=== PATIENT | female | born 1980 | race Caucasian/White ===

== ENCOUNTER 2019-12-27 06:49 | Outpatient (CLI) | payer MEDICARE, MEDICAID, SELFPAY ==
--- NOTE | ~2019-12-27 | MR_ITS ---
EXAMINATION: MR lumbar spine wo con EXAM DATE: 12/27/2019 07:45 INDICATION: Lumbar radiculopathy. TECHNIQUE: Multi-sequential, multiplanar MR images of the lumbar spine were obtained without contrast . Sagittal T1, T2, T2 fat saturation images. Axial T2 weighted images. Comparison is made to prior examination from 01/21/2019. FINDINGS: Moderate disc disease L5-S1. The vertebral body and disc heights are otherwise well maintai jesús. The vertebral bodies are aligned in the AP dimension. The conus medullaris terminates at the L1/ 2 level and has normal signal intensity and morphology. There are no suspicious marrow signal abnorm alities. Paraspinal soft tissue is unremarkable. Level by level evaluation: T12-L1: Disc does not extend beyond the endplate margin. Facet arthropathy: None. Neural foraminal stenosis: No stenosis. Central canal stenosis: No stenosis. L1-L2: Disc does not extend beyond the endplate margin. Facet arthropathy: None. Neural foraminal stenosis: No stenosis. Central canal stenosis: No stenosis. L2-L3: Disc does not extend beyond the endplate margin. Facet arthropathy: None. Neural foraminal stenosis: No stenosis. Central canal stenosis: No stenosis. L3-L4: Disc does not extend beyond the endplate margin. Facet arthropathy: Mild. Neural foraminal stenosis: No stenosis. Central canal stenosis: No stenosis. L4-L5: There is a minimal diffuse disc bulge. Facet arthropathy: Mild. Neural foraminal stenosis: No stenosis. Central canal stenosis: No stenosis. L5-S1: There is a moderate diffuse disc bulge. Facet arthropathy: Mild to moderate. Neural foraminal stenosis: Mild left. Central canal stenosis: Mild to moderate. Difficult to appreciate any significant change compared to prior study. IMPRESSION: 1. L5-S1 moderate disc disease, mild arthropathy. Reviewed, dictated and finalized at location A.
== END 2019-12-27 06:50 | disposition home or self-care (01) ==
LOC: ANHIMG 06:51
PROVIDERS: PCP Family Medicine; Visit Provider Nurse Practitioner Adult Health
DX: M54.16 Radiculopathy, lumbar region (principal); M51.36 Other intervertebral disc degeneration, lumbar region
CPT/HCPCS: 72148

== ENCOUNTER → 2020-03-28 08:27 | Outpatient (CLI) | payer MEDICARE, MEDICAID, SELFPAY ==
--- NOTE | ~2020-03-28 | XR_ITS ---
XR knee RT min 4V 03/28/2020 08:44 Indication: Right knee pain Procedure: 4 views right knee Comparison: 03/06/2010 Findings: No fracture, subluxation or dislocation. No significant joint space narrowing. No joint eff usion. No foreign bodies. Impression: 1: No significant bone or joint abnormality. Reviewed, dictated and finalized at location A. NG BOOKKEEPER Impression: 1: No significant bone or joint abnormality.
== END ==
PROVIDERS: Visit Provider Nurse Practitioner Adult Health
DX: M25.561 Pain in right knee (principal)
CPT/HCPCS: 73564

== ENCOUNTER 2020-05-16 07:43 | Outpatient (CLI) | payer MEDICARE, MEDICAID, SELFPAY ==
--- NOTE | ~2020-05-16 | MM_ITS ---
EXAMINATION: MM screening farshad BI w lisa HISTORY: Screening mammogram TECHNIQUE: Craniocaudal and mediolateral oblique 3-D tomosynthesis images were obtained and synthetic 2-D images were generated. CAD analysis was submitted and interpreted. COMPARISON: No prior mammogram is available for comparison at this institution. BREAST PARENCHYMAL COMPOSITION: The breasts are heterogeneously dense, which may obscure small masses . FINDINGS: There are several biopsy markers on the right. Several stable circumscribed masses are note d in the outer right breast, not significantly changed since 04/14/2019. There is no evidence of interval suspicious mass, calcification, or architectural distortion to sugg est malignancy in either breast. There has been no suspicious interval change. IMPRESSION: 1. No mammographic evidence of malignancy. 2. Recommend routine screening mammography in one year. BI-RADS Category 2: Benign finding(s). Reviewed, dictated and finalized at location A. INSTALLER
== END 2020-05-16 07:44 | disposition home or self-care (01) ==
LOC: ANHIMG 07:49
PROVIDERS: Visit Provider Obstetrics & Gynecology
DX: Z12.31 Encounter for screening mammogram for malignant neoplasm of breast (principal)
CPT/HCPCS: 77063; 77067

== ENCOUNTER 2020-06-30 15:40 | Emergency (ER) | payer MEDICARE, MEDICAID, SELFPAY ==
--- NOTE | ~2020-06-30 | XR_ITS ---
EXAMINATION: XR foot RT min 3V DATE: 06/30/2020 16:20 INDICATION: Right foot pain. TECHNIQUE: 4 views of right foot were obtained. COMPARISON: Right foot radiographs 01/11/2009 FINDINGS: There is moderate hallux valgus. No fracture. There is mild osteoarthritis of first metatar sophalangeal joint and fourth tarsometatarsal joint. There are enthesophytes at the posterior and theodore ntar aspects of calcaneal tuberosity. IMPRESSION: 1. Moderate hallux valgus. 2. Mild polyarticular osteoarthritis. Reviewed, dictated and finalized at location A. E SPECIALIST
--- NOTE | 2020-06-30 15:43 | ED.GENADULT ---
HPI - General Adult General Chief complaint: Extremity Injury, Lower Stated complaint: Right toe pain Time Seen by Provider: 06/30/20 15:43 Source: patient Mode of arrival: ambulatory Limitations: no limitations History of Present Illness HPI narrative: 40-year-old female patient presents to the [facility] with complaints of right second toe pain since yesterday. Denies any specific injury to the toe. Patient states she is not currently working at this time due to being on disability from a back injury. Patient does have history of type 2 diabetes and she does states she is concerned because her father ended up getting his leg amputated due to a broken toe that got infected. Patient states that she did take some in her milligrams ibuprofen that she does take daily. Denies any swelling or redness. Related Data Home Medications Medication Instructions Recorded Confirmed albuterol sulfate 1 inh INHALATION QID PRN 05/01/19 05/01/19 cyclobenzaprine 10 mg PO TID 05/01/19 05/01/19 duloxetine [Cymbalta] 30 mg PO DAILY 05/01/19 05/01/19 gabapentin 600 mg PO HS 05/01/19 05/01/19 oxycodone 10 mg PO TID PRN 05/01/19 05/01/19 atorvastatin 10 mg PO DAILY 06/30/20 06/30/20 famotidine 20 mg PO DAILY 06/30/20 06/30/20 hydrochlorothiazide 25 mg PO DAILY 06/30/20 06/30/20 ibuprofen 800 mg PO Q6H 06/30/20 06/30/20 metformin 1,000 mg PO DAILY 06/30/20 06/30/20 Allergies Allergy/AdvReac Type Severity Reaction Status Date / Time Sulfa (Sulfonamide Allergy Severe RASH Unverified 06/30/20 15:56 Antibiotics) phenol Allergy Unknown LOWER LIP Unverified 06/30/20 15:56 SWELLED SEVERELY CAMPHOR Allergy Unknown LOWER LIP Uncoded 06/30/20 15:56 SWELLED SEVERELY Review of Systems Review of Systems: Narrative: CONSTITUTIONAL: Denies fever, chills, or sweats. EYES: Denies visual changes, redness, or discharge. ENT: Denies rhinorrhea, congestion, sore throat, or otalgia. CARDIOVASCULAR: Denies chest pain, palpitations, or edema. RESPIRATORY: Denies cough or dyspnea. GASTROINTESTINAL: Denies abdominal pain, nausea, vomiting, or diarrhea. GENITOURINARY: Denies dysuria or hematuria. SKIN: Denies rash or itching. MUSCULOSKELETAL: Denies back pain, joint pain, or myalgia. Positive right second toe pain since yesterday NEUROLOGIC: Denies headache, numbness, or weakness. PSYCHIATRIC: Denies anxiety or depression. [facility] Past Medical History Medical History (Updated 06/30/20 @ 16:30 by MARIA ELENA Brooke) Chronic back pain Diabetes Endometriosis Opioid use Ovarian cyst Surgical History Surgical History (Updated 06/30/20 @ 15:45 by MARIA ELENA Brooke) H/O dilation and curettage History of orthopedic surgery Cyst removed back of right knee 2011 History of tubal ligation Family History Family History (Updated 06/30/20 @ 15:46 by MARIA ELENA Brooke) Other Hypertension Respiratory disease Social History Social History Gender identity (if verbalized by the patient): Female Comments At the time of my signature I agree with nursing past medical history, surgical, social, and family history. There is no relevant family history pertinent to the presenting complaint. Exam Narrative: Exam Narrative: GENERAL: Well-appearing, well-nourished, and in no acute distress. HEAD: Normocephalic, atraumatic. EYES: PERRLA and EOMI. ENT: Nares clear, no rhinorrhea or epistaxis. Mucous membranes moist. NECK: Supple. No lymphadenopathy CHEST: Clear to auscultation. No respiratory distress. HEART: Regular rate and rhythm. No murmur heard. Normal peripheral pulses. ABDOMEN: Soft, nontender, nondistended, normal active bowel sounds. EXTREMITIES: Patient able to bear weight and ambulate but complains of pain when walking to the sole under the right second toe.. No surface trauma, ecchymosis, erythema, lesions, ulcers or break in skin integrity. Patient has very slight swell
[2020-06-30 15:59] VITALS: BP 141/65; PULSE 90; RESP 18; TEMP 37.1; O2SAT 98
[2020-06-30 16:04] VITALS: BP 141/65; PULSE 90; RESP 18; TEMP 37.1; O2SAT 98
== END 2020-06-30 16:33 | disposition home or self-care (01) ==
PROVIDERS: Emergency Provider Nurse Practitioner Family; PCP Family Medicine
DX: M21.611 Bunion of right foot (principal); E11.9 Type 2 diabetes mellitus without complications; N80.9 Endometriosis, unspecified; Z79.84 Long term (current) use of oral hypoglycemic drugs
CPT/HCPCS: 73630; 99213; G0463

== ENCOUNTER 2021-06-12 11:04 | Outpatient (CLI) | payer MEDICARE, MEDICAID, SELFPAY ==
--- NOTE | ~2021-06-12 | MMUS_ITS ---
EXAMINATION: MM diagnostic farshad BI w lisa, US breast RT limited HISTORY: Palpable right breast lump TECHNIQUE: Additional 3-D tomosynthesis images of the breasts were performed and synthetic 2-D images were generated. CAD analysis was submitted and interpreted. High resolution Limited right breast ult rasound was performed. COMPARISON: Comparison to multiple prior studies sequentially, with oldest reviewed study dated 04/02/2018. BREAST PARENCHYMAL COMPOSITION: Breast composed of scattered areas of fibroglandular density FINDINGS: MAMMOGRAPHIC FINDINGS: The left breast is stable without evidence for malignancy. There are multiple right breast or masses. There are 3 tissue markers in the right breast. ULTRASOUND: Limited right breast ultrasound: A At 9:00, 5 cm from the nipple there is an oval hypoechoic mass measuring 11 x 8 x 10 mm. No internal vascularity or posterior features. Parallel orientation. At 10:00, 6 cm from the nipple there is an o lisette circumscribed hypoechoic mass measuring 1.4 x 0.8 x 1.3 cm without significant posterior features or internal vascularity. At 10:00, 7 cm from the nipple there is an oval hypoechoic mass measuring 1 .2 x 1.3 x 0.6 cm without posterior features or internal vascularity. In the area of palpable concern at 7:00, 5 cm from the nipple there is a slightly lobulated hypoechoic mass measuring 1.4 x 1.2 x 1. 5 cm. There is minimal marginal vascularity. No significant posterior features. This corresponds to a mass seen on mammography in the lower outer quadrant which has increased in size slightly compared w ith 04/14/2019. IMPRESSION: 1. Slightly increased size of mass of the right breast located at 7:00, 5 cm from the nipple which co rresponds to the palpable finding. 2. Ultrasound-guided right breast biopsy recommended. BI-RADS category 4, suspicious findings. Reviewed, dictated and finalized at location A. BROKER IMPRESSION: 1. Slightly increased size of mass of the right breast located at 7:00, 5 cm fr om the nipple which corresponds to the palpable finding. 2. Ultrasound-guided right breast biopsy recommended. BI-RADS category 4, suspicious findings.
== END 2021-06-12 11:05 | disposition home or self-care (01) ==
LOC: ANHIMG 11:06
PROVIDERS: PCP Family Medicine; Visit Provider Family Medicine
DX: N63.15 Unspecified lump in the right breast, overlapping quadrants (principal); N63.13 Unspecified lump in the right breast, lower outer quadrant; N63.11 Unspecified lump in the right breast, upper outer quadrant
CPT/HCPCS: 76642; 77062; 77066; G0279

== ENCOUNTER 2022-10-24 12:08 | Outpatient (CLI) | payer MEDICARE, MEDICAID, SELFPAY ==
--- NOTE | 2022-10-24 | ECG_ITS ---
Measurements Intervals [place] Rate: 82 P: -10 [place]: 158 QRS: 27 QRSD: 102 T: 72 QT: 396 QTc: 464 Interpretive Statements SINUS RHYTHM WITH OCCASIONAL ECTOPIC PREMATURE COMPLEXES NO PREVIOUS ECG AVAILABLE FOR COMPARISON Electronically Signed On 10-24-2022 15:29:28 CDT by Ana Johnston M.D.
[2022-10-24 13:00] LABS: Anion Gap 6 mmol/L (8-16); Blood Urea Nitrogen 15 mg/dL (7-17); Calcium 8.8 mg/dL (8.4-10.2); Carbon Dioxide 32 mmol/L (22-30); Chloride 101 mmol/L (98-107); Estimated Glomerular Filt Rate > 60; Glucose 131 mg/dL (65-110); Potassium 3.5 mmol/L (3.4-5.0); Sodium 139 mmol/L (137-145)
== END 2022-10-24 12:09 | disposition home or self-care (01) ==
PROVIDERS: PCP Family Medicine; Visit Provider Orthopaedic Surgery
DX: Z01.818 Encounter for other preprocedural examination (principal)
CPT/HCPCS: 36415; 80048; 93005

== ENCOUNTER 2023-08-10 08:08 | Emergency (ER) | payer MEDICARE, MEDICAID, SELFPAY ==
[2023-08-10 08:25] VITALS: BP 149/80; PULSE 94; RESP 16; TEMP 36.4; O2SAT 98
--- NOTE | 2023-08-10 08:42 | ED.URI ---
HPI - URI/Sore Throat General Chief Complaint: Upper Respiratory Infection Stated Complaint: Sore Throat Time Seen by Provider: 08/10/23 08:29 Source: patient and RN notes reviewed Mode of arrival: ambulatory Limitations: no limitations History of Present Illness HPI Narrative: Patient presents today complaining of sore throat, nasal congestion, fever up to 101, and body aches since yesterday. She has been taking ibuprofen and her home [place] with mild relief. States pain in the throat is only present with swallowing. Denies shortness of breath or difficulty swallowing. No history of asthma or COPD. Smokes 1 pack per day. Related Data Home Medications Medication Instructions Recorded Confirmed albuterol sulfate 90 mcg/actuation 1 inh inhalation QID PRN Pain 05/01/19 05/01/19 aerosol inhaler cyclobenzaprine 10 mg tablet 10 mg PO TID 05/01/19 06/30/20 duloxetine 30 mg capsule,delayed 30 mg PO DAILY 05/01/19 06/30/20 release (Cymbalta) gabapentin 600 mg tablet 600 mg PO TID 05/01/19 06/30/20 oxycodone 10 mg tablet 10 mg PO TID PRN Pain 05/01/19 06/30/20 atorvastatin 10 mg tablet 10 mg PO DAILY 06/30/20 06/30/20 famotidine 20 mg tablet 20 mg PO DAILY 06/30/20 06/30/20 hydrochlorothiazide 25 mg tablet 25 mg PO DAILY 06/30/20 06/30/20 ibuprofen 800 mg tablet 800 mg PO Q6H 06/30/20 06/30/20 metformin 1,000 mg tablet,extended 1,000 mg PO DAILY 06/30/20 06/30/20 release 24hr (osmotic) Allergies Allergy/AdvReac Type Severity Reaction Status Date / Time Sulfa (Sulfonamide Allergy Severe RASH Unverified 06/30/20 15:56 Antibiotics) phenol Allergy Unknown LOWER LIP Unverified 06/30/20 15:56 SWELLED SEVERELY CAMPHOR Allergy Unknown LOWER LIP Uncoded 06/30/20 15:56 SWELLED SEVERELY Review of Systems Review of Systems: CONSTITUTIONAL: Denies chills, or sweats.+ body aches, fever EYES: Denies visual changes, redness, or discharge. ENT: Denies rhinorrhea, or otalgia.+ congestion, sore throat CARDIOVASCULAR: Denies chest pain, palpitations, or edema. RESPIRATORY: Denies cough or dyspnea. GASTROINTESTINAL: Denies abdominal pain, nausea, vomiting, or diarrhea. GENITOURINARY: Denies dysuria or hematuria. SKIN: Denies rash, itching, or wounds. MUSCULOSKELETAL: Denies back pain, joint pain, or myalgia. NEUROLOGIC: Denies headache, numbness, tingling, or weakness. PSYCH: Denies depression or anxiety. [facility] Past Medical History Medical History Chronic back pain Diabetes Endometriosis Opioid use Ovarian cyst Surgical History Surgical History H/O dilation and curettage History of orthopedic surgery Cyst removed back of right knee 2011 History of tubal ligation Family History Family History Other Hypertension Respiratory disease Social History Social History Gender identity (if verbalized by the patient): Female Comments At time of signature, I have reviewed and agree with nursing past medical, surgical, social and family history unless otherwise noted. Please see nursing chart for further information. There is no relevant family history pertinent to the presenting complaint Exam Narrative: GENERAL: Well-appearing, well-nourished, and in no acute distress. HEAD: Normocephalic, atraumatic. EYES: EOMI. No redness or drainage. Conjunctivae normal. ENT: Mucous membranes pink and moist. Nares clear. No rhinorrhea. TMs normal bilaterally. Throat erythematous and mildly edematous. Moderate white exudate. Uvula midline. NECK: Normal AROM. Supple. Bilateral anterior cervical chain lymphadenopathy. CHEST: No respiratory distress. Clear to auscultation. HEART: Regular rate and rhythm. No murmur appreciated. Normal peripheral pulses. EXTREM
== END 2023-08-10 09:02 | disposition home or self-care (01) ==
PROVIDERS: Emergency Provider Nurse Practitioner; PCP Family Medicine
DX: B34.9 Viral infection, unspecified (principal); Z20.822 Contact with and (suspected) exposure to COVID-19; E11.9 Type 2 diabetes mellitus without complications; N80.9 Endometriosis, unspecified
CPT/HCPCS: 87081; 87426; 87804; 87880; 99213; G0463

== ENCOUNTER 2024-08-10 00:15 | Day surgery (SDC) | payer MEDICARE, MEDICAID, SELFPAY ==
[2024-07-29 13:03] VITALS: BMI 28.2
--- OUTSIDE RECORDS SUMMARY | 2024-08-10 00:18 | XMS_ITS | Clinical Summary ---
Author Organization [facility] Address [id number] [place] [phone] Phone Care Team Providers Care Optical Instrument Repairer Name Role Phone Tabitha Felix MD Primary Care Provider + Allergies Active Allergy Reactions Criticality Noted Date Comments Sulfa (Sulfonamide Antibiotics) Itching Low 04/25 Unclassified Drug Swelling Low 05/06/2018 Medications cyclobenzaprine (FLEXERIL) 10 mg tablet Take 10 mg by mouth 3 times daily as needed for Spasm. Active fluticasone (FLONASE) 50 mcg/spray [place], Suspension Administer 2 Sprays in each nostril daily. Active famotidine (PEPCID) 20 mg tablet Take 20 mg by mouth 2 times daily. Active gabapentin (NEURONTIN) 600 mg tablet Take 600 mg by mouth daily. Active ibuprofen (MOTRIN) 800 mg tablet Take 800 mg by mouth every 6 hours as needed for Pain, Mild. Active phentermine (ADIPEX P) 37.5 mg tablet Take 37.5 mg by mouth daily before breakfast. 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 Gender Identity Not on file Sexual Orientation Not on file Last Filed Vital Signs Vital Sign Reading Time Taken Comments Blood Pressure 132/89 09/09/2018 9:53 AM CDT Pulse 77 09/09/2018 9:53 AM CDT Temperature 36.9 C (98.4 F) 09/09/2018 9:53 AM CDT Respiratory Rate - - Oxygen Saturation 99% 09/09/2018 9:53 AM CDT Inhaled Oxygen Concentration - - Weight 85 kg (187 lb 8 oz) 09/09/2018 9:53 AM CD T Height 172.7 cm (5' 8 ) 09/09/2018 9:53 AM CDT Body Mass Index 28.51 09/09/2018 9:53 AM CDT Plan of Treatment Health Maintenance Due Date Last Done Comments DTAP/TDAP/TD VACCINES (1 - Tdap) 1998 HEPATITIS B VACCINES (1 of 3 - 19+ 3-dose series) 1998 CERVICAL CANCER SCREENING 2009 BREAST CANCER SCREENING 04/15/2019 04/15/20 18, 04/15/2018, 03/26/2017, Additional history exists INFLUENZA VACCINE (#1) 2023 COLORECTAL SCREENING 2024 Colorectal Cancer Screening 2024 FIT-DNA Q 3 years 2024 FIT/FOBT Q 1 year 2024 Flex Sig/CT Colonography Q 5 years 2024 HPV VACCINES Aged Out No longer eligi ble based on patient's age to complete this topic PNEUMOCOCCAL VACCINE 0-49 YEARS Aged Out No longer eligible based on patient's age to complete this topic Procedures Procedure Name Priority Date/Time Associated Diagnosis Comments MAMMO DIAGNOSTIC UNI RIGHT W OR WO CAD Routine 04/15/2018 from Last 3 Months or Most Recently Relevant to Health Maintenance Results * (ABNORMAL) MAMMO DIAGNOSTIC UNI RIGHT W OR WO CAD (04/15/2018) Anatomical Region Laterality Modality Breast Right Other us Abstract Provider MAMMO ORDERABLES Edited Result - Final from Last 3 Months or Most Recently Relevant to Health Maintenance Insurance [facility] [employer] MEDICAID Care Teams Optical Instrument Repairer Relationship Specialty Start Date End Date Tabitha Felix MD [address] [place] [address] [place] [id number] PCP - General Family Practice 05/06/18
--- OUTSIDE RECORDS SUMMARY | 2024-08-10 00:18 | XMS_ITS | Clinical Summary ---
Author Organization [facility] Address [address] [place] [address] Care Team Providers Care Hazardous Material Specialist Name Role Phone Tabitha Felix MD Primary Care Provider + Allergies Active Allergy Reactions Criticality Noted Date Comments Camphor-Phenol Seizures High 07/18/2021 Semaglutide Other (See comments) Low 10/12/2023 Pt reports sunburn feeling on skin with increased dose but is able to tolerate 1 mg Sulfa (Sulfonamide Antibiotics) Rash Medium 07/05/2020 Bupropion Headache Low 10/12/2023 Medications atorvastatin (LIPITOR) 20 mg tablet Take 1 tablet (20 mg total) by mouth daily 0 Active famotidine (PEPCID) 20 mg tablet Take by mouth 2 (two) times a day as needed 1 Active cyclobenzaprine (FLEXERIL) 10 mg tablet Take 1 tablet (10 mg total) by mouth every 8 (eight) hours as needed for muscle spasms 0 Active hydroCHLOROthia zide (HYDRODIURIL) 25 mg tablet Take 1 tablet (25 mg total) by mouth daily 0 Active ibuprofen (ADVIL,MOTRIN) 800 mg tablet Take 1 tablet (800 mg total) by mouth 3 (three) times a day as needed for headaches 1 Active potassium chloride ER (KLOR-CON) 20 mEq CR tablet Take 1 tablet (20 mEq total) by mouth daily Active OneTouch Verio test strips strip USE DIRECTED TO TEST BLOOD SUGARS ONCE DAILY 1 Active HYDROcodone-chica taminophen (NORCO) 10-325 mg per tablet Take 1 tablet by mouth 3 (three) times a day Active valACYclovir (VALTREX) 1 gram tablet Take 1 tablet (1,000 mg total) by mouth 2 (two) times a day as needed (cold sores) 3 Active pregabalin (LYRICA) 150 mg capsule Take 1 capsule (150 mg total) by mouth 2 (two) times a day 60 capsule 5 4 Active aspirin 81 mg enteric coated tablet Take 1 tablet (81 mg total) by mouth daily Active DULoxetine DR (CYMBALTA) 30 mg capsule Take 1 capsule (30 mg total) by mouth daily Active metFORMIN (GLUCOPHAGE) 500 mg tablet Take 1 tablet (500 mg total) by mouth nightly Active semaglutide (Ozempic) 1 mg/dose (4 mg/3 mL) pen injector injection Inject 1 mg under the skin every 7 days saturdays Active potassium chloride ER (KLOR-CON) 20 mEq CR tablet Take 2 tablets (40 mEq total) by mouth daily 30 tablet 4 Active ketorolac (TORADOL) 10 mg tablet Take 1 tablet (10 mg total) by mouth every 6 (six) hours as needed for pain 20 tablet 4 Active prochlorperazin e (COMPAZINE) 10 mg tablet Take 1 tablet (10 mg total) by mouth 2 (two) times a day as needed for nausea or vomiting 10 tablet 4 Active diphenhydrAMINE 25 mg capsule Take 1 tablet/capsule (25 mg total) by mouth every 6 (six) hours as needed for itching 20 capsule 4 Active SUMAtriptan (IMITREX) 100 mg tablet 4 Active acetaZOLAMIDE ER (DIAMOX SEQUAL) 500 mg capsule Take 1 capsule (500 mg total) by mouth 2 (two) times a day 60 capsule 11 4 Active Active Problems Problem Noted Date Diagnosed Date Idiopathic intracranial hypertension 10/28/2023 Overview (04/08/2024): --Presented to ED on 10/12/23 w/ flashes of light OS that started day prior. Denied HAs --Exam with bilateral optic disc edema w/ preserved afferent optic nerve function --MRI brain/orbits WWO + MRV with empty sella --LP normal w/ high OP (43) --Negative serologies: RPR, test Assessment & Plan (04/08/2024 5:14 PM METALIZING MACHINE OPERATOR): - Patient feels that her symptoms are continuing to improve - Exam with resolving disc edema OS, resolved OD. Good afferent nerve function OU - Taking Diamox 500mg BID PO without side effects Plan - Continue diamox 500mg BID - RTC in 4 months with OCT nerve OU, DFE OU Assessment & Plan (03/04/2024 4:39 PM CDT): - Patient feels that her symptoms are improving - Exam with resolving disc edema OS, resolved OD. Good afferent nerve function OU - Taking Diamox 1g BID PO (notes significant tingling of fingers, toes, face, etc.). Plan - Decrease diamox 500mg BID - RTC in 6 weeks with OCT nerve OU, DFE OU Assessment & Plan (12/12/2023 2:24 PM CDT): - Patient feels that her symptoms are stable (stable enlarged blind spot OS) - Exam with persistent disc edema OU, but slightly improved. Good afferent nerve function OU - Taking Diamox 1g BID PO (notes significant tingling of fingers, toes, face, etc.). Plan - Continue diamox 1g BID - RTC 6 weeks w/ dilated fundus exam (DFE) OU, OCT nerve Assessment & Plan (10/28/2023 12:26 PM CDT): --patient has had persistent headaches, large norwood spot centrally OS --exam with grade 2 disc edema OD, grade 3 disc edema OS. 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 Good afferent nerve function OU. --Taking Diamox 500mg TID (increased at [facility] on 10/18) Plan --Change diamox to 1g BID --HVF 24-2 OU at testing only visit (attempt to coordinate with intravenous fluorescein angiography (IVFA)) --RTC 4-6 weeks w/ dilated fundus exam (DFE) OU, OCT nerve, retina, and HVF 24-2 Choroidal neovascular membrane of left eye 10/27 Overview (12/12/2023): - IVFA completed 11/05/23 with diffuse leakage around the left ONH and superior disc margin. 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 Assessment & Plan (04/08/2024 5:13 PM METALIZING MACHINE OPERATOR): - Today with continued resolution of subretinal hemorrhage (SRH), resolved peripapillary exudates / drusen. VA excellent centrally. - F/u with [facility] on 12/23 w/ appropriate OCT mac with fluid resolution. No anti-VEGF injection Assessment & Plan (03/04/2024 4:40 PM CDT): - Today with resolved subretinal hemorrhage (SRH), resolved peripapillary exudates / drusen. VA excellent centrally. - OCT nerve with resolving RNFL edema - F/u with [facility] on 12/23 w/ appropriate OCT mac with fluid resolution. No anti-VEGF injection Plan - Decrease diamox 500mg BID - RTC in 6 weeks with OCT nerve OU, DFE OU Assessment & Plan (12/24/2023 2:18 PM CDT): Patient with diagnosed IIH with subretinal hemorrhage OS as well. IVFA completed 11/05/23 with diffuse leakage around the left ONH and superior disc margin. 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 Today, SRH resolved. VA remains excellent centrally as well. OCT mac with fluid resolution. Continuing to observe without injection. Keep appt with [facility] as well for managing IIH. Retina PRN Assessment & Plan (12/12/2023 2:21 PM CDT): - Today with resolved subretinal hemorrhage (SRH), persistent peripapillary exudates / drusen. VA excellent centrally. OCT mac confirms resolution of subretinal fluid (SRF). - Follows with retina (next appt 12/23/23). Deferring antiVEGF injections for now. Assessment & Plan (11/19/2023 12:44 PM CDT): Patient with newly diagnosed IIH with subretinal hemorrhage OS as well. IVFA completed 11/05/23 with diffuse leakage around the left ONH and superior disc margin. 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 Today, SRH continues to improve. VA remains excellent centrally as well. OCT mac with fluid resolution. Given underlying active IIH, discussed in detail r/b/a of antiVEGF injections and she would like to continue to observe. Given continued improvement on exam, recommend close monitoring. Plan for RTC 4 weeks for DFEx OU and OCT mac OU Keep appt with [facility] as well for managing IIH. Assessment & Plan (11/12/2023 11:13 AM CDT): Patient with newly diagnosed IIH with subretinal hemorrhage OS as well. IVFA completed 11/05/23 with diffuse leakage around the left ONH and superior disc margin. Today with improved SRH. VA remains excellent centrally as well. 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 We discussed in detail r/b/a of antiVEGF and for now will observe very closely. Will have her return in 1 week for DFE OU, fundus photos OU (at [facility]), OCT mac OU, possible antiVEGF OS Assessment & Plan (10/28/2023 12:24 PM CDT): --patient reporting persistent central norwood spot, unchanged since starting Diamox --ED presentation on 10/12/2023 consistent with IIH --exam today with bilateral disc edema as well as large peripapillary subretinal hemorrhage concerning for choroidal neovascular membrane in the setting of peripapillary disruption of Bruchs membrane secondary to optic disc edema Plan --HVF 24-2 OU and intravenous fluorescein angiography (IVFA) at the [facility] (testing visit) in 1 week --[facility] retina in 2 weeks for interpretation of above testing, dilated fundus exam (DFE) OU, OCT retina OU, OCT nerve OU Visual field scotoma 10/13/2023 Visual impairment 10/13/2023 Type 2 diabetes mellitus without complication Abnormal weight gain 09/05/2022 Hypercalcemia 09/05/2022 Mild dietary indigestion 09/05/2022 Torticollis 09/05/2022 Menopausal symptom 09/02/2022 Vitamin D deficiency 09/02/2022 Ingrowing toenail 08/19/2022 Dehiscence of operative wound 11/12/2021 Bunion 09/06/2021 Cigarette smoker 09/06/2021 Pain in right foot 09/06/2021 Breast mass 07/21/2021 Lumbar facet joint syndrome 07/05/2020 Myalgia 07/05/2020 Chronic bilateral low back pain without sciatica 07/05/2020 Other obesity due to excess calories 07/05/2020 Diabetes mellitus 10/15/2019 Hyperlipidemia 10/15/2019 Essential hypertension 07/21/2019 Axillary lump, left 06/16/2018 Fibrocystic breast changes, right 06/16/2018 Abnormal ultrasound of breast 05/06/2018 Fibroadenoma, right 05/06/2018 Degeneration of intervertebral disc of lumbosacr al region 09/30/2016 Pain of lower extremity 09/30/2016 Exacerbation of backache 06/26/2016 Immunizations Immunization Administration Dates Next Due Influenza, Quadrivalent, Spl it, Preservative Free, Intramuscular 02/21/2022,02/06/2021,02/22/2020,03/15,02/25/2018,05/27/2017 Influenza, Trivalent, Preser vative Free, Intramuscular 02/24/2016 Moderna SARS-CoV-2 Monovalen t Vaccination (12+ YRS) 08/15/2020,07/25/2020 Pfizer SARS-CoV-2 Monovalent Vaccination (12+ Yrs) PURPLE 05/02/2021 Tdap 06/01/2019 Surgical History Surgery Date Site/Laterality Comments KNEE SURGERY Knee Surgery - (Added by TW Conv) SD TUBOTUBAL ANASTATOMOSIS Oviductal Surgery Tubotubal Anastomosis - (Added by TW Conv) HYSTERECTOMY BREAST LUMPECTOMY BREAST BIOPSY 07/31/2021 Right BUNIONECTOMY 05/26/2021 - 05/25/2022 BREAST BIOPSY 05/12/2018 Right BREAST BIOPSY 05/12/2018 Right Medical History Medical History Date Comments Diabetes mellitus (HCC) Hypertension Type 2 diabetes mellitus (HCC) Gastric reflux Lumbar disc disease Lumbar stenosis Breast fibrosclerosis Pseudotumor cerebri Hyperlipidemia Depression Family History Medical History Relation Name Comments Diabetes Father Hypertension Father Diabetes Maternal Grandfather Hypertension Maternal Grandfather Cancer Maternal Grandmother Heart disease Maternal Grandmother Hypertension Mother Diabetes Other 1 Family history of diabetes mellitus - (Added by TW Conv) Hypertension Other 2 Family history of hypertension - (Added by TW Conv) Degenerative Disk Disease Other 3 Fa albert history of degenerative disc disease - (Added by TW Conv) Diabetes Paternal Grandfather Hypertension Paternal Grandfather Diabetes Paternal Grandmother Hypertension Paternal Grandmother Hypertension Sister Relation Name Status Comments Father Maternal Grandfather Maternal Grandmother Mother Other 1 Other 2 Other 3 Paternal Grandfather Paternal Grandmother Sister Social History Tobacco Use Types Packs/Day Years Used Date Smoking Tobacco: Every Day Smokeless Tobacco: Never Tobacco Cessation:Ready to Q uit: Yes; Counseling Given: Yes AUDIT-C Answer Date Recorded Q1: How often do you have a drink containing alc ohol? Monthly or less 10/08/2022 Q2: How many drinks containi ng alcohol do you have on a typical day when you are drinking? 1 or 2 10/08/2022 Q3: How often do you have si x or more drinks on one occasion? Never 10/08/2022 Personal Safety Answer Date Recorded Have you ever been in or are you currently in a harmful physical or emotional relationship or is someone making you feel afraid or unsafe? Denies 10/19/2023 Comments No Sex and Gender Information Value Date Recorded Sex Assigned at Not on file Legal Sex Female 10:19 AM METALIZING MACHINE OPERATOR Gender Identity Not on file Sexual Orientation Not on file Obstetrics History Last Filed Vital Signs Vital Sign Reading Time Taken Comments Blood Pressure 115/71 10/19/2023 6:45 PM CDT Pulse 68 10/19/2023 6:45 PM CDT Temperature 36.9 C (98.5 F) 10/19/2023 2:06 PM CDT Respiratory Rate 16 10/19/2023 6:45 PM CDT Oxygen Saturation 98% 10/19/2023 6:45 PM CDT Inhaled Oxygen Concentration - - Weight 85.7 kg (189 lb) 10/19/2023 2:06 PM CDT Height 170.2 cm (5' 7 ) 10/19/2023 2:06 PM CDT Body Mass Index 29.6 10/19/2023 2:06 PM CDT Plan of Treatment Health Maintenance Due Date Last Done Comments Albumin Creatinine Ratio, Urine 1979 Colon Cancer Screening-Colonoscopy 1979 Depression Screening 1979 Hemoglobin A1C 1979 Hepatitis C Screening 1979 Foot Exam 1979 Hepatitis B Screening 1997 Regular Well Visit/Exam 18-64 1997 Pneumococcal vaccine <65 (1 of 2 - PCV) 1998 Lipid Panel 02/21/2023 02/21/2022 Covid-19 Vaccine ( season) 2024 05/02/2021, 08/15/2020, 07/25/2020 Influenza Vaccine (#1) 2024 , 02/06/2021, 02/22/2020, Additional history exists eGFR 10/18/2024 10/19/2023, 10/12/2023 Breast Cancer Screening-Mammogram 12/24/2024 12/25/2023, 05/02/2022, 04/15/2018, Additional history exists Dilated Eye Exam 04/08/2025 04/08/2024, 02/2024, 12/24/2023, Additional history exists DTaP/Tdap/Td Vaccine (2 - Td or Tdap) 06/01/2029 06/01/2019 HPV Vaccines Aged Out No longer eligi ble based on patient's age to complete this topic Goals Goal Patient Goal Type Associated Problems Recent Progress Patient-Stated? Author CCM Chronic Pain Care Plan Chronic Care Management No change(10/17 8:56 AM CDT) No Naz Badillo, RN Note: Problem: Chronic Pain Goals: 1. Minimize further functional decline 2. Maximize quality of life 3. Control pain Strategies: - Activity/exercise program recommendation - Conservative stepwise pain medicine strategy with multi-disciplinary approach - Recommend healthy lifestyle strategies and compensatory methods as needed Procedures Procedure Name Priority Date/Time Associated Diagnosis Comments DIAGNOSTIC MAMMOGRAM BILATERAL W ZAFAR Schedule Routine, Read Routine (OP Routine) 12/25/2023 12:44 PM CDT Mass of right breast, unspecified quadrant EGFR STAT 10/19/2023 3:29 PM CDT LIPID PANEL Routine 02/21/2022 from Last 3 Months or Most Recently Relevant to Health Maintenance Results * Diagnostic Mammogram Bilateral W Zafar (12/25/2023 12:44 PM CDT) Anatomical Region Laterality Modality Breast Bilateral Mammography 12/25/2023 2:29 PM CDT Impressions 12/25/2023 2:31 PM CDT 1. Biopsy-proven fibroadenoma in the right breast at 8:30 corresponding to the palpable concern has slightly decreased in size from 202 and is benign. 2. No mammographic evidence of malignancy in either breast. OVERALL FINAL ASSESSMENT: BI-RADS Category 2: Benign. RECOMMENDATION: 1. Annual screening mammography is recommended. 2. Clinical follow-up is recommended. Dr. Olson discussed the above findings and recommendations with the patient, who expressed her understanding of the management plan. Dictated by: Nina Olson M.D. The radiology attending physician has personally reviewed this study, and had reviewed and/or edited this written report and agrees with it. Electronically signed by: Lian Owens M.D. Narrative 12/25/2023 2:31 PM CDT EXAMINATION: BILATERAL DIGITAL DIAGNOSTIC MAMMOGRAM INCLUDING CAD AND BILATERAL DIGITAL BREAST TOMOSYNTHESIS; RIGHT BREAST SONOGRAM HISTORY: 43-year-old woman with history of multiple right breast fibroadenomas, including an excisional biopsy in 2019 for fibroadenoma, presenting with enlarging palpable abnormality in the slightly lower outer right breast. COMPARISON: 05/02/2022 bilateral diagnostic mammogram and additional prior studies dating back to 2016. TECHNIQUE: Full field digital mammographic views of BOTH breasts were performed, including computer aided detection (CAD) and BILATERAL digital breast tomosynthesis (DBT). Directed ultrasound evaluation of the RIGHT breast was performed. BREAST PARENCHYMAL COMPOSITION: The breasts are heterogeneously dense, which may obscure small masses. MAMMOGRAM FINDINGS: Triangular palpable marker is present overlying the outer central right breast in the region of previously biopsied fibroadenoma, marked with a wing tissue marker. Multiple additional oval, circumscribed masses in the right breast are unchanged and benign. No new suspicious abnormality in either breast. SONOGRAM FINDINGS: In the right breast at 8:30, 6 cm on the nipple, in the area of palpable concern, there is an oval hypoechoic mass with circumscribed margins and parallel orientation measuring 1.7 x 1.6 x 1.1 cm. The mass measured 1.9 x 2.2 x 1.2 cm on 07/18/2021 (labeled 7:00, 3 cm from the nipple) and is consistent with biopsy-proven benign fibroadenoma. No suspicious cystic or solid mass in the area of concern. Procedure Note Lian Owens MD - 12/25/2023 EXAMINATION: BILATERAL DIGITAL DIAGNOSTIC MAMMOGRAM INCLUDING CAD AND BILATERAL DIGITAL BREAST TOMOSYNTHESIS; RIGHT BREAST SONOGRAM HISTORY: 43-year-old woman with history of multiple right breast fibroadenomas, including an excisional biopsy in 2019 for fibroadenoma, presenting with enlarging palpable abnormality in the slightly lower outer right breast. COMPARISON: 05/02/2022 bilateral diagnostic mammogram and additional prior studies dating back to 2016. TECHNIQUE: Full field digital mammographic views of BOTH breasts were performed, including computer aided detection (CAD) and BILATERAL digital breast tomosynthesis (DBT). Directed ultrasound evaluation of the RIGHT breast was performed. BREAST PARENCHYMAL COMPOSITION: The breasts are heterogeneously dense, which may obscure small masses. MAMMOGRAM FINDINGS: Triangular palpable marker is present overlying the outer central right breast in the region of previously biopsied fibroadenoma, marked with a wing tissue marker. Multiple additional oval, circumscribed masses in the right breast are unchanged and benign. No new suspicious abnormality in either breast. SONOGRAM FINDINGS: In the right breast at 8:30, 6 cm on the nipple, in the area of palpable concern, there is an oval hypoechoic mass with circumscribed margins and parallel orientation measuring 1.7 x 1.6 x 1.1 cm. The mass measured 1.9 x 2.2 x 1.2 cm on 07/18/2021 (labeled 7:00, 3 cm from the nipple) and is consistent with biopsy-proven benign fibroadenoma. No suspicious cystic or solid mass in the area of concern. IMPRESSION: 1. Biopsy-proven fibroadenoma in the right breast at 8:30 corresponding to the palpable concern has slightly decreased in size from 2021 and is benign. 2. No mammographic evidence of malignancy in either breast. OVERALL FINAL ASSESSMENT: BI-RADS Category 2: Benign. RECOMMENDATION: 1. Annual screening mammography is recommended. 2. Clinical follow-up is recommended. Dr. Olson discussed the above findings and recommendations with the patient, who expressed her understanding of the management plan. Dictated by: Nina Olson M.D. The radiology attending physician has personally reviewed this study, and had reviewed and/or edited this written report and agrees with it. Electronically signed by: Lian Owens M.D. us Antonio Troncoso NP IMG MAMMO PROCEDURES Final Re sult * eGFR (10/19/2023 3:29 PM CDT) eGFR >90 >=60 mL/min/1. 73 m2 Comment: Interpretive Data Reference Interval Normal >/= 90 mL/min/1.73m2 Mildly decreased* 60 - 89 mL/min/1.73m2 Mildly to moderately decreased 45 - 59 mL/min/1.73m2 Moderately to severely decreased 30 - 44 mL/min/1.73m2 Severely decreased 15 - 29 mL/min/1.73m2 Kidney Failure < 15 mL/min/1.73m2 *Relative to young adult level Estimated glomerular filtration rate is determined by the 2020 CKD-EPI equation recommended by the National Kidney Foundation (A Unifying Approach to GFR Estimation: Recommendations of the NKF-ASK Task Force on Reassessing the Inclusion of Race in Diagnosing Kidney Disease, JASN 202). The CKD-EPI equation should not be used for patients with unstable renal function and has not been validated in children and those over 70. Current interpretive data was last reviewed 2021. Blood 10/19/2023 3:29 PM CDT 10/19/2023 3:34 PM CDT us Deven Clemons MD LAB BLOOD ORDERABLES Final R esult [facility] [address] [place] [address] * (ABNORMAL) Lipid panel (02/21/2022) SCRIBED Cholesterol, Total 206(A) 100 - 200 EXTERNAL LAB SCRIBED HDL 53 40 - 100 EXTERNAL LAB SCRIBED LDL 104(A) 0 - 100 EXTERNAL LAB SCRIBED Triglycerides 243(A) 0 - 150 EXTERNAL LAB Blood 02/21/2022 Historical Provider LAB BLOOD ORDERABLES Eryn arteaga Result EXTERNAL LAB from Last 3 Months or Most Recently Relevant to Health Maintenance Insurance MEDICARE [facility] MEDICARE [facility] MEDICARE Care Teams Hazardous Material Specialist Relationship Specialty Start Date End Date Tabitha Felix MD PCP - General 09/30/16
--- OUTSIDE RECORDS SUMMARY | 2024-08-10 00:18 | XMS_ITS | Referral Summary ---
Author Organization [facility] Address [address] [place] [address] Care Team Providers Care Profile Mill Operator Tape Control Name Role Phone Tabitha Felix MD Primary [...] test Assessment & Plan (04/08/2024 5:14 PM SHIPPING TECHNICIAN): - Patient feels that her symptoms are [...] CNVM. Assessment & Plan (04/08/2024 5:13 PM SHIPPING TECHNICIAN): - Today with continued resolution of subretinal [...] for DFE OU, fundus photos OU (at [facility]), OCT mac OU, possible antiVEGF OS Assessment [...] and intravenous fluorescein angiography (IVFA) at the [facility] (testing visit) in 1 week --[facility] retina in 2 weeks for interpretation of [...] Vaccination (12+ Yrs) PURPLE 05/02/2021 Tdap 06/01/2019 Social History Tobacco Use Types Packs/Day Years [...] on file Legal Sex Female 10:19 AM SHIPPING TECHNICIAN Gender Identity Not on file Sexual Orientation [...] 10/19/2023 2:06 PM CDT Plan of Treatment Not on file Goals Goal Patient Goal Type Associated Problems Recent Progress Patient-Stated? Author CCM Chronic Pain Care Plan Chronic Care Management No change(10/17 8:56 AM CDT) No Naz Badillo, HUNTER Note: Problem: Chronic Pain Goals: 1. Minimize [...] of the management plan. Dictated by: Nina Betsy Wesley, M.D. The radiology attending physician has personally reviewed this study, and had reviewed and/or edited this written report and agrees with it. Electronically signed by: Lian Owens M.D. us Antonio Troncoso ERP PROGRAMMER IMG MAMMO PROCEDURES Final Re sult * [...] of Race in Diagnosing Kidney Disease, JASN 2020). The CKD-EPI equation should not be used for patients with unstable renal function and has not been validated in children and those over 70. Current interpretive data was last reviewed 2021. Blood 10/19/2023 3:29 PM CDT 10/19/2023 3:34 PM CDT us Deven Clemons MD LAB BLOOD ORDERABLES Final R esult [facility] [address] Department [place] [address] * (ABNORMAL) Lipid panel (02/21/2022) SCRIBED Cholesterol, Total 206(A) 100 - 200 EXTERNAL LAB SCRIBED HDL 53 40 - 100 EXTERNAL LAB SCRIBED LDL 104(A) 0 - 100 EXTERNAL LAB SCRIBED Triglycerides 243(A) 0 - 150 EXTERNAL LAB Blood 02/21/2022 us Historical Provider LAB BLOOD ORDERABLES Eryn arteaga Result EXTERNAL LAB from Last 3 Months or Most Recently Relevant to Health Maintenance Insurance MEDICARE [facility] [place] [address] MEDICARE IDPA IDPA MEDICARE Care Teams Profile Mill Operator Tape Control Relationship Specialty Start Date End Date Tabitha Felix MD PCP - General 09/30/16
--- OUTSIDE RECORDS SUMMARY | 2024-08-10 00:19 | XMS_ITS | Encounter Summary ---
Author Organization [facility] Healthcare Address [address] [place] [address] Care Team Providers Care Psych Arnp Name Role Phone Tabitha Felix MD Primary Care Provider + Reason for Visit * Diagnostic Imaging (Routine) - Closed Specialty Diagnoses / Procedures Referred By Yamel tenorio Referred To Contact Procedures Breast Imaging Screening Outside Reference Aft, Earnestine Gonzalez MD PhD [address] [place] [address] Phone: tel: fax: Referral ID Status Reason Start Date Expiration Date Visits Re quested Visits Authorized [id number] Closed 07/12/2021 08/11/2022 1 1 Encounter Details Date Type Department Care Team (Late st Contact Info) Description 05/16/2020 Hospital Encounter [facility] [address] [place] [address] [phone] Social History Tobacco Use Types Packs/Day Years Used Date Smoking Tobacco: Every Day Smokeless Tobacco: Never AUDIT-C Answer Date Recorded Q1: How often [...] on file 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 Monthly or less 10/08/2022 11:16 AM Eric Youssef RN Q2: How many drinks containing alcohol do you have on a typical day when you are drinking? 1 or 2 10/08/2022 11:16 AM Eric Youssef RN Q3: How often do you have six or more drinks on one occasion? Never 10/08/2022 11:16 AM Eric Youssef RN documented as of this encounter Plan of Treatment Not on file documented as of this encounter Goals Goal Patient Goal Type Associated Problems Recent Progress Patient-Stated? Author CCM Chronic Pain Care Plan Chronic Care Management No change(10/17 8:56 AM CDT) No Naz Badillo RN Note: Problem: Chronic Pain Goals: 1. Minimize further functional decline 2. Maximize quality of life 3. 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 There will be no report generated by a [facility] Radiologist. Narrative [facility] - 07/12/2021 4:25 PM HOME THERAPY TEACHER EXAMINATION: Images For Reference Purposes Only us Earnestine Morrow MD PhD IMG MAMMO PROCEDURES Final Result [facility] documented in this encounter Visit Diagnoses Not on filedocumented in this encounter Care Teams Psych Arnp Relationship Specialty Start Date End Date Tabitha Felix MD PCP - General 09/30/16 documented as of this encounter
--- OUTSIDE RECORDS SUMMARY | 2024-08-10 00:19 | XMS_ITS | Data Portability ---
Author Organization MD - [facility], Main Office Address [address] [place] [address] Care Team Providers Care Food And Nutrition Professor Name Role Phone JD YIN Primary Care Provider [phone] JD YIN Referring Provider Assessment No assessment recorded. Plan of Treatment Reminders Order Date Submit Date Provider Last Modified By Organization Details Last Modified Time Details Appointments Follow Up 30 2024 08:30A PRITI Blackwell Not available Not available Not available Lab glycohemo globin, total, blood [address] (Lab), [address] [place], [address], 12/29/2023 08:35:16 CMP, serum or plasma [address] (Lab), [address] [place], [address], 12/29/2023 08:35:17 Referral gastroent erologist referral - Please call patient to schedule an appointme nt. Thank you. 2023 024 [email or web address] Jignesh Castelan MD, [address] [facility] [address], [place], [address], 06/17/2024 09:23:43 gastroent erologist referral - Please call patient to schedule an appointme nt. Thank you. 2023 024 [email or web address] Tuyet Candelario MD, [address] [facility], [address], [place], [address], 01/24/2024 07:52:44 pain managemen t referral - Please call patient to schedule an appointme nt. Thank you. 2023 024 [email or web address] Karen Elias MD, [address] [place], [address], 12/17/2023 08:59:41 Procedures None recorded. Surgeries None recorded. Imaging MAMMO, diagnosti c, digital, unilatera l 2023 024 [email or web address] 56 Not available 12/02/2023 08:58:16 US, breast, unilatera l 2023 024 [email or web address] 56 Not available 11/26/2023 09:51:13 Medication Orders hydrocodo ne 10 mg-acetam inophen 325 mg tablet 2024 025 [facility] #65696, [address], [id number], 07/06/2024 10:49:24 fenofibra te micronize d 134 mg capsule 2024 025 [facility] #13336, [address], [id number], 07/06/2024 10:54:08 hydroxyzi ne HCl 10 mg tablet 2024 025 [facility] #67309, [address], [id number], 07/06/2024 10:50:24 hydrochlo rothiazid e 25 mg tablet 2024 025 [facility] #43118, [address], [id number], 07/06/2024 10:49:19 escitalop carole 10 mg tablet 2024 025 [facility] #70956, [address] [facility] [address] [facility], [place], [place], [id number], 07/06/2024 10:47:47 escitalop carole 20 mg tablet 2024 025 [facility] #76716, [address] [address], [place], [place], [id number], 07/06/2024 10:47:46 potassium chloride ER 20 mEq tablet,ex tended release 2023 024 [facility] #21918, [address], [id number], 03/30/2024 11:17:10 hydrocodo ne 10 mg-acetam inophen 325 mg tablet 2023 024 [facility] #78044, [address], [id number], 12/22/2023 17:22:52 ketorolac 60 mg/2 mL intramusc ular solution 2023 024 [email or web address] Not available 12/22/2023 17:39:58 Depo-Medr ol 80 mg/mL suspensio n for injection 2023 024 [email or web address] Not available 12/22/2023 17:41:46 prednison e 20 mg tablet 2023 024 [email or web address] [facility] #85875, [address], [id number], 03/30/2024 11:05:33 Klor-Con M20 mEq tablet,ex tended release 2023 024 [id number] 90 [facility] #74855, [address], [id number], 07/29/2024 19:06:19 hydrocodo ne 10 mg-acetam inophen 325 mg tablet 2023 024 [facility] #52525, [address], [place], [place], [id number], 11/18/2023 16:16:43 Patient TargetsNo targets recorded. Patient Instructions Encounter Date Encounter Id Patient Instructions Last Modified By Organization Details Last Modified Time 07/06/2024 [id number] she feels she is a mess. Counseled . no si/hi. 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 reviewed labs , gave copy . has a fatty liver , liver enzymes up a little . discuss with her GI doc . avoid sugars a1c is 6.1..... was 5.9 last time [email or web address] Not available 07/06/2024 11:04:12 Reason for Referral Pain Management Referral for Degeneration of intervertebral disc lumbar DDD Please call patient to schedule an appointment. Thank you. Referring Physician: Antonio [facility], Encounter Date: 11/18/2023 Pickle Maker Referral for Screening for malignant neoplasm of colon Please call patient to schedule an appointment. Thank you. Referring Physician: Jd Yin [facility], Encounter Date: 12/22/2023 Pickle Maker Referral for Screening for malignant neoplasm of colon Needs a screening colonoscopy . Please call patient to schedule an appointment. Thank you. Referring Physician: Jd Yin [facility], Encounter Date: 03/30/2024 Results Created Date Observation Date Name Description Value Unit Range Abnormal Flag Note LastModifiedBy Organization Detail LastModifiedTime 12/25/1912/25/2023 imagi ng/di agnos tic resul t No observ ation record ed. KATHLEEN [facility] [address] [place], [address], 01/19/2024 12:40:19 12/25/19 24 12/25/2023 MAMMO , diagn ostic , digit al, bilat eral No observ ation record ed. [email or web address] [facility] [address] [place], [address], 01/05/2024 23:41:44 12/25/19 24 12/25/2023 MAMMO , diagn ostic , digit al, bilat eral No observ ation record ed. [email or web address] [facility] ([facility] [address] [facility] [address], [place], [address], 01/05/2024 23:41:45 Result Notes None recorded. Problems Name Problem SNOMED Code Status Onset Date Resolution Date Notes Provider Name and Address Organization Details Recorded Time Exacerba tion of backache 060812501 Active 2016 Not Available [facility] 3 02:51:41 Abnormal weight gain 037911586 Active Not Available [facility] 3 02:51:41 Postoper ative visit 643387021 Active 2021 Not Available [facility] 3 02:51:41 Dehiscen ce of surgical wound 55639897 Active 2021 Not Available [facility] 3 02:51:41 Pain in right foot 57232426268 9107 Active 2021 Not Available [facility] 3 02:51:41 Mild dietary indigest ion 768681539 Active Not Available [facility] 3 02:51:41 Bunion 290057845 Active 2021 Not Available [facility] 3 02:51:41 Bunion 186291243 Active Not Available [facility] 3 02:51:42 Hyperlip idemia 51044868 Active 2019 Not Available [facility] 3 02:51:42 Essentia l hyperten tad 95433472 Active 2019 Not Available [facility] 3 02:51:42 Cigarett e smoker 29203702 Active 2021 Not Available [facility] 3 02:51:42 Hypercal cemia 62150354 Active Not Available [facility] 3 02:51:42 Torticol lis 17428340 Active Not Available [facility] 3 02:51:42 Prediabe kiana 012345775 Completed 201902/06/2021 Not Available [facility] 3 02:51:42 Diabetes mellitus 29548370 Active 2019 Not Available [facility] 3 02:51:42 Degenera tion of interver tebral disc 67730325 Active 2022 Tabitha Felix MD [address], [address], [place], [address] , [employer] [facility] 3 10:26:21 Ingrowin g toenail 135939142 Active 2022 Tabitha Felix MD [address], [address], [place], [address] , [employer] [facility] 3 07:42:59 Degenera tion of lumbar interver tebral disc 73580481 Active 2022 Tabitha Felix MD [address], [place], [address] , [employer] [facility] 3 11:30:16 Menopaus al symptom 75690899 Active 2022 Tabitha Felix MD [address], [address], [place], [address] , [employer] [facility] 3 11:36:45 Increase d liver function 95622868 Active 2022 Tabitha Felix MD [address], [address], [place], [address] , [employer] [facility] 3 11:37:03 Vitamin D deficien cy 17820845 Active 2022 Tabitha Felix MD [address], [address], [place], [address] , [employer] [facility] 3 11:37:35 Herpes labialis 1243326 Active 2022 MARIA ELENA Mckeon [address], [address], [place], [address] , [employer] [facility] [employer] [facility] 3 14:04:26 Pain of right knee joint 97990079559 4100 Active 2022 Kadi Dengfrances, ATC L null, [place] [facility] [place] [facility] 3 10:35:05 Derangem ent of medial meniscus 803398241 Active 2022 PRITI Magaña [address], [address], [place], [address] , [place] [facility] [place] [facility] 3 11:13:19 Derangem ent of medial meniscus 775389384 Active 2022 PRITI Magaña [address], [address], [place], [address] , [place] [facility] [place] [facility] 3 11:14:09 Osteoart hritis of right knee joint 93442875994 9100 Active 2022 PRITI Magaña [address], [place], [address] , [place] [facility] [place] [facility] 3 11:14:09 Tear of medial meniscus of knee 539834167 Active 2022 Keturah Ean null, [place] [facility] [place] [facility] 3 10:32:12 Tear of medial meniscus of knee 859618292 Active 2022 Keturah Ean null, [place] [facility] [place] [facility] 3 10:32:24 Skin lesion 12999439 Active 2022 Tabitha Felix MD [address], [address], [place], [address] , [place] [facility] [place] [facility] 3 08:24:04 Hypokale gladis 60491143 Active 2022 Tabitha Felix MD [address], [address], [place], [address] , [place] [facility] [place] [facility] 3 09:48:46 Restless legs 54120276 Active 2023 Tabitha Felix MD [address], [address], [place], [address] , [place] [facility] [place] [facility] 4 08:34:02 Thyroid function tests abnormal 974786025 Active 2023 Tabitha Felix MD [address], [address], [place], [address] , [employer] [facility] [employer] 4 18:07:22 Pain in throat 785736493 Active 2023 Tabitha Felix MD [address], [place], [address] , [employer] [facility] 4 07:49:23 Vaginiti s 59130398 Active 2023 Tabitha Felix MD [address], [address] [facility], [place], [address] , [employer] [facility] 4 13:39:54 Upper respirat ory infectio n 93431242 Active 2023 BEN Forde [address] [employer], [address] [address], [place], [address] , [employer] [facility] 4 12:27:55 Type 2 diabetes mellitus without complica tion 442536951 Active 2023 Tabitha Felix MD [address], [address] [address], [place], [address] , [employer] [facility] 4 08:34:40 Visual field scotoma 15588083 Active 2023 Tabitha Felix MD [address], [place], [address] , [employer] [facility] 4 09:37:00 Visual impairme nt 514746874 Active 2023 Tabitha Felix MD [address], [place], [address] , [employer] [facility] 4 09:37:19 Benign intracra nial hyperten tad 02378859 Active [address] notes [facility]. Dr. Julieta Sanchez I tried to change to Idiopath ic intracra nial hyperten tad . PRITI Rodríguez [address], [address], [place], [address] , [place] [facility] 4 17:19:44 Mammogra phy abnormal 017077799 Active 2023 MARIA ELENA Forde-C [address], [place], [address] , [place] [facility] 4 16:05:15 Mass of right breast 97019042266 608963 Active 2023 MICHEL FordeC [address], [address], [place], [address] , [employer] [place] [facility] 4 12:49:11 Screenin g for malignan t neoplasm of colon Active 2023 PRITI Rodríguez [address], [place], [address] , [employer] [facility] 4 17:31:51 Migraine 11571770 Active 2023 PRITI Rodríguez [address], [address], [place], [address] , [employer] [facility] 4 16:02:14 Adult health examinat ion Active 2023 PRITI Rodríguez [address], [address], [place], [address] , [employer] [facility] 4 10:37:32 Nicotine dependen ce 98369420 Active 2023 PRITI Rodríguez [address], [place], [address] , [employer] [facility] 4 11:22:23 Overweig ht 469987870 Active 2024 PRITI Rodríguez [address], [place], [address] , [employer] [facility] 5 14:54:44 Depressi ve disorder 64955769 Active 2024 PRITI Rodríguez [address], [place], [address] , [facility] [employer] [facility] 10:45:25 Anxiety 92307509 Active 2024 PRITI Rodríguez [address], [place], [address] , [facility] [employer] [facility] 5 10:49:31 Sinusiti s 88679938 Active 2024 PRITI Rodríguez [address] [facility] [address], [place], [address] , [facility] [employer] [facility] [employer] [facility] 14:00:42 Notes:lumbar injury diabilit y . Problem Notes None recorded. Procedures Surgical History Date Name Laterality Status Provider Name and Address Organization Details Recorded Time 09/03/19 23 Medicare Wellness CPT Code, subsequent completed Neena Guzmán RN [facility] [employer] [facility] 08/29/2022 15:14:34 05/26/19 19 Hysterectomy, Partial completed Not Available [facility] 07/24/2022 02:40:07 05/26/19 11 Knee Surgery completed Kadi Meyer RN [facility] 12/22/2023 17:04:50 excision of fibroadenoma of breast completed Not Available [facility] 07/24/2022 02:40:07 Knee Surgery completed Kadi Meyer RN [facility] [employer] 12/22/2023 17:05:02 excision of bunion completed Kadi Meyer RN [facility] [employer] [facility] 12/22/2023 17:05:19 removal of ovarian cyst completed Kadi Meyer RN [facility] [employer] [facility] 12/22/2023 17:05:35 Imaging Results Imaging Date Name Status LastModified by Organiz atformerly [facility], [facility] Details LastModified Time 12/25/2023 imaging/diagno stic result completed [facility] Breast [address], [address], 01/19/2024 12:40:19 12/25/2023 MAMMO, diagnostic, digital, bilateral completed [email or web address] [address], [address], 01/05/2024 23:41:44 12/25/2023 MAMMO, diagnostic, digital, bilateral completed [email or web address] [facility] ([facility]) [address] [facility] [address], [place], [address], 01/05/2024 23:41:45 Procedure Notes None recorded. Medical Equipment None Reported. Allergies Allergen ID Allergen Name Allergen Category Reaction Reaction Severity Criticality Documentation Date Start Date Code Code System Note Provider Name and Address Organization Details Recorded Time 4990 Substance with sulfonami de structure and antibacte rial mechanism of action (substanc e) medicatio n itching moderate Not available 07/24/20222011 05169 8003 SNOMED for knee surg Not Available [facility] 3 03:06:01 4991 [employer] medicatio n seizure severe Not available 07/24/2022 12076 5 RxNorm extre me swell ing in lips. Not Available [facility] 3 03:06:01 Medications Name Sig Start Date Stop Date Status Note LastModified by Organization Details LastModified Time cyclobenz aprine 10 mg tablet TAKE 1 TABLET BY MOUTH THREE TIMES DAILY NEEDED active Not Available Not Available No t Available amoxicill in 500 mg capsule TAKE 1 CAPSULE BY MOUTH THREE TIMES DAILY 07/08 completed Not Available Not Available Not Available metformin 500 mg tablet TAKE 1 TABLET BY MOUTH TWICE DAILY active Not Available Not Available No t Available bupropion HCl SR 150 mg tablet,12 hr sustained -release Take 1 tablet every day by oral route in the morning. active Not Available Not Available No t Available prednison e 10 mg tablet PLEASE SEE ATTACHED FOR DETAILED DIRECTIO NS 11/07 completed Not Available Not Available Not Available gabapenti n 600 mg tablet TAKE 1 TABLET BY MOUTH EVERY 8 HOURS 10/10 completed Not Available Not Available Not Available doxycycli ne hyclate 100 mg capsule Take 1 capsule twice a day by oral route for 10 days. active Not Available Not Available No t Available atorvasta tin 20 mg tablet TAKE 1 TABLET BY MOUTH EVERY DAY active Not Available Not Available No t Available clindamyc in HCl 300 mg capsule active Not Available Not Available Not Available atorvasta tin 10 mg tablet TAKE 1 TABLET BY MOUTH EVERY DAY active Not Available Not Available No t Available azithromy jay jay 250 mg tablet TAKE 2 TABLETS (500 MG) BY ORAL ROUTE ONCE DAILY FOR 1 DAY THEN 1 TABLET (250 MG) BY ORAL ROUTE ONCE DAILY FOR 4 DAYS 10/06 completed Not Available Not Available Not Available ibuprofen 800 mg tablet TAKE 1 TABLET BY MOUTH THREE TIMES DAILY NEEDED active Not Available Not Available No t Available acetazola mide ER 500 mg capsule,e xtended release TAKE 1 CAPSULE BY MOUTH TWICE A DAY active Not Available Not Available No t Available tizanidin e 4 mg tablet TAKE 1 TABLET EVERY 6 HOURS BY ORAL ROUTE NEEDED FOR 3 DAYS. 03/15 completed Not Available Not Available Not Available fluconazo le 150 mg tablet TAKE 1 TABLET BY MOUTH FOR ONE TIME 10/06 completed Not Available Not Available Not Available valacyclo vir 1 gram tablet TAKE 1 TABLET BY MOUTH EVERY 8 HOURS FOR 7 DAYS 10/06 completed Not Available Not Available Not Available sumatript an 100 mg tablet TAKE 1 TABLET BY MOUTH AT ONSET OF HEADACHE . MAY REPEAT IN 2 HOURS IF HEADACHE NOT GONE. NO MORE THAN 2 TABLET IN ANY 24 HOUR PERIOD active Not Available Not Available No t Available hydrocodo ne 5 mg-acetam inophen 325 mg tablet Take 1 tablet every 6 hours by oral route. 11/06 completed Not Available Not Available Not Available fluconazo le 200 mg tablet active Not Available Not Available Not Available meloxicam 15 mg tablet Take 1 tablet every day by oral route with meal(s) for 30 days. 12/21 completed Not Available Not Available Not Available prednison e 20 mg tablet Take 2 tabs PO twice daily for 2 days; 1 tab PO twice daily for 5 days; 1/2 tab PO twice daily for 2 days; 1/2 tab PO once for 1 day. TAKE 2ND DOSE EVERYDAY AT NOON-10 DAY COURSE 03/30 completed Not Available Not Available Not Available phentermi ne 15 mg capsule Take 1 capsule every day by oral route. 06/18 completed Not Available Not Available Not Available acetazola mide 250 mg tablet TAKE 2 TABLETS (500 MG TOTAL) BY MOUTH 3 (THREE) TIMES A DAY 12/21 completed dose adjustme nt Not Available Not Available Not Available topiramat e 25 mg tablet Take 2 tablets twice a day by oral route for 30 days. 07/29 completed Not Available Not Available Not Available phentermi ne 37.5 mg tablet TAKE 1 TABLET BY MOUTH EVERY DAY 10/06 completed Not Available Not Available Not Available prochlorp erazine maleate 10 mg tablet TAKE 1 TABLET BY MOUTH EVERY 12 HOURS NEEDED 12/21 completed Not Available Not Available Not Available ciproflox acin 500 mg tablet TAKE 1 TABLET BY MOUTH EVERY 12 HOURS FOR 10 DAYS active Not Available Not Available No t Available Tamiflu 75 mg capsule Take 1 capsule every day by oral route for 5 days. 04/23 completed Not Available Not Available Not Available hydrocodo ne 10 mg-acetam inophen 325 mg tablet TAKE 1 TABLET BY MOUTH THREE TIMES DAILY NEEDED active Not Available Not Available No t Available aspirin 81 mg tablet,de layed release TAKE 1 TABLET BY MOUTH EVERY DAY active Not Available Not Available No t Available tramadol 50 mg tablet TAKE 1 TABLET BY MOUTH EVERY 6 HOURS NEEDED. MUST LAST 30 DAYS 03/20 completed Not Available Not Available Not Available ketorolac 30 mg/mL (1 mL) injection solution 1 ml IM x 1 07/03 completed [facility]-4199 2e Not Available Not Available Not Available fenofibra te micronize d 134 mg capsule TAKE 1 CAPSULE BY MOUTH EVERY DAY FOR HIGH TRIGLYCE RIDES active Not Available Not Available No t Available Depo-Medr ol 80 mg/mL suspensio n for injection Take 1 mL by injectio n route. 2023 active Not Available Not Available Not Avai lable baclofen 20 mg tablet active Not Available Not Available Not Available ketorolac 10 mg tablet TAKE 1 TABLET BY MOUTH EVERY 6 HOURS NEEDED 12/21 completed Not Available Not Available Not Available prednison e 10 mg tablets in a dose pack Take 1 tab by mouth, 3 times a day for 3 daysTake 1 tab by mouth 2 times a day for 2 daysTake 1 tab by mouth once a day for 1 day 11/07 completed Not Available Not Available Not Available meloxicam 7.5 mg tablet Take 1 tablet every day by oral route as needed. 02/26 completed Not Available Not Available Not Available oxycodone -acetamin ophen 5 mg-325 mg tablet TAKE 1 TABLET BY MOUTH EVERY 8 HOURS NEEDED FOR PAIN X 3 DAYS active Not Available Not Available No t Available alprazola m 0.5 mg tablet TAKE 1 TABLET BY MOUTH ONE HOUR PRIOR TO PROCEDUR E, 1 TAB 30 MIN AND 1 TAB ON STAND BY FOR 1 DAYS 03/15 completed Not Available Not Available Not Available amoxicill in 875 mg tablet TAKE 1 TABLET BY MOUTH EVERY 12 HOURS FOR 7 DAYS 10/06 completed Not Available Not Available Not Available potassium chloride ER 20 mEq tablet,ex tended release(p art/cryst ) TAKE 1 TABLET BY MOUTH EVERY DAY active Pt was advised at [facility] to take 2 tabs daily Not Available Not Available Not Available famotidin e 20 mg tablet TAKE 1 TABLET BY MOUTH TWICE DAILY NEEDED active Not Available Not Available No t Available oxycodone -acetamin ophen 10 mg-325 mg tablet TAKE 1 TABLET BY MOUTH EVERY 6 HOURS FOR 5 days 12/06 completed Not Available Not Available Not Available ciproflox acin 0.3 % eye drops active Not Available Not Available Not Available Kenalog 10 mg/mL suspensio n for injection Take 20 mg by injectio n route. 11/07 completed [facility]: [phone] Not Available Not Available Not Available benzonata te 100 mg capsule 09/14 completed Not Available Not Available Not Available doxycycli ne monohydra te 100 mg capsule Take 1 capsule twice a day by oral route with meals for 5 days. 11/29 completed Not Available Not Available Not Available cephalexi n 500 mg capsule TAKE 1 CAPSULE BY MOUTH TWICE DAILY FOR 7 DAYS 07/08 completed Not Available Not Available Not Available gabapenti n 300 mg capsule active Not Available Not Available Not Available Banophen 25 mg capsule TAKE 1 CAPSULE BY MOUTH EVERY 6 HOURS NEEDED 12/21 completed Not Available Not Available Not Available diclofena c sodium 75 mg tablet,de layed release TAKE 1 TABLET TWICE A DAY BY ORAL ROUTE NEEDED. 10/10 completed Not Available Not Available Not Available cephalexi n 500 mg tablet Take 1 tablet twice a day by oral route for 7 days. 09/25 completed Not Available Not Available Not Available hydrochlo rothiazid e 25 mg tablet TAKE 1 TABLET BY MOUTH EVERY DAY active Not Available Not Available No t Available zolpidem 5 mg tablet TAKE 1 TABLET BY MOUTH EVERY DAY AT BEDTIME NEEDED 11/07 completed Not Available Not Available Not Available ketorolac 60 mg/2 mL intramusc ular solution Inject 2 mL every day by intramus cular route for 1 day. 2023 active Not Available Not Available Not Andressa cheng ketoconaz ole 2 % topical cream active Not Available Not Available Not Available hydroxyzi ne HCl 10 mg tablet TAKE 1 TABLET BY MOUTH UP TO THREE TIMES DAILY active Not Available Not Available No t Available ondansetr on 4 mg disintegr ating tablet PLACE 2 TABLETS UNDER TONGUE TWICE DAILY NEEDED FOR 3 DAYS 04/26 completed Not Available Not Available Not Available fluticaso ne propionat e 50 mcg/actua tion nasal spray,ned pension SPRAY 2 SPRAYS INTO EACH NOSTRIL EVERY DAY active Not Available Not Available No t Available metformin ER 500 mg tablet,ex tended release 24 hr TAKE 1 TABLET BY MOUTH EVERY DAY active Not Available Not Available No t Available medroxypr ogesteron e 150 mg/mL intramusc ular suspensio n 07/29 completed Not Available Not Available Not Available naproxen 500 mg tablet active Not Available Not Available Not Available amoxicill in 875 mg-potass ium clavulana te 125 mg tablet 09/14 completed Not Available Not Available Not Available oxycodone 5 mg tablet TAKE 1 TABLET (5 MG TOTAL) BY MOUTH EVERY 8 (EIGHT) HOURS NEEDED FOR PAIN 08/10 completed Not Available Not Available Not Available escitalop carole 10 mg tablet TAKE 1 TABLET BY MOUTH EVERY DAY IN THE MORNING active Not Available Not Available No t Available escitalop carole 20 mg tablet TAKE 1 TABLET BY MOUTH EVERY DAY AT NOON active Not Available Not Available No t Available cyclobenz aprine 5 mg tablet Take 1 tablet 3 times a day by oral route. active Not Available Not Available No t Available acyclovir 5 % topical cream APPLY TO AFFECTED AREA 5 TIMES A DAY TO FEVER BLISTERS ON LIP active Not Available Not Available No t Available bupropion HCl XL 150 mg 24 hr tablet, extended release TAKE 1 TABLET BY MOUTH EVERY DAY active Not Available Not Available No t Available hydrocort isone butyrate- emollient 0.1 % topical cream active Not Available Not Available Not Available topiramat e 50 mg tablet TAKE 1 TABLET BY MOUTH TWICE A DAY 03/15 completed Not Available Not Available Not Available metformin ER 1,000 mg tablet,ex tended release 24hr (osmotic) TAKE 1 TABLET BY MOUTH EVERY DAY 05/30 completed Not Available Not Available Not Available metformin ER 500 mg tablet,ex tended release 24hr (osmotic) Take 1 tablet every day by oral route. 10/10 completed Not Available Not Available Not Available duloxetin e 20 mg capsule,d elayed release TAKE 1 CAPSULE BY MOUTH EVERY DAY 06/23 completed Not Available Not Available Not Available duloxetin e 30 mg capsule,d elayed release TAKE 1 CAPSULE BY MOUTH EVERY DAY active Not Available Not Available No t Available BD Ultra-Fin e Mini Pen Needle 31 gauge x 3/16 active Not Available Not Available Not Available metformin ER 1,000 mg tablet,ex tended release 24 hr Take 1 tablet every day by oral route. active Not Available Not Available No t Available pregabali n 150 mg capsule TAKE 1 CAPSULE BY MOUTH TWICE DAILY active Not Available Not Available No t Available Vitamin D3 2,000 units daily active Not Available Not Available No t Available multivita min active Not Available Not Available Not Available lidocaine (PF) 10 mg/mL (1 %) injection solution In office injectio n administ ered by the provider 12/05 completed [facility]: [id number] 11-09 Not Available Not Available Not Available varenicli ne tartrate 1 mg tablet TAKE 1 TABLET 2 TIMES A DAY BEGIN ON DAY 8 OF DOSING FOR 11 WEEKS. TAKE WITH FULL GLASS OF WATER. 10/10 completed Not Available Not Available Not Available varenicli ne tartrate 0.5 mg tablet TAKE WITH FULL GLASS OF WATER. 0.5 MG DAILY X 3 DAYS , THEN 0.5 MG 2 TIMES A DAY FOR 4 DAYS. 10/10 completed Not Available Not Available Not Available ProAir HFA 90 mcg/actua tion aerosol inhaler 09/14 completed Not Available Not Available Not Available oxycodone 10 mg tablet TAKE 1 TABLET BY MOUTH THREE TIMES DAILY NEEDED 11/07 completed Not Available Not Available Not Available ketorolac 30 mg/mL injection solution Inject 1 mL as needed by intraven ous route as directed . 04/30 completed Not Available Not Available Not Available buprenorp ayse 8 mg-naloxo ne 2 mg sublingua l film USE 2 FILMS EVERY DAY BY SUBLINGU ALLY DIRECTED FOR 3 DAYS. 02/28 completed Not Available Not Available Not Available desoximet asone 0.05 % topical ointment active Not Available Not Available Not Available ropivacai ne (PF) 5 mg/mL (0.5 %) injection solution Take 20 mg by injectio n route. 11/07 completed Not Available Not Available Not Available Duexis 800 mg-26.6 mg tablet TAKE ONE TABLET BY MOUTH TWICE A DAY 02/25 completed Not Available Not Available Not Available OneTouch Verio test strips active Not Available Not Available Not Available Chantix Starting Month Box 0.5 mg (11)-1 mg (42) tablets in dose pack active Not Available Not Available Not Available OneTouch Verio Mid Control solution USE DIRECTED active Not Available Not Available No t Available Zubsolv 1.4 mg-0.36 mg sublingua l tablet 03/15 completed Not Available Not Available Not Available potassium chloride ER 20 mEq tablet,ex tended release TAKE 1 TABLET BY MOUTH TWICE DAILY active Not Available Not Available No t Available Saxenda 3 mg/0.5 mL (18 mg/3 mL) subcutane ous pen injector Inject 0.6 mg every day by subcutan eous route. 10/25 completed Not Available Not Available Not Available Narcan 4 mg/actuat ion nasal spray USE 1 SPRAY IN EACH NOSTRIL EVERY 2 MINUTES WHEN NEEDED TO REVERSE OPIOID OVERDOSE 10/10 completed Not Available Not Available Not Available bupropion HCl 150 mg tablet,12 hr sustained -release( smoking deterrent ) 03/31 completed Not Available Not Available Not Available Ozempic 1 mg/dose (2 mg/1.5 mL) subcutane ous pen injector Inject 1 mg every week by subcutan eous route. 04/26 completed Not Available Not Available Not Available Ozempic 0.25 mg or 0.5 mg (2 mg/1.5 mL) subcutane ous pen injector INJECT 0.25 MG UNDER THE SKIN ONCE A WEEK FOR TWO WEEKS, THEN INCREASE TO 0.5 MG ONCE A WEEK 2024 active Not Available Not Available Not Avai lable Aimovig Autoinjec tor 70 mg/mL subcutane ous auto-inje ctor Inject 70 mg every month by subcutan eous route. 12/21 completed Not Available Not Available Not Available OneTouch Delica Plus Lancet 33 gauge active Not Available Not Available Not Available Rybelsus 3 mg tablet Take 1 tablet every day by oral route. 05/22 completed Not Available Not Available Not Available OneTouch Verio Reflect Meter active Not Available Not Available Not Available Ozempic 1 mg/dose (4 mg/3 mL) subcutane ous pen injector INJECT 1MG UNDER THE SKIN EVERY WEEK 07/06 completed pt self dc Not Available Not Available Not Available Flowflex COVID-19 Antigen Home Test kit USE DIRECTED 10/10 completed Not Available Not Available Not Available Paxlovid 300 mg (150 mg x 2)-100 mg tablets in a dose pack TAKE 1 TABLET BY MOUTH TWICE A DAY FOR 5 DAYS 10/10 completed Not Available Not Available Not Available Ozempic 2 mg/dose (8 mg/3 mL) subcutane ous pen injector INJECT 2MG UNDER THE SKIN WEEKLY 09/01 completed Not Available Not Available Not Available Ozempic 0.25 mg or 0.5 mg (2 mg/3 mL) subcutane ous pen injector active Not Available Not Available Not Available Vitals Date Recorded Body height Body mass index (BMI) Body weight Body temperature Heart rate Systolic blood pressure Diastolic blood pressure Provider Name and Address Organization Details Last Updated DateTime 4 170.18 cm 29.1 kg/m2 44407.1 8 g 98.4 [degF] 81 /min 148 mm[Hg] 94 mm[Hg] Chelsea Santiago RN [place] [employer] [facility] 4 15:59:16 Date Recorded Body height Body mass index (BMI) Body weight Body temperature Heart rate Oxygen saturation Oxygen saturation in Arterial blood by Pulse oximetry Respiratory rate Systolic blood pressure Diastolic blood pressure Provider Name and Address Organization Details Last Updated DateTime 4 170.18 cm 28.2 kg/m2 46950.6 3 g 98.4 [degF] 87 /min 97 % 97 % 16 /min 122 mm[Hg] 86 mm[Hg] Kadi Mitch, RN [facility] 4 17:07:29 Date Recorded Body height Body mass index (BMI) Body weight Body temperature Heart rate Oxygen saturation Oxygen saturation in Arterial blood by Pulse oximetry Systolic blood pressure Diastolic blood pressure Provider Name and Address Organization Details Last Updated DateTime 4 170.18 cm 27.9 kg/m2 06657.4 4 g 98.5 [degF] 97 /min 97 % 97 % 130 mm[Hg] 86 mm[Hg] Kadi Meyer RN [facility] [employer] 4 11:08:58 Date Recorded Body height Body mass index (BMI) Body weight Body temperature Systolic blood pressure Diastolic blood pressure Provider Name and Address Organization Details Last Updated DateTime 5 170.18 cm 28.8 kg/m2 89341 g 96.2 [degF] 118 mm[Hg] 84 mm[Hg] Waleska Marquez CNA [facility] 5 10:35:56 Social History Question Answer Notes LastModified by Organizat ion Details LastModified Time Tobacco Smoking Status Current Every Day Smoker Not Available [facility] 07/24/2022 02:31:53 Do You Have An Advance Directive? No [id number].[id number] Information not available 07/24/2022 What Is Your Level Of Alcohol Consumption? None MIGRATION.43984 02894 Information not available 07/24/2022 Do You Wear A Helmet When Biking? No MIGRATION.65821 90840 Information not available 07/24/2022 What Is Your Level Of Caffeine Consumption? Moderate MIGRATION.20472 97736 Information not available 07/24/2022 In The 14 Days Before Symptom Onset, Have You Had Close Contact With A Laboratory-confi rmed COVID-19 While That Case Was Ill? No MIGRATION.20698 75116 Information not available 07/24/2022 In The 14 Days Before Symptom Onset, Have You Had Close Contact With A Person Who Is Under Investigation For COVID-19 While That Person Was Ill? No MIGRATION.05392 45041 Information not available 07/24/2022 What Type Of Diet Are You Following? REGULAR Low Carb MIGRATION.46172 53802 Information not available 07/24/2022 Which Illicit Or Recreational Drugs Have You Used? No MIGRATION.95730 32956 Information not available 07/24/2022 Do You Or Have You Ever Used E-cigarettes Or Vape? 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 Disable MIGRATION.14189 07565 Information not available 07/24/2022 Have There Been Any Changes To Your Family Or Social Situation? No MIGRATION.42244 42974 Information not available 07/24/2022 Are There Any Guns Present In Your Home? No MIGRATION.09232 17143 Information not available 07/24/2022 Do You Use Insect Repellent Routinely? No MIGRATION.31561 70975 Information not available 07/24/2022 Where Do You Live? [facility] MIGRATION.56535 73465 Information not available 07/24/2022 Advance Directive- Providers Has Reviewed Directive And Consents To Follow Them (insert Provider Name With Any Objectives In Notes Field) No MIGRATION.13967 90095 Information not available 07/24/2022 Are You Following A Low Salt Diet? No MIGRATION.22420 59396 Information not available 07/24/2022 Do You Have A Medical Power Of Garment Mender? No MIGRATION.17703 29303 Information not available 07/24/2022 What Was The Date Of Your Most Recent Tobacco Screening? 09/02/2022 [email or web address] Information not available 09/02/2022 Do You Have Any Pets? Yes MIGRATION.61616 09542 Information not available 07/24/2022 What Is Your Relationship Status? MIGRATION.15760 85321 Information not available 07/24/2022 Do You Use Your Seat Belt Or Car Seat Routinely? Yes MIGRATION.73886 79887 Information not available 07/24/2022 Do You Have Smoke And Carbon Monoxide Detectors In Your Home? Yes MIGRATION.04849 82340 Information not available 07/24/2022 At What Age Did You Start Smoking Tobacco? 14 MIGRATION.95237 65326 Information not available 07/24/2022 Are You Passively Exposed To Smoke? No MIGRATION.43030 47340 Information not available 07/24/2022 Do You Or Have You Ever Used Smokeless Tobacco? Never Used Smokeless Tobacco MIGRATION.85441 12246 Information not available 07/24/2022 Are There Any Smokers In Your House? Yes MIGRATION.97992 96102 Information not available 07/24/2022 How Much Tobacco Do You Smoke? 1 PPD MIGRATION.27406 92706 Information not available 07/24/2022 Do You Participate In Social Media? No MIGRATION.05153 17490 Information not available 07/24/2022 Do You Feel Stressed (tense, Restless, Nervous, Or Anxious, Or Unable To Sleep At Night)? [id number] MIGRATION.68768 03763 Information not available 07/24/2022 Do You Use Any Illicit Or Recreational Drugs? No [email or web address] Information not available 10/03/2022 Do You Use Sunscreen Routinely? Yes MIGRATION.06075 00940 Information not available 07/24/2022 How Many Years Have You Smoked Tobacco? 25 [email or web address] Information not available 11/07/2022 Have You Recently Traveled Abroad? No MIGRATION.14872 66585 Information not available 07/24/2022 Are You Currently In School? No MIGRATION.05552 07887 Information not available 07/24/2022 Do You Have Any Dietary Restrictions? Yes MIGRATION.19049 02627 Information not available 07/24/2022 Sex: Unknown Functional Status Question Answer Note LastModified by [employer] ion Details LastModified Time What is your exercise level? Occasional [id number] Information not available 07/24/2022 Mental Status None recorded. Family History Relationship Description Onset Age of this Age Resolved Age Notes LastModified by Organization Details LastModified Time Maternal Grandfather Diabetes mellitus MIGRATION.[id number] Not available 07/24/2022 02:40:11 Maternal Grandfather Essential hypertension Not available 03/2025 10:24:56 Maternal Grandfather Heart disease [email or web address] Not available 2022 10:19:17 Paternal Grandfather Diabetes mellitus MIGRATION.796 [id number] Not available 07/24/2022 02:40:11 Father Diabetes mellitus MIGRATION.574 [id number] Not available 07/24/2022 02:40:11 Mother Essential hypertension [email or web address] Not available 03/2025 10:24:56 Maternal Grandmother Malignant tumor of breast [email or web address] Not available 2024 10:24:56 Maternal Grandmother Family history of malignant neoplasm [email or web address] Not available 2024 10:24:56 Medical History Condition Response BLINDNESS N RHEUMATIC FEVER N BLADDER PROBLEMS N KIDNEY STONES N OTHER # 1 N POLIO N LUNG DISEASE/DISORDER N RADIATION / CHEMOTHERAPY N COPD N Other # 2 N BLOOD DISEASES N SURGERY N EAR OR HEARING PROBLEMS N MUMPS N BOWEL PROBLEMS N DEPRESSION (INCLUDING POST ) N FEMALE PROBLEMS / INFECTIONS N STROKE/TIA N THYROID DISEASE N ULCERS N BENIGN PROSTATIC HYPERPLASIA N MEASLES N CERVICALGIA N TB SKIN TEST N MYOCARDIAL INFARCTION N PARAPELGIA N OBESITY N GERD/NAUSEA N ANEURYSM N URINARY/BLADDER/KIDNEY PROBLEMS N INPATIENT PSYCH CARE N CORONARY ARTERY DISEASE (CAD) N MENIERE'S DISEASE N ADDICTION CONCERNS N ENDOMETRIOSIS N USE OF BLOOD THINNERS N SKIN PROBLEMS N EMPHYSEMA N GASTROINTESTINAL DISORDER N MUSCLE,JOINT OR BONE PROBLEMS N GASTROINTESTINAL BLEEDING N BLOOD CLOTS N ASTHMA N CATARACTS N USE OF NSAIDS Y ERECTILE DYSFUNCTION N GI PROBLEMS N CHF N Low Testosterone N NEUROPATHY N INFERTILITY N AIDS/HIV N FRACTURES N VISION/EYE PROBLEMS N LIVER DISEASE N MALE HYPOGONADISM N HYPERTENSION Y ANXIETY DISORDER N BLOOD TRANSFUSION N ANEMIA/BLOOD DISORDER N CHRONIC EAR INFECTIONS N BRONCHITIS N TUBERCULOSIS N GLAUCOMA N FOOT PROBLEM N DIVERTICULITIS N SLEEP APNEA N CHICKENPOX N ALLERGIES/HAYFEVER N INFECTIOUS DISEASE N PROSTATE N HEART ARRHYTHMIA N INSOMNIA N HIGH CHOLESTEROL / HYPERLIPIDEMIA N EYE PROBLEMS N HYPERTHYROIDISM N EATING DISORDER N NEUROLOGICAL PROBLEMS N EDEMA N CHRONIC PAIN SYNDROME N HYPOTHYROIDISM N CAROTID BLOCKAGE N CONSTIPATION N BACK / NECK PROBLEMS N HAVE YOU BEEN HOSPITALIZED OR SEEN IN [facility] IN THE PAST YEAR ? N ATHEROSCLEROSIS N BREAST PROBLEMS N DIALYSIS N ECZEMA N FIBROMYALGIA N OSTEOPOROSIS N ARTHRITIS N NO SIGNIFICANT PAST MEDICAL HISTORY N APPENDICITIS N DIABETES, TYPE Y BAD TEETH N HEARTBURN / REFLUX N ADD/ADHD N AUTISM SPECTRUM DISORDER (ASD) N HEPATITIS / LIVER DISEASE N PULMONARY DISEASE N GOUT N SLEEP DISORDER N ALZHEIMER'S DISEASE N PAIN N DEMENTIA N HERPES N SEIZURES/EPILEPSY N HEADACHES/MIGRAINES N VASCULAR DISEASE N PACEMAKER N DIZZINESS N HEART DISEASE/HEART PROBLEMS N KIDNEY DISEASE N SCARLET FEVER N MULTIPLE SCLEROSIS N DEVELOPMENTAL OR BEHAVIORAL DISORDERS N MENTAL DISORDER/ILLNESS N CANCER: SPECIFY N CARDIAC ARRHYTHMIA N PNEUMONIA N ANESTHESIA COMPLICATIONS N ATRIAL FIBRILLATION N PULMONARY EMBOLISM N AUTOIMMUNE DISEASE N Gynecological History Statement/Question Response How many live births 2 Current Control Method Hysterectom y Breast Problems no Obstetrics History GPAL:G 3 P 2 0 1 0 Type Value Full Term 2 Spontaneous 1 Total 3 Immunizations Vaccine Type Date Status Note Provider Nam e and Address Organization Details Recorded Time COVID-19, mRNA, LNP-S, PF, 100 mcg/0.5mL dose or 50 mcg/0.25mL dose 08/15/2020 completed Not Available [facility] 3 03:05:24 COVID-19, mRNA, LNP-S, PF, 30 mcg/0.3 mL dose 05/02/2021 completed Not Available [facility] 3 03:05:24 COVID-19, mRNA, LNP-S, PF, 100 mcg/0.5mL dose or 50 mcg/0.25mL dose 07/25/2020 completed Not Available [facility] 3 03:05:24 Influenza, split virus, quadrivalent, PF 02/22/2020 completed Not Available [facility] 3 03:05:24 Tdap 06/01/2019 completed Not Available [facility] 07/24/2022 03:05:25 Influenza, split virus, quadrivalent, PF 03/15/2019 completed Not Available [facility] 3 03:05:25 Influenza, split virus, quadrivalent, PF 02/25/2018 completed Not Available [facility] 3 03:05:25 Influenza, split virus, quadrivalent, PF 02/21/2022 completed Not Available [facility] 3 03:05:25 Influenza, split virus, quadrivalent, PF 02/06/2021 completed Not Available [facility] 3 03:05:25 Influenza, split virus, quadrivalent, PF 05/27/2017 completed Not Available [facility] 3 03:05:25 Past Encounters Encounter ID Performer Location Encounter Start Date Encounter Closed Date Diagnosis/Indication Diagnosis SNOMED-CT Code Diagnosis ICD10 Code Diagnosis Note [id number] [facility] [place] [address] [facility] [address] [facility] [place] [address] 08/10/2020 00:00:00 08/22/2020 10:48:30 [id number] [facility] [place] [address] [facility] [address] [place] [address] 11/07/2020 00:00:00 11/07/2020 08:37:16 [id number] [facility] [address] [place] [address] 11/23/2020 00:00:00 11/23/2020 11:50:00 [id number] [facility] [place] [address] [place] [address] 12/05/2020 00:00:00 12/05/2020 08:31:58 [id number] [facility] [address] [place] [address] 01/02/2021 00:00:00 01/02/2021 14:47:39 [id number] [facility] [place] [address] [place] [address] 01/02/2021 00:00:00 01/02/2021 09:06:32 [id number] [facility] [place] [address] [place] [address] 02/06/2021 00:00:00 02/06/2021 08:25:13 [id number] [facility] [place] [address] [place] [address] 03/15/2021 00:00:00 03/15/2021 10:14:16 [id number] [facility] [place] [address] [place] [address] 04/26/2021 00:00:00 05/04/2021 08:11:18 [id number] [facility] [place] [address] [place] [address] 05/29/2021 00:00:00 05/29/2021 09:18:56 [id number] [facility] [place] [address] [place] [address] 08/28/2021 00:00:00 08/28/2021 08:55:11 [id number] [facility] [address] [place] [address] 09/06/2021 00:00:00 09/06/2021 15:44:49 [id number] [facility] [place] [address] [place] [address] 09/25/2021 00:00:00 10/19/2021 12:33:55 [id number] [facility] [address] [place] [address] 11/05/2021 00:00:00 11/06/2021 09:50:15 [id number] [facility] [address] [place] [address] 11/12/2021 00:00:00 11/12/2021 13:27:04 [id number] [facility] [address] [place] [address] 11/29/2021 00:00:00 11/29/2021 10:16:04 [id number] [facility] [address] [place] [address] 12/13/2021 00:00:00 12/13/2021 13:09:18 [id number] [facility] [place] [address] [place] [address] 12/25/2021 00:00:00 12/25/2021 08:46:26 [id number] [facility] [place] [address] [place] [address] 02/04/2022 00:00:00 02/04/2022 10:05:22 [id number] [facility] [place] [address] [place] [address] 02/21/2022 00:00:00 02/21/2022 13:53:14 [id number] [facility] [place] [address] [place] [address] 02/26/2022 00:00:00 02/26/2022 13:59:32 [id number] [facility] [place] [address] [place] [address] 04/30/2022 00:00:00 04/30/2022 10:05:48 [id number] [facility] Primary Care [place] [address] [facility] [address] [place] [address] 06/03/2022 00:00:00 06/03/2022 18:32:03 [id number] Tabitha Felix MD [facility] [address] [place] [address] [address] [place] [address] 09/02/2022 11:10:20 09/02/2022 12:23:32 Adult health examination 592887300 Z00.00 mammogram and US done /p hysterecto my, no paps neededcolo n cancer screen age 44recommen d smoking cessationy early flu vaccinecov id booster recommende d Screening for disorder 187400492 Z13.9 Degenerati on of lumbar intervertebral disc 27596477 M51.36 sees neurosurge ry on Fri Menopausal symptom 94893 002 N95.1 Hyperlipidemia 35796023 E78.5 Z79.899 Vitamin D deficiency 347 37330 E55.9 Diabetes mellitus 099675 09 E11.9 increase ozempic 1 mg Essential hypertension 73633744 I10 [id number] Tabitha Felix MD [facility] [address] [place] [address] [address] [place] [address] 10/03/2022 12:39:08 10/03/2022 13:19:17 Increased liver function 60124452 R94.5 repeat lfts [id number] PRITI Magaña [facility] [address] [place] [address] 10/10/2022 10:15:44 10/10/2022 11:18:10 Pain of right knee joint 8070694058 67258 M25.561 Osteoarthr itis of right knee joint 8756778584 27972 M17.11 Derangemen t of medial meniscus 092611724 M23.331 [id number] Avelino Yin MD [facility] [address] [place] [address] 10/24/2022 10:09:54 10/24/2022 11:24:10 Derangement of medial meniscus 674039588 M23.331 Pain of ri ght knee joint 8217311515 81022 M25.561 Osteoarthr itis of right knee joint 4762557498 31142 M17.11 Tear of me dial meniscus of knee 852515067 S83.241A Pre-surger y evaluation 638291134 Z01.818 [id number] Avelino Yin MD [facility] [address] [place] [address] 11/07/2022 10:00:11 11/07/2022 11:14:42 Derangement of medial meniscus 322712283 M23.331 Pain of ri ght knee joint 2317447036 90768 M25.561 Osteoarthr itis of right knee joint 9981421331 50960 M17.11 Tear of me dial meniscus of knee 617035149 S83.241A Postoperative visit 1836 66528 Z09 [id number] Tabitha Felix MD [facility] Primary Care [facility] [address] [facility] [address] [place] [address] 01/07/2023 08:00:56 01/07/2023 08:42:49 Diabetes mellitus 86595818 E11.9 stableozem pic 1 mg sc qweekcheck labs Skin lesion 67610850 L98 .9 derm referral Essential hypertension 27144368 I10 stablechec k labs Degenerati on of lumbar intervertebral disc 84265963 M51.36 stablePt understand s this medication has risk for abuse/depe ndence and agrees to take it only as prescribed and to guard from loss/theft [place] prescripti on monitoring website reviewed [id number] Tabitha Felix MD [facility] Primary Care [facility] [address] [facility] [address] [facility] [place] [address] 07/08/2023 08:23:23 07/08/2023 08:44:48 Diabetes mellitus 87180671 E11.9 stableozem pic 1 mg sc qweekcheck labs update 07/08/23: increase ozempic 2 mg weekly to improve weight losscheck labs Restless legs 36289225 G 25.81 R53.83 R63.5 D64.9 continue pregabalin 150 mg bidcheck labsconsid er ropinirole if labs are normal Hyperlipidemia 36804576 E78.5 Z79.411 [id number] Tabitha Felix MD [facility] Primary Care [facility] [address] [place] [address] 10/07/2023 08:14:01 10/07/2023 08:34:38 Renewal of prescription 915455688 Z76.0 Degenerati on of intervertebral disc 50064937 M51.9 stable Diabetes mellitus 494332 09 E11.9 stableozem pic 1 mg sc qweekcheck labs update 07/08/23: increase ozempic 2 mg weekly to improve weight los[place]ck labs update 10/07/23: did not tolerate ozempic 2 mg, ok to continue ozempic 1 mg sc [id number] 5.8 Hyperlipidemia 96937010 E78.5 Z79.899 monitor triglyceri shawanda Hypokalemia 66701794 E87 .6 stablerefi ll given [id number] BEN Forde [facility] Primary Care [facility] [address] [place] [address] 11/11/2023 14:36:02 11/11/2023 15:27:43 [id number] BEN Forde [facility] Primary Care [facility] [address] [facility] [facility] [place] [address] 11/18/2023 15:51:49 11/18/2023 16:17:11 Benign intracranial hypertension 13955802 G93.2 appt with neuro the 19 of January Mammography abnormal 168 539624 R92.8 Degenerati on of intervertebral disc 06799040 M51.9 [id number] PRITI Rodríguez [facility] Family Practice [facility] [address] [place] [address] 12/22/2023 16:39:37 03/05/2024 13:07:29 Benign intracranial hypertension 70259951 G93.2 Type 2 amaya betes mellitus without complication 426597315 E11.9 Degenerati on of lumbar intervertebral disc 56723924 M51.36 Degenerati on of intervertebral disc 58447247 M51.9 Hypokalemia 24497856 E87 .6 Screening for malignant neoplasm of colon 561906418 Z12.11 Adult heal th examination 984027664 Z00.00 Essential hypertension 86628320 I10 Tear of me dial meniscus of knee 208114735 S83.241A Vitamin D deficiency 347 99154 E55.9 [id number] PRITI Rodríguez [facility] [address] [place] [address] 03/30/2024 10:59:06 03/30/2024 11:29:01 Hypokalemia 82259339 E87.6 Screening for malignant neoplasm of colon 228423763 Z12.11 Benign int racranial hypertension 61463199 G93.2 Degenerati on of lumbar intervertebral disc 64496184 M51.361 Essential hypertension 90293579 I10 Hyperlipidemia 36611822 E78.5 Osteoarthr itis of right knee joint 8530047579 96799 M17.11 Tear of me dial meniscus of knee 584755326 S83.241A Type 2 amaya betes mellitus without complication 323020591 E11.9 Vitamin D deficiency 347 90398 E55.9 [id number] PRITI Rodríguez [address] [address] 07/02/2024 08:48:32 07/02/2024 10:47:49 [id number] PRITI Rodríguez [address] [address] 07/06/2024 10:24:20 07/06/2024 10:59:39 Depressive disorder 42583834 F32.A Renewal of prescription 637396674 Z76.0 Degenerati on of intervertebral disc 19779761 M51.9 Anxiety 03680083 F41.9 Hyperlipidemia 29248436 E78.5 Health Concerns Section Related Observation LastModified by Organization Detai ls LastModified Time None Recorded Concern Status LastModified by Organization Details LastModified Time None Recorded Advance Directives Directive N: Payers Encounter Date Sequence Insurance Name Policy Number Policy Garcia Covered Member ID Garcia Member ID Guarantor Name 11/18/2023 1 [place] Yissel Sanchez Frauenfelder [id number] 7 [id number] 7 Yissel Sanchez Frauenfelder 11/18/2023 2 [place] OR MEDICARE REPLACEMENT PRIMARY) Yissel Sanchez Frauenfelder [id number] Yissel Sanchez Frauenfelder 12/22/2023 1 [place] Yissel Sanchez Frauenfelder [id number] 7 [id number] 7 Yissel Sanchez Frauenfelder 12/22/2023 2 [place] REPLACEMENT PR[place]) Yissel Sanchez Frauenfelder [id number] Yissel Sanchez Frauenfelder 03/30/2024 1 [place] Yissel Sanchez Frauenfelder [id number] 7 [id number] 7 Yissel Sanchez Frauenfelder 03/30/2024 2 [place] REPLACEMENT PRIMARY) Yissel Sanchez Frauenfelder [id number] Yissel Sanchez Frauenfelder 07/02/2024 1 [place] Yissel Sanchez Frauenfelder [id number] 7 [id number] 7 Yissel Sanchez Frauenfelder 07/02/2024 2 [place] OR [place]IC[place] REPLACEMENT PRIMARY) Yissel Sanchez Frauenfelder [id number] Yissel Sanchez Frauenfelder 07/06/2024 1 [place] Yissel Sanchez Frauenfelder [id number] 7 [id number] 7 Yissel Sanchez Frauenfelder 07/06/2024 2 [place] OR [place]IC[place] REPLACEMENT PRIMARY) Yissel Sanchez Frauenfelder [id number] Yissel L Frauenfelder Notes Date Note Type Note Provider Name and Address Organization Details Recorded Time 11/18/2023 text/html pt is here for f/u Antonio Amy sharma, [employer]ARING [employer] [address], [place], [address], [employer] 11/18/2023 16:21:06 12/22/2023 text/html 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 her brother lung cancer , mouth cancer .. can't sleep , has colonoscopy scheduled , parents had polyps . PRITI Rodríguez [address], [place], [address], [facility] 07/10/2024 11:53:34 OBGyn Episode No OBEpisode recorded.
--- OUTSIDE RECORDS SUMMARY | 2024-08-10 00:19 | XMS_ITS | Encounter Summary ---
Author Organization [facility] Healthcare Address [address] [place] [address] Care Team Providers Care Grades 9 Thru 12 Visiting Teacher Name Role Phone Tabitha Felix MD Primary Care Provider + Reason for Visit * Diagnostic Imaging (Routine) - Closed Specialty Diagnoses / Procedures Referred By Yamel tenorio Referred To Contact Procedures Breast Imaging Screening Outside Reference Aft, Earnestine Gonzalez MD PhD [address] [place] [address] Phone: tel: fax: Referral ID Status Reason Start Date Expiration Date Visits Re quested Visits Authorized [id number] Closed 07/12/2021 08/11/2022 1 1 Encounter Details Date Type Department Care Team (Late st Contact Info) Description 04/14/2019 Hospital Encounter [facility] [address] [place] [address] [id number] Social History Tobacco Use Types Packs/Day Years [...] on file Legal Sex Female 10:19 AM 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 There will be no report generated by a [facility] Radiologist. Narrative [facility] - 07/12/2021 4:25 PM LIQUEFIED PETROLEUM GASFITTER EXAMINATION: Images For Reference Purposes Only us Earnestine Morrow MD PhD IMG MAMMO PROCEDURES Final Result [facility] documented in this encounter Visit Diagnoses Not on filedocumented in this encounter Care Teams Grades 9 Thru 12 Visiting Teacher Relationship Specialty Start Date End Date Tabitha Felix MD PCP - General 09/30/16 documented as of this encounter
--- NOTE | 2024-08-10 08:55 | WPDANESEPPF ---
Anes - Initial Pre Proc Eval Procedure: Operation Date: 08/10/24 10:00 Proposed Procedures p Screening Colonoscopy - Nickolas Cherry MD Date/Time: 08/10/24 08:55 Surgeon: Nickolas Cherry MD Pre Op Diagnosis: screening colon Patient Data Age: 44 Gender: F Height: 1.7 m Weight: 81.8 kg Allergies Allergy/AdvReac Type Severity Reaction Status Date / Time Sulfa (Sulfonamide Allergy Severe RASH Verified 08/10/24 08:55 Antibiotics) phenol Allergy Unknown LOWER LIP Verified 08/10/24 08:55 SWELLED SEVERELY CAMPHOR Allergy Unknown LOWER LIP Uncoded 08/10/24 08:55 SWELLED SEVERELY Home Medications ?Medication ?Instructions ?Recorded ?Confirmed ?Type albuterol sulfate 90 mcg/actuation 1 inh inhalation QID PRN Pain 05/01/19 07/29/24 History aerosol inhaler cyclobenzaprine 10 mg tablet 10 mg PO TID 05/01/19 07/29/24 History duloxetine 30 mg capsule,delayed 30 mg PO DAILY 05/01/19 07/29/24 History release (Cymbalta) atorvastatin 10 mg tablet 10 mg PO DAILY 06/30/20 07/29/24 History famotidine 20 mg tablet 20 mg PO DAILY 06/30/20 07/29/24 History hydrochlorothiazide 25 mg tablet 25 mg PO DAILY 06/30/20 07/29/24 History ibuprofen 800 mg tablet 800 mg PO Q6H 06/30/20 07/29/24 History metformin 1,000 mg tablet,extended 1,000 mg PO DAILY 06/30/20 07/29/24 History release 24hr (osmotic) acetazolamide 500 mg 500 mg PO BID 07/29/24 07/29/24 History capsule,extended release fenofibrate See Rx Instructions .Route DAILY 07/29/24 07/29/24 History potassium chloride 20 mEq 40 meq PO DAILY 07/29/24 07/29/24 History tablet,extended release pregabalin 150 mg capsule 150 mg PO BID 07/29/24 07/29/24 History sumatriptan succinate 100 mg tablet 100 mg PO DAILY PRN headache 07/29/24 07/29/24 History Patient hx anesthesia problems: none Family hx anesthesia problems: none Results Review: All pre-operative results and documents have been reviewed as part of the pre-operative evaluation. [facility] Past Medical History Medical History Opioid use Diabetes Chronic back pain Ovarian cyst Endometriosis Surgical History Surgical History History of orthopedic surgery Cyst removed back of right knee 2010 H/O dilation and curettage History of tubal ligation Family History Family History Other Hypertension Respiratory disease Social History Social History Smoking packs per day: 1 Smoking cigarettes per day: 20.0 Years smoked: 30 Smoking pack-years: 30.00 Smoking status: Current every day smoker Tobacco type: cigarettes Alcohol intake: never Substance use: current Substance use type: marijuana Other substance usage details: ingests marijuana about once every 3 months Living arrangements: with family Gender identity (if verbalized by the patient): Female Spiritual care concerns: No Anes - Eval Final PreProcedure Day of Procedure 08/10/24 08:55 Patient weight: overweight Heart: regular rate and rhythm Lungs: decreased breath sounds Airway: Mallampati scale class II Neurological: alert and oriented Last oral intake: >/= 8 hours ASA classification: III Emergent: no Anesthetic plan: proceed Anesthesia type and monitoring: general GIVS and standard monitoring Results Review: All pre-operative results and documents have been reviewed as part of the pre-operative evaluation. Informed Consent: The patient's anesthetic plan and its attendant risks and benefits were discussed with the patient/family/POA. Questions were solicited and answers provided to the satisfaction of the patient/family/POA.
[2024-08-10 08:56] LABS: Glucose Point of Care 95 mg/dl (65-105)
[2024-08-10 08:58] VITALS: BP 112/67; PULSE 76; RESP 20; TEMP 35.9; O2SAT 99
[2024-08-10] MEDS: LACTATED RINGERS 1,000 ML 150 ML IV CONT (09:10)
--- NOTE | 2024-08-10 09:12 | PM.HPGS ---
History of Present Illness History of Present Illness Consent: Risks, benefits, and alternatives have been discussed and questions answered. Patient agrees to proceed with procedure. Chief complaint: screening colon Narrative: Yissel Robertson is a 44 year old female here for first screening colonoscopy Review of Systems Review of Systems: All systems reviewed & are unremarkable except as noted in HPI and below PMFSH Past Medical History Medical History (Updated 08/10/24 @ 09:14 by Nickolas Cherry MD) Colon cancer screening Opioid use Diabetes Chronic back pain Ovarian cyst Endometriosis Surgical History Surgical History History of orthopedic surgery Cyst removed back of right knee 2010 H/O dilation and curettage History of tubal ligation Family History Family History Other Hypertension Respiratory disease Social History Social History Smoking packs per day: 1 Smoking cigarettes per day: 20.0 Years smoked: 30 Smoking pack-years: 30.00 Smoking status: Current every day smoker Tobacco type: cigarettes Alcohol intake: never Substance use: current Substance use type: marijuana Other substance usage details: ingests marijuana about once every 3 months Living arrangements: with family Gender identity (if verbalized by the patient): Female Spiritual care concerns: No Meds Home Medications and Allergies Home Medications ?Medication ?Instructions ?Recorded ?Confirmed ?Type albuterol sulfate 90 mcg/actuation 1 inh inhalation QID PRN Pain 05/01/19 08/10/24 History aerosol inhaler cyclobenzaprine 10 mg tablet 10 mg PO TID 05/01/19 08/10/24 History duloxetine 30 mg capsule,delayed 30 mg PO DAILY 05/01/19 08/10/24 History release (Cymbalta) atorvastatin 10 mg tablet 10 mg PO DAILY 06/30/20 08/10/24 History famotidine 20 mg tablet 20 mg PO DAILY 06/30/20 08/10/24 History hydrochlorothiazide 25 mg tablet 25 mg PO DAILY 06/30/20 08/10/24 History ibuprofen 800 mg tablet 800 mg PO Q6H 06/30/20 08/10/24 History metformin 1,000 mg tablet,extended 1,000 mg PO DAILY 06/30/20 08/10/24 History release 24hr (osmotic) acetazolamide 500 mg 500 mg PO BID 07/29/24 08/10/24 History capsule,extended release fenofibrate See Rx Instructions .Route DAILY 07/29/24 08/10/24 History potassium chloride 20 mEq 40 meq PO DAILY 07/29/24 08/10/24 History tablet,extended release pregabalin 150 mg capsule 150 mg PO BID 07/29/24 08/10/24 History sumatriptan succinate 100 mg tablet 100 mg PO DAILY PRN headache 07/29/24 07/29/24 History hydrocodone 10 mg-acetaminophen tablet 08/10/24 History 325 mg tablet Allergies Allergy/AdvReac Type Severity Reaction Status Date / Time benzocaine (From Allergy Severe LOWER LIP Verified 08/10/24 08:57 Campho-Phenique) SWELLED SEVERELY camphor (From Allergy Severe LOWER LIP Verified 08/10/24 08:57 Campho-Phenique) SWELLED SEVERELY menthol (From Allergy Severe LOWER LIP Verified 08/10/24 08:57 Campho-Phenique) SWELLED SEVERELY petrolatum,white (From Allergy Severe LOWER LIP Verified 08/10/24 08:57 Campho-Phenique) SWELLED SEVERELY phenol (From Campho-Phenique) Allergy Severe LOWER LIP Verified 08/10/24 08:57 SWELLED SEVERELY phenol liquid (From Allergy Severe LOWER LIP Verified 08/10/24 08:57 Campho-Phenique) SWELLED SEVERELY pramoxine (From Allergy Severe LOWER LIP Verified 08/10/24 08:57 Campho-Phenique) SWELLED SEVERELY Sulfa (Sulfonamide Allergy Severe RASH Verified 08/10/24 08:55 Antibiotics) Vital Signs Vital Signs - 24 hr 08/10/24 08:58 Temperature 96.6 F L Pulse Rate 76 Respiratory Rate 20 Blood Pressure 112/67 Pulse Oximetry 99 Oxygen Delivery Room Air Exam Const: General: comfortable and no acute distress HENMT: Face/Nose/Sinus: Normal nares present Eyes: General: appearance normal, both eyes and all related structures Neck: Neck: no JVD Resp: Auscultation: clear to auscultation bilaterally Cardio: Rate: regular rate Rhythm: regular rhythm GI: Inspection: non-distended GI Palp: Yes Soft to palpation Skin: General skin exam: normal color Neuro: General: gait normal Speech: normal speech Extrem: General: normal to inspection Psych: Mental Status: mental status grossly normal Assessment and Plan Assessment and plan (1) Colon cancer screening: Code(s): Z12.11 - Encounter for screening for malignant neoplasm of colon Status: Acute Assessment and Plan: colonoscopy
[2024-08-10 09:32] VITALS: BP 103/59; PULSE 70; RESP 15; O2SAT 99
[2024-08-10 09:42] VITALS: BP 101/63; PULSE 72; RESP 16; O2SAT 100
[2024-08-10 09:52] VITALS: BP 109/64; PULSE 70; RESP 19; O2SAT 100
== END 2024-08-10 09:58 | disposition home or self-care (01) ==
PROVIDERS: PCP Physician Assistant; Referring Provider Physician Assistant; Visit Provider Internal Medicine Gastroenterology
PROC: 0DJD8ZZ Inspection of Lower Intestinal Tract, Via Natural or Artificial Opening Endoscopic (ICD-10-PCS; CPT 45378; principal; 2024-08-10 10:00)
DX: Z12.11 Encounter for screening for malignant neoplasm of colon (principal); D12.4 Benign neoplasm of descending colon; D12.5 Benign neoplasm of sigmoid colon; E11.9 Type 2 diabetes mellitus without complications; F17.210 Nicotine dependence, cigarettes, uncomplicated; F12.90 Cannabis use, unspecified, uncomplicated
CPT/HCPCS: 45385; 82948; 88305; J2704; J7120

== ENCOUNTER 2024-08-11 10:00 | Emergency (ER) | payer MEDICARE, MEDICAID, SELFPAY ==
--- NOTE | ~2024-08-11 | CT_ITS ---
CT abdomen pelvis w con Ordering provider: Betzy Penn MD History: 44 years Female with . BRBPR/bloody stools after colonoscopy yest . Comparison: None. Technique: CT abdomen and pelvis with IV and without oral contrast. Automated exposure control and it erative reconstruction technique were employed. The dose-length product was 604.97 mGy-cm. 100 mL Omn ipaque 350 was given IV. Findings: VISUALIZED LOWER CHEST: Dependent atelectatic changes in the lower lobes posteriorly. UPPER ABDOMINAL ORGANS: Liver: Hepatomegaly. Fat infiltration. Hypodensity with peripheral enhancement is seen in the segment #5 measuring 2.7 cm suggestive of hemangioma. Another small hypodensity measuring 1.3 cm is seen in segment #5 and also in the left lobe of the liver measuring 1.3 cm. Another hypodensity is seen in th e dome of the liver segment #8 measuring 5 mm. Follow-up advised. Gallbladder: Normal. Spleen: Normal. Stomach/duodenum: Normal. Pancreas: Normal. Adrenals: Right adrenal adenoma is seen measuring 1.6 cm. MRI is advised. Kidneys: Left kidney lower pole cyst measuring 1.8 cm is seen. PELVIC ORGANS: The bladder is normal. BOWEL AND MESENTERY: Colon: No evidence of diverticulitis. Appendix is not demonstrated. Small Bowel: Normal. No obstruction. Peritoneum/mesentery: No free air or free fluid. No mesenteric lymphadenopathy. RETROPERITONEUM: Normal aorta. No retroperitoneal lymphadenopathy. MUSCULOSKELETAL: Superficial soft tissues: The superficial soft tissues are normal. Bones: Normal 0spine. IMPRESSION: 1. No evidence of appendicitis, diverticulitis or intestinal obstruction. 2. Multiple small hypodensities in the liver. Follow-up advised. 3. Hepatomegaly with fat infiltration. 4. Hemangioma of the liver. 5. Right adrenal adenoma measuring 1.6 cm. MRI is advised 6. Subsegmental Atelectatic changes in the lung bases Reviewed, dictated and finalized at location A.
[2024-08-11 10:06] VITALS: BP 125/62; PULSE 80; RESP 16; TEMP 36.1; O2SAT 100
--- OUTSIDE RECORDS SUMMARY | 2024-08-11 11:16 | XMS_ITS | Clinical Summary ---
Author Organization [facility] Address [address] [place] [address] Care Team Providers Care [employer] Web Application Developer Name Role Phone Tabitha Felix MD Primary [...] test Assessment & Plan (04/08/2024 5:14 PM OFFICE SERVICES CLERK): - Patient feels that her symptoms are [...] CNVM. Assessment & Plan (04/08/2024 5:13 PM OFFICE SERVICES CLERK): - Today with continued resolution of subretinal [...] for DFE OU, fundus photos OU (at [facility]), OCT mac OU, possible antiVEGF OS Assessment [...] and intravenous fluorescein angiography (IVFA) at the [facility] (testing visit) in 1 week --[facility] retina in 2 weeks for interpretation of [...] Knee Surgery - (Added by TW Conv) UT TUBOTUBAL ANASTATOMOSIS Oviductal Surgery Tubotubal Anastomosis - [...] on file Legal Sex Female 10:19 AM OFFICE SERVICES CLERK Gender Identity Not on file Sexual Orientation [...] agrees with it. Electronically signed by: Lian wOens M.D. us Antonio Troncoso NP IMG MAMMO [...] LAB BLOOD ORDERABLES Final R esult [facility] [address] [place] [address] * (ABNORMAL) Lipid panel (02/21/2022) [...] Recently Relevant to Health Maintenance Insurance MEDICARE [facility] MEDICARE [employer] [facility] MEDICARE Care Teams Grails Web Application Developer Relationship Specialty Start Date End Date Tabitha Felix MD PCP - General 09/30/16
--- OUTSIDE RECORDS SUMMARY | 2024-08-11 11:16 | XMS_ITS | Data Portability ---
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 Plan of Treatment Reminders Order Date Submit Date Provider Last Modified By Organization Details Last Modified Time Details Appointments Follow Up 30 2024 08:30A PRITI Blackwell Not available Not available Not available Lab glycohemo globin, total, blood [address] (Lab), [address] [place], [address], 12/29/2023 08:35:16 CMP, serum or plasma [address] (Lab), [address] [place], [address], 12/29/2023 08:35:17 Referral gastroent erologist referral - Please call patient to schedule an appointme nt. Thank you. 2023 024 [email or web address] Jignesh Castelan MD, [address], [address], [place], [address], 06/17/2024 09:23:43 gastroent erologist referral - Please call patient to schedule an appointme nt. Thank you. 2023 024 [email or web address] Tuyet Candelario MD, [address] [facility], [address], [address], 01/24/2024 07:52:44 pain managemen t referral - Please call patient to schedule an appointme nt. Thank you. 2023 024 [email or web address] Karen Elias MD, [address] [place], [address], 12/17/2023 08:59:41 Procedures None recorded. Surgeries None recorded. Imaging MAMMO, diagnosti c, digital, unilatera l 2023 024 56 Not available 12/02/2023 08:58:16 US, breast, unilatera l 2023 024 [email or web address] 56 Not available 11/26/2023 09:51:13 Medication Orders hydrocodo ne 10 mg-acetam inophen 325 mg tablet 2024 025 [facility] #09045, [address], [id number], 07/06/2024 10:49:24 fenofibra te micronize d 134 mg capsule 2024 025 [facility] #25509, [address], [id number], 07/06/2024 10:54:08 hydroxyzi ne HCl 10 mg tablet 2024 025 [facility] #85605, [address], [id number], 07/06/2024 10:50:24 hydrochlo rothiazid e 25 mg tablet 2024 025 [facility] #55916, [address], [id number], 07/06/2024 10:49:19 escitalop carole 10 mg tablet 2024 025 [facility] #56935, [address] [facility] [address] [facility], [place], [place], [id number], 07/06/2024 10:47:47 escitalop carole 20 mg tablet 2024 025 [facility] #35490, [address] [address], [place], [place], [id number], 07/06/2024 10:47:46 potassium chloride ER 20 mEq tablet,ex tended release 2023 024 [facility] #95569, [address], [id number], 03/30/2024 11:17:10 hydrocodo ne 10 mg-acetam inophen 325 mg tablet 2023 024 [facility] #10146, [address], [id number], 12/22/2023 17:22:52 ketorolac 60 mg/2 mL intramusc ular solution 2023 024 [email or web address] Not available 12/22/2023 17:39:58 Depo-Medr ol 80 mg/mL suspensio n for injection 2023 024 [email or web address] Not available 12/22/2023 17:41:46 prednison e 20 mg tablet 2023 024 [email or web address] [facility] #91512, [address], [id number], 03/30/2024 11:05:33 Klor-Con M20 mEq tablet,ex tended release 2023 024 [id number] [address] [facility] #19176, [address], [id number], 07/29/2024 19:06:19 hydrocodo ne 10 mg-acetam inophen 325 mg tablet 2023 024 [facility] #17899, [address], [place], [place], [id number], 11/18/2023 16:16:43 Patient TargetsNo targets recorded. Patient Instructions Encounter Date Encounter Id Patient Instructions Last Modified By Organization Details Last Modified Time 07/06/2024 [id number] she feels she is a mess. Counseled . no si/hi. 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 reviewed labs , gave copy . has a fatty liver , liver enzymes up a little . discuss with her GI doc . avoid sugars a1c is 6.1..... was 5.9 last time [email or web address] Not available 07/06/2024 11:04:12 Reason for Referral Pain Management Referral for Degeneration of intervertebral disc lumbar DDD Please call patient to schedule an appointment. Thank you. Referring Physician: Antonio Troncoso [facility], Encounter Date: 11/18/2023 Mems Engineer Referral for Screening for malignant neoplasm of colon Please call patient to schedule an appointment. Thank you. Referring Physician: Jd Yin Family [facility], Encounter Date: 12/22/2023 Mems Engineer Referral for Screening for malignant neoplasm of colon Needs a screening colonoscopy . Please call patient to schedule an appointment. Thank you. Referring Physician: Jd Yin [facility] Medicine, Encounter Date: 03/30/2024 Results Created Date Observation Date Name Description Value Unit Range Abnormal Flag Note LastModifiedBy Organization Detail LastModifiedTime 12/25/1912/25/2023 imagi ng/di agnos tic resul t No observ ation record ed. KATH[facility]EN [facility] [address] [place], [address], 01/19/2024 12:40:19 12/25/19 24 12/25/2023 MAMMO , diagn ostic , digit al, bilat eral No observ ation record ed. [email or web address] [facility] [address] [place], [address], 01/05/2024 23:41:44 12/25/19 24 12/25/2023 MAMMO , diagn ostic , digit al, bilat eral No observ ation record ed. [email or web address] [facility] (Cam) [address] [facility] [address], [place], [address], 01/05/2024 23:41:45 Result Notes None recorded. Problems Name Problem SNOMED Code Status Onset Date Resolution Date Notes Provider Name and Address Organization Details Recorded Time Exacerba tion of backache 816152204 Active 2016 Not Available [facility] 3 02:51:41 Abnormal weight gain 440869425 Active Not Available [facility] 3 02:51:41 Postoper ative visit 688146657 Active 2021 Not Available [facility] 3 02:51:41 Dehiscen ce of surgical wound 95233383 Active 2021 Not Available [facility] 3 02:51:41 Pain in right foot 89129641430 9107 Active 2021 Not Available [facility] 3 02:51:41 Mild dietary indigest ion 927325260 Active Not Available [facility] 3 02:51:41 Bunion 537554495 Active 2021 Not Available [facility] 3 02:51:41 Bunion 974876631 Active Not Available [facility] 3 02:51:42 Hyperlip idemia 60826468 Active 2019 Not Available [facility] 3 02:51:42 [facility] l hyperten tad 20495016 Active 2019 Not Available [facility] 3 02:51:42 Cigarett e smoker 12042813 Active 2021 Not Available [facility] 3 02:51:42 Hypercal cemia 47132778 Active Not Available [facility] 3 02:51:42 Torticol lis 67975590 Active Not Available [facility] 3 02:51:42 Prediabe kiana 163712720 Completed 201902/06/2021 Not Available [facility] 3 02:51:42 Diabetes mellitus 10691345 Active 2019 Not Available [facility] 3 02:51:42 Degenera tion of interver tebral disc 73810212 Active 2022 Tabitha Felix MD [address], [place], [address] , [employer] [facility] 3 10:26:21 Ingrowin g toenail 008596392 Active 2022 Tabitha Felix MD [address], [place], [address] , [employer] [facility] 3 07:42:59 Degenera tion of lumbar interver tebral disc 10462692 Active 2022 Tabitha Felix MD [address], [address], [place], [address] , [employer] [facility] 3 11:30:16 Menopaus al symptom 50963218 Active 2022 Tabitha Felix MD [address], [place], [address] , [employer] [facility] 3 11:36:45 Increase d liver function 54673160 Active 2022 Tabitha Felix MD [address], [address], [place], [address] , [employer] [facility] 3 11:37:03 Vitamin D deficien cy 28301785 Active 2022 Tabitha Felix MD [address], [address], [place], [address] , [employer] [facility] 3 11:37:35 Herpes labialis 7620102 Active 2022 MARIA ELENA Mckeon [address], [address], [place], [address] , [employer] [facility] [employer] [facility] 3 14:04:26 Pain of right knee joint 84377120926 4100 Active 2022 Kadi Dengfrances, ATC L null, [place] [facility] [place] [facility] 3 10:35:05 Derangem ent of medial meniscus 622427102 Active 2022 PRITI Magaña [address], [place], [address] , [place] [facility] [place] [facility] 3 11:13:19 Derangem ent of medial meniscus 951345695 Active 2022 PRITI Magaña [address], [address], [place], [address] , [place] [facility] [place] [facility] 3 11:14:09 Osteoart hritis of right knee joint 15882753527 9100 Active 2022 PRITI Magaña [address], [address], [place], [address] , [place] [facility] [place] [facility] 3 11:14:09 Tear of medial meniscus of knee 922066517 Active 2022 Keturah Ean null, [place] [facility] [place] [facility] 3 10:32:12 Tear of medial meniscus of knee 042147294 Active 2022 Keturah Ean null, [place] [facility] [place] [facility] 3 10:32:24 Skin lesion 35389820 Active 2022 Tabitha Felix MD [address], [place], [address] , [place] [facility] [place] [facility] 3 08:24:04 Hypokale gladis 93571229 Active 2022 Tabitha Felix MD [address], [place], [address] , [place] [facility] 3 09:48:46 Restless legs 34390105 Active 2023 Tabitha Felix MD [address], [address], [place], [address] , [place] [facility] [place] [facility] 4 08:34:02 Thyroid function tests abnormal 078503340 Active 2023 Tabitha Felix MD [address], [address], [place], [address] , [employer] [facility] [employer] [facility] 4 18:07:22 Pain in throat 295926561 Active 2023 Tabitha Felix MD [address], [place], [address] , [employer] [facility] 4 07:49:23 Vaginiti s 69725556 Active 2023 Tabitha Felix MD [address], [address] [facility], [place], [address] , [employer] [facility] 4 13:39:54 Upper respirat ory infectio n 89029093 Active 2023 BEN Forde [address] [employer], [address] [address], [place], [address] , [employer] [facility] [employer] [facility] 4 12:27:55 Type 2 diabetes mellitus without complica tion 654062212 Active 2023 Tabitha Felix MD [address], [address] [address], [place], [address] , [employer] [facility] [employer] [facility] 4 08:34:40 Visual field scotoma 82391024 Active 2023 Tabitha Felix MD [address], [place], [address] , [employer] [facility] [employer] [facility] 4 09:37:00 Visual impairme nt 248721389 Active 2023 Tabitha Felix MD [address], [place], [address] , [employer] [facility] [employer] [facility] 4 09:37:19 Benign intracra nial hyperten tad 20831083 Active 2023 see ophthalm ology notes [facility]. Dr. Julieta Sanchez I tried to change to Idiopath ic intracra nial hyperten tad . PRITI Rodríguez [address], [place], [address] , [place] [facility] [employer] [facility] [facility] 4 17:19:44 Mammogra phy abnormal 618863371 Active 2023 MARIA ELENA Forde-C [address], [place], [address] , [place] [facility] 4 16:05:15 Mass of right breast 22747783599 905641 Active 2023 MICHEL FordeC [address], [place], [address] , [employer] [place] [facility] [employer] [facility] 4 12:49:11 Screenin g for malignan t neoplasm of colon Active 2023 PRITI Rodríguez [address], [place], [address] , [employer] [facility] [employer] [facility] 4 17:31:51 Migraine 48894909 Active 2023 PRITI Rodríguez [address], [place], [address] , [employer] [facility] [employer] [facility] 4 16:02:14 Adult health examinat ion Active 2023 PRITI Rodríguez [address], [place], [address] , [employer] [facility] 4 10:37:32 Nicotine dependen ce 20601954 Active 2023 PRITI Rodríguez [address], [place], [address] , [employer] S [facility] [employer] [facility] 4 11:22:23 Overweig ht 100431201 Active 2024 PRITI Rodríguez [address], [place], [address] , [employer] S [facility] [employer] [facility] 5 14:54:44 Depressi ve disorder 63278142 Active 2024 PRITI Rodríguez [address], [place], [address] , [facility] [employer] [facility] 10:45:25 Anxiety 57694091 Active 2024 PRITI Rodríguez [address], [place], [address] , [facility] [employer] [facility] 5 10:49:31 Sinusiti s 31100658 Active 2024 PRITI Rodríguez [address] [facility] [address], [place], [address] , [facility] Giving Assistant [facility] [employer] [facility] 14:00:42 Notes:lumbar injury diabilit y . Problem Notes None recorded. Procedures Surgical History Date Name Laterality Status Provider Name and Address Organization Details Recorded Time 09/03/19 23 Medicare Wellness CPT Code, subsequent completed Neena Guzmán RN [facility] Patient Feed [facility] 08/29/2022 15:14:34 05/26/19 19 Hysterectomy, Partial completed Not Available Count includes the [facility] 07/24/2022 02:40:07 05/26/19 11 Knee Surgery completed Kadi Meyer RN [facility] Patient Feed [facility] 12/22/2023 17:04:50 excision of fibroadenoma of breast completed Not Available Count includes the [facility] 07/24/2022 02:40:07 Knee Surgery completed Kadi Meyer RN [facility] Patient Feed [facility] 12/22/2023 17:05:02 excision of bunion completed Kadi Meyer RN [facility] Patient Feed [facility] 12/22/2023 17:05:19 removal of ovarian cyst completed Kadi Meyer RN [facility] Patient Feed [facility] 12/22/2023 17:05:35 Imaging Results Imaging Date Name Status LastModified by Organiz [facility] Details LastModified Time 12/25/2023 imaging/diagno stic result completed [facility] Breast [address], [address], 01/19/2024 12:40:19 12/25/2023 MAMMO, diagnostic, digital, bilateral completed [email or web address] [address], [address], 01/05/2024 23:41:44 12/25/2023 MAMMO, diagnostic, digital, bilateral completed [email or web address] [facility] ([facility]) [address] [facility] [address], [place], [address], 01/05/2024 23:41:45 Procedure Notes None recorded. Medical Equipment None Reported. Allergies Allergen ID Allergen Name Allergen Category Reaction Reaction Severity Criticality Documentation Date Start Date Code Code System Note Provider Name and Address Organization Details Recorded Time 4990 Substance with sulfonami de structure and antibacte rial mechanism of action (substanc e) medicatio n itching moderate Not available 07/24/20222011 43764 8003 SNOMED for knee surg Not Available Count includes the [facility] 3 03:06:01 4991 [employer] en[employer] medicatio n seizure severe Not available 07/24/2022 44500 5 RxNorm extre me swell ing in lips. Not Available Count includes the [facility] 3 03:06:01 Medications Name Sig Start [...] 1 ml IM x 1 07/03 completed [facility]-4199 2e Not Available Not Available Not [...] EVERY DAY active Pt was advised at [facility] to take 2 tabs daily Not [...] mg by injectio n route. 11/07 completed [facility]: 0003-049 4-20 Not Available Not Available Not [...] administ ered by the provider 12/05 completed [facility]: [id number] 11-09 Not Available Not Available Not [...] Updated DateTime 4 170.18 cm 29.1 kg/m2 42800.1 8 g 98.4 [degF] 81 /min 148 mm[Hg] 94 mm[Hg] Chelsea Santiago RN [place] [employer] [facility] 4 15:59:16 Date Recorded Body height Body mass index (BMI) Body weight Body temperature Heart rate Oxygen saturation Oxygen saturation in Arterial blood by Pulse oximetry Respiratory rate Systolic blood pressure Diastolic blood pressure Provider Name and Address Organization Details Last Updated DateTime 4 170.18 cm 28.2 kg/m2 58963.6 3 g 98.4 [degF] 87 /min 97 % 97 % 16 /min 122 mm[Hg] 86 mm[Hg] Kadi Mitch, RN [facility] [employer] [facility] 4 17:07:29 Date Recorded Body height Body mass index (BMI) Body weight Body temperature Heart rate Oxygen saturation Oxygen saturation in Arterial blood by Pulse oximetry Systolic blood pressure Diastolic blood pressure Provider Name and Address Organization Details Last Updated DateTime 4 170.18 cm 27.9 kg/m2 31525.4 4 g 98.5 [degF] 97 /min 97 % 97 % 130 mm[Hg] 86 mm[Hg] Kadi Meyer RN [facility] Patient Feed [facility] 4 11:08:58 Date Recorded Body height Body mass index (BMI) Body weight Body temperature Systolic blood pressure Diastolic blood pressure Provider Name and Address Organization Details Last Updated DateTime 5 170.18 cm 28.8 kg/m2 01475 g 96.2 [degF] 118 mm[Hg] 84 mm[Hg] Waleska Marquez CNA [facility] Patient Feed [facility] 5 10:35:56 Social History Question Answer Notes LastModified by Organizat ion Details LastModified Time Tobacco Smoking Status Current Every Day Smoker Not Available [facility] 07/24/2022 02:31:53 Do You Have An Advance Directive? No MIGRATION.89138 18948 Information not available 07/24/2022 What Is Your Level Of Alcohol Consumption? None MIGRATION.47472 16895 Information not available 07/24/2022 Do You Wear A Helmet When Biking? No MIGRATION.31561 48167 Information not available 07/24/2022 What Is Your Level Of Caffeine Consumption? Moderate MIGRATION.83564 83194 Information not available 07/24/2022 In The 14 Days Before Symptom Onset, Have You Had Close Contact With A Laboratory-confi rmed COVID-19 While That Case Was Ill? No MIGRATION.62122 13386 Information not available 07/24/2022 In The 14 Days Before Symptom Onset, Have You Had Close Contact With A Person Who Is Under Investigation For COVID-19 While That Person Was Ill? No MIGRATION.46930 86967 Information not available 07/24/2022 What Type Of Diet Are You Following? REGULAR Low Carb MIGRATION.01336 59099 Information not available 07/24/2022 Which Illicit Or Recreational Drugs Have You Used? No MIGRATION.19287 23322 Information not available 07/24/2022 Do You Or Have You Ever Used E-cigarettes Or Vape? Never Used Electronic Cigarettes MIGRATION.60790 64759 Information not available 07/24/2022 What Is Your Occupation? Disable MIGRATION.03615 40833 Information not available 07/24/2022 Have There Been Any Changes To Your Family Or Social Situation? No MIGRATION.37380 64013 Information not available 07/24/2022 Are There Any Guns Present In Your Home? No MIGRATION.19777 64958 Information not available 07/24/2022 Do You Use Insect Repellent Routinely? No MIGRATION.25723 84119 Information not available 07/24/2022 Where Do You Live? [facility] MIGRATION.74051 77832 Information not available 07/24/2022 Advance Directive- Providers Has Reviewed Directive And Consents To Follow Them (insert Provider Name With Any Objectives In Notes Field) No MIGRATION.36893 35576 Information not available 07/24/2022 Are You Following A Low Salt Diet? No MIGRATION.12272 95408 Information not available 07/24/2022 Do You Have A Medical Power Of Slag Production Worker? No MIGRATION.26404 87157 Information not available 07/24/2022 What Was The Date Of Your Most Recent Tobacco Screening? 09/02/2022 [email or web address] Information not available 09/02/2022 Do You Have Any Pets? Yes MIGRATION.79960 20711 Information not available 07/24/2022 What Is Your Relationship Status? MIGRATION.77125 37448 Information not available 07/24/2022 Do You Use Your Seat Belt Or Car Seat Routinely? Yes MIGRATION.60487 34831 Information not available 07/24/2022 Do You Have Smoke And Carbon Monoxide Detectors In Your Home? Yes MIGRATION.14475 08674 Information not available 07/24/2022 At What Age Did You Start Smoking Tobacco? 14 MIGRATION.64511 21134 Information not available 07/24/2022 Are You Passively Exposed To Smoke? No MIGRATION.18783 89881 Information not available 07/24/2022 Do You Or Have You Ever Used Smokeless Tobacco? Never Used Smokeless Tobacco MIGRATION.60540 63363 Information not available 07/24/2022 Are There Any Smokers In Your House? Yes MIGRATION.00694 18458 Information not available 07/24/2022 How Much Tobacco Do You Smoke? 1 PPD MIGRATION.66552 76895 Information not available 07/24/2022 Do You Participate In Social Media? No MIGRATION.89973 18129 Information not available 07/24/2022 Do You Feel Stressed (tense, Restless, Nervous, Or Anxious, Or Unable To Sleep At Night)? [id number] MIGRATION.92240 06550 Information not available 07/24/2022 Do You Use Any Illicit Or Recreational Drugs? No [email or web address] Information not available 10/03/2022 Do You Use Sunscreen Routinely? Yes MIGRATION.13936 69168 Information not available 07/24/2022 How Many Years Have You Smoked Tobacco? 25 [email or web address] Information not available 11/07/2022 Have You Recently Traveled Abroad? No MIGRATION.41703 51930 Information not available 07/24/2022 Are You Currently In School? No MIGRATION.12859 66330 Information not available 07/24/2022 Do You Have Any Dietary Restrictions? Yes MIGRATION.15311 68423 Information not available 07/24/2022 Sex: Unknown Functional Status Question Answer Note LastModified by [email or web address] ion Details LastModified Time What is your exercise level? Occasional MIGRATION.[id number] 26 Information not available 07/24/2022 Mental Status None recorded. Family History Relationship Description Onset Age of this Age Resolved Age Notes LastModified by Organization Details LastModified Time Maternal Grandfather Diabetes mellitus MIGRATION.999 [id number] Not available 07/24/2022 02:40:11 Maternal Grandfather Essential hypertension Not available 03/2025 10:24:56 Maternal Grandfather Heart disease [email or web address] Not available 2022 10:19:17 Paternal Grandfather Diabetes mellitus MIGRATION.604 [id number] Not available 07/24/2022 02:40:11 Father Diabetes mellitus MIGRATION.084 4700540 Not available 07/24/2022 02:40:11 Mother Essential hypertension [email or web address] Not available 03/2025 10:24:56 Maternal Grandmother Malignant tumor of breast [email or web address] Not available 2024 10:24:56 Maternal Grandmother Family history of malignant neoplasm Not available 2024 10:24:56 Medical History Condition Response BLINDNESS N RHEUMATIC FEVER N KIDNEY STONES N BLADDER PROBLEMS N OTHER # 1 N POLIO N LUNG DISEASE/DISORDER N RADIATION / CHEMOTHERAPY N COPD N Other # 2 N BLOOD DISEASES N SURGERY N EAR OR HEARING PROBLEMS N MUMPS N BOWEL PROBLEMS N FEMALE PROBLEMS / INFECTIONS N DEPRESSION (INCLUDING POST ) N STROKE/TIA N THYROID DISEASE N ULCERS [...] GLAUCOMA N FOOT PROBLEM N DIVERTICULITIS N CHICKENPOX N SLEEP APNEA N ALLERGIES/HAYFEVER N INFECTIOUS DISEASE N HEART ARRHYTHMIA N PROSTATE N INSOMNIA N HIGH CHOLESTEROL / HYPERLIPIDEMIA N HYPERTHYROIDISM N EYE PROBLEMS N EATING DISORDER N NEUROLOGICAL PROBLEMS N EDEMA N CHRONIC PAIN SYNDROME N HYPOTHYROIDISM N CONSTIPATION N CAROTID BLOCKAGE N BACK / NECK PROBLEMS N HAVE YOU BEEN HOSPITALIZED OR SEEN IN [facility] IN THE PAST YEAR ? N ATHEROSCLEROSIS [...] DISORDER N ALZHEIMER'S DISEASE N PAIN N HERPES N DEMENTIA N HEADACHES/MIGRAINES N SEIZURES/EPILEPSY N VASCULAR DISEASE N PACEMAKER N DIZZINESS N HEART DISEASE/HEART PROBLEMS N KIDNEY DISEASE N DEVELOPMENTAL OR BEHAVIORAL DISORDERS N MULTIPLE SCLEROSIS N SCARLET FEVER N MENTAL DISORDER/ILLNESS N CARDIAC ARRHYTHMIA N CANCER: SPECIFY N ANESTHESIA COMPLICATIONS N PNEUMONIA N ATRIAL FIBRILLATION N PULMONARY EMBOLISM N [...] 50 mcg/0.25mL dose 08/15/2020 completed Not Available [facility] 3 03:05:24 COVID-19, mRNA, LNP-S, PF, 30 mcg/0.3 mL dose 05/02/2021 completed Not Available [facility] 3 03:05:24 COVID-19, mRNA, LNP-S, PF, 100 mcg/0.5mL dose or 50 mcg/0.25mL dose 07/25/2020 completed Not Available [facility] 3 03:05:24 Influenza, split virus, quadrivalent, PF 02/22/2020 completed Not Available [facility] 3 03:05:24 Tdap 06/01/2019 completed Not Available [facility] 07/24/2022 03:05:25 Influenza, split virus, quadrivalent, PF 03/15/2019 completed Not Available [facility] 3 03:05:25 Influenza, split virus, quadrivalent, PF 02/25/2018 completed Not Available [facility] 3 03:05:25 Influenza, split virus, quadrivalent, PF 02/21/2022 completed Not Available [facility] 3 03:05:25 Influenza, split virus, quadrivalent, PF 02/06/2021 completed Not Available [facility] 3 03:05:25 Influenza, split virus, quadrivalent, PF 05/27/2017 completed Not Available [facility] 3 03:05:25 Past Encounters Encounter ID Performer Location Encounter Start Date Encounter Closed Date Diagnosis/Indication Diagnosis SNOMED-CT Code Diagnosis ICD10 Code Diagnosis Note [id number] [facility] [place] [address] [facility] [address] [facility] [place] [address] 08/10/2020 00:00:00 08/22/2020 10:48:30 [id number] [facility] [place] [address] [facility] [address] [place] [address] 11/07/2020 00:00:00 11/07/2020 08:37:16 [id number] [facility] [address] [place] [address] 11/23/2020 00:00:00 11/23/2020 11:50:00 [id number] [facility] [place] [address] [place] [address] 12/05/2020 00:00:00 12/05/2020 08:31:58 [id number] [facility] [address] [place] [address] 01/02/2021 00:00:00 01/02/2021 14:47:39 [id number] [facility] [place] [address] [place] [address] 01/02/2021 00:00:00 01/02/2021 09:06:32 [id number] [facility] [place] [address] [place] [address] 02/06/2021 00:00:00 02/06/2021 08:25:13 [id number] [facility] [place] [address] [place] [address] 03/15/2021 00:00:00 03/15/2021 10:14:16 [id number] [facility] [place] [address] [place] [address] 04/26/2021 00:00:00 05/04/2021 08:11:18 [id number] [facility] [place] [address] [place] [address] 05/29/2021 00:00:00 05/29/2021 09:18:56 [id number] [facility] [place] [address] [place] [address] 08/28/2021 00:00:00 08/28/2021 08:55:11 [id number] [facility] [address] [place] [address] 09/06/2021 00:00:00 09/06/2021 15:44:49 [id number] [facility] [place] [address] [place] [address] 09/25/2021 00:00:00 10/19/2021 12:33:55 [id number] [facility] [address] [place] [address] 11/05/2021 00:00:00 11/06/2021 09:50:15 [id number] [facility] [address] [place] [address] 11/12/2021 00:00:00 11/12/2021 13:27:04 [id number] [facility] [address] [place] [address] 11/29/2021 00:00:00 11/29/2021 10:16:04 [id number] [facility] [address] [place] [address] 12/13/2021 00:00:00 12/13/2021 13:09:18 [id number] [facility] [place] [address] [place] [address] 12/25/2021 00:00:00 12/25/2021 08:46:26 [id number] [facility] [place] [address] [place] [address] 02/04/2022 00:00:00 02/04/2022 10:05:22 [id number] [facility] [place] [address] [place] [address] 02/21/2022 00:00:00 02/21/2022 13:53:14 [id number] [facility] [place] [address] [place] [address] 02/26/2022 00:00:00 02/26/2022 13:59:32 [id number] [facility] [place] [address] [place] [address] 04/30/2022 00:00:00 04/30/2022 10:05:48 [id number] [facility] [place] [address] [facility] [address] [place] [address] 06/03/2022 00:00:00 06/03/2022 18:32:03 [id number] Tabitha Felix MD [facility] [address] [place] [address] [address] [place] [address] 09/02/2022 11:10:20 09/02/2022 12:23:32 Adult health examination 640887392 Z00.00 mammogram and US done /p hysterecto my, no paps neededcolo n cancer screen age 44recomm[age] d smoking cessationy early flu vaccinecov id booster recommende d Screening for disorder 172835224 Z13.9 Degenerati on of lumbar intervertebral disc 25661846 M51.36 sees neurosurge ry on Fri Menopausal symptom 35113 002 N95.1 Hyperlipidemia 28689415 E78.5 Z79.899 Vitamin D deficiency 347 56041 E55.9 Diabetes mellitus 862802 09 E11.9 increase ozempic 1 mg Essential hypertension 14176503 I10 [id number] Tabitha Felix MD [facility] [address] [place] [address] [address] [place] [address] 10/03/2022 12:39:08 10/03/2022 13:19:17 Increased liver function 57034728 R94.5 repeat lfts [id number] PRITI Magaña [facility] [address] [place] [address] 10/10/2022 10:15:44 10/10/2022 11:18:10 Pain of right knee joint 2425538849 76223 M25.561 Osteoarthr itis of right knee joint 7260947137 64885 M17.11 Derangemen t of medial meniscus 770856599 M23.331 [id number] Avelino Yin MD [facility] [address] [place] [address] 10/24/2022 10:09:54 10/24/2022 11:24:10 Derangement of medial meniscus 926934485 M23.331 Pain of ri ght knee joint 0653418025 15233 M25.561 Osteoarthr itis of right knee joint 1338045020 96158 M17.11 Tear of me dial meniscus of knee 999426926 S83.241A Pre-surger y evaluation 428939674 Z01.818 [id number] Avelino Yin MD [facility] [address] [place] [address] 11/07/2022 10:00:11 11/07/2022 11:14:42 Derangement of medial meniscus 662055485 M23.331 Pain of ri ght knee joint 3626074964 93043 M25.561 Osteoarthr itis of right knee joint 7603791295 00168 M17.11 Tear of me dial meniscus of knee 552537299 S83.241A Postoperative visit 1836 02800 Z09 [id number] Tabitha Felix MD [facility] Primary Care [facility] [email or web address] [facility] [address] [place] [address] 01/07/2023 08:00:56 01/07/2023 08:42:49 Diabetes mellitus 40166957 E11.9 stableozem pic 1 mg sc qweekcheck labs Skin lesion 34688527 L98 .9 derm referral Essential hypertension 38011955 I10 stablechec k labs Degenerati on of lumbar intervertebral disc 80027019 M51.36 stablePt understand s this medication has risk for abuse/depe ndence and agrees to take it only as prescribed and to guard from loss/theft [place] prescripti on monitoring website reviewed [id number] Tabitha Felix MD [facility] Primary Care [facility] [email or web address] [facility] [address] [place] [address] 07/08/2023 08:23:23 07/08/2023 08:44:48 Diabetes mellitus 09051761 E11.9 stableozem pic 1 mg sc qweekcheck labs update 07/08/23: increase ozempic 2 mg weekly to improve weight losscheck labs Restless legs 41270911 G 25.81 R53.83 R63.5 D64.9 continue pregabalin 150 mg bidcheck labsconsid er ropinirole if labs are normal Hyperlipidemia 02150342 E78.5 Z79.141 [id number] Tabitha Felix MD [facility] Primary Care [facility] [address] [facility] [address] [place] [address] 10/07/2023 08:14:01 10/07/2023 08:34:38 Renewal of prescription 285835265 Z76.0 Degenerati on of intervertebral disc 62505852 M51.9 stable Diabetes mellitus 901581 09 E11.9 stableozem pic 1 mg sc qweekcheck labs update 07/08/23: increase ozempic 2 mg weekly to improve weight [facility]ck labs update 10/07/23: did not tolerate ozempic 2 mg, ok to continue ozempic 1 mg sc [id number] 5.8 Hyperlipidemia 70403980 E78.5 Z79.899 monitor triglyceri shawanda Hypokalemia 90806558 E87 .6 stablerefi ll given [id number] BEN Forde [facility] Primary Care [facility] [address] [facility] [address] [place] [address] 11/11/2023 14:36:02 11/11/2023 15:27:43 [id number] BEN Forde [facility] Primary Care [facility] [address] [facility] [address] [place] [address] 11/18/2023 15:51:49 11/18/2023 16:17:11 Benign intracranial hypertension 85141472 G93.2 appt with neuro the 19 of January Mammography abnormal 168 932569 R92.8 Degenerati on of intervertebral disc 97823900 M51.9 [id number] PRITI Rodríguez [facility] Family Practice [facility] [address] [place] [address] 12/22/2023 16:39:37 03/05/2024 13:07:29 Benign intracranial hypertension 36763834 G93.2 Type 2 amaya betes mellitus without complication 744609359 E11.9 Degenerati on of lumbar intervertebral disc 03651097 M51.36 Degenerati on of intervertebral disc 52561122 M51.9 Hypokalemia 23451174 E87 .6 Screening for malignant neoplasm of colon 111979964 Z12.11 Adult heal th examination 886963260 Z00.00 Essential hypertension 92082204 I10 Tear of me dial meniscus of knee 342409279 S83.241A Vitamin D deficiency 347 01140 E55.9 [id number] PRITI Rodríguez [facility] [address] [facility] [place] [address] 03/30/2024 10:59:06 03/30/2024 11:29:01 Hypokalemia 78698692 E87.6 Screening for malignant neoplasm of colon 661164498 Z12.11 Benign int racranial hypertension 27373513 G93.2 Degenerati on of lumbar intervertebral disc 60370848 M51.361 Essential hypertension 82276235 I10 Hyperlipidemia 70951255 E78.5 Osteoarthr itis of right knee joint 4267817041 75795 M17.11 Tear of me dial meniscus of knee 126785404 S83.241A Type 2 amaya betes mellitus without complication 473013995 E11.9 Vitamin D deficiency 347 58677 E55.9 [id number] PRITI Rodríguez [address] [address] 07/02/2024 08:48:32 07/02/2024 10:47:49 [id number] PRITI Rodríguez [address] [address] 07/06/2024 10:24:20 07/06/2024 10:59:39 Depressive disorder 64231492 F32.A Renewal of prescription 362481323 Z76.0 Degenerati on of intervertebral disc 34167564 M51.9 Anxiety 04517180 F41.9 Hyperlipidemia 15536865 E78.5 Health Concerns Section Related Observation LastModified by Organization Detai ls LastModified Time None Recorded Concern Status LastModified by Organization Details LastModified Time None Recorded Advance Directives Directive N: Payers Encounter Date Sequence Insurance Name Policy Number Policy Garcia Covered Member ID Garcia Member ID Guarantor Name 11/18/2023 1 [place] Yissel Sanchez Frauenfelder [id number] 7 Yissel Sanchez Frauenfelder 11/18/2023 2 [place] WHEN [place]ARE OR MEDICARE REPLACEMENT PRIMARY) Yissel Sanchez Frauenfelder [id number] Yissel Sanchez Frauenfelder 12/22/2023 1 [place] Yissel Sanchez Frauenfelder [id number] 7 Yissel Sanchez Frauenfelder 12/22/2023 2 [place] OR [place]IC[place] REPLACEMENT PRIMARY) Yissel Sanchez Frauenfelder [id number] Yissel Sanchez Frauenfelder 03/30/2024 1 [place] Yissel Sanchez Frauenfelder [id number] Yissel Sanchez Frauenfelder 03/30/2024 2 [place] OR MEDICARE REPLACEMENT PRIMARY) Yissel Sanchez Frauenfelder [id number] Yissel Sanchez Frauenfelder 07/02/2024 1 [place] Yissel Sanchez Frauenfelder [id number] 7 Yissel Sanchez Frauenfelder 07/02/2024 2 [place] OR MEDICARE REPLACEMENT PRIMARY) Yissel Sanchez Frauenfelder [id number] Yissel Sanchez Frauenfelder 07/06/2024 1 [place] Yissel Sanchez Frauenfelder [id number] 7 [id number] 7 Yissel Sanchez Frauenfelder 07/06/2024 2 [place] OR MEDIC[place] REPLACEMENT PRIMARY) Yissel Sanchez Frauenfelder [id number] Yissel L Frauenfelder Notes Date Note Type Note Provider Name and Address Organization Details Recorded Time 11/18/2023 text/html pt is here for f/u Antonio Amy sharma, 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 her brother lung cancer , mouth cancer .. can't sleep , has colonoscopy scheduled , parents had polyps . PRITI Rodríguez [address], [place], [address], [employer] 07/10/2024 11:53:34 OBGyn Episode No OBEpisode recorded.
--- OUTSIDE RECORDS SUMMARY | 2024-08-11 11:16 | XMS_ITS | Referral Summary ---
Author Organization [facility] Address [address] [place] [address] Care Team Providers Care Recreation Therapy Director Name Role Phone Tabitha Felix MD Primary [...] test Assessment & Plan (04/08/2024 5:14 PM CHECKER CASHIER): - Patient feels that her symptoms are [...] CNVM. Assessment & Plan (04/08/2024 5:13 PM CHECKER CASHIER): - Today with continued resolution of subretinal [...] for DFE OU, fundus photos OU (at [facility]), OCT mac OU, possible antiVEGF OS Assessment [...] and intravenous fluorescein angiography (IVFA) at the [facility] (testing visit) in 1 week --[facility] retina in 2 weeks for interpretation of [...] on file Legal Sex Female 10:19 AM CHECKER CASHIER Gender Identity Not on file Sexual Orientation [...] by: Lian Owens M.D. us Antonio Troncoso PARTS REMOVER IMG MAMMO PROCEDURES Final Re sult * [...] LAB BLOOD ORDERABLES Final R esult [facility] [address] [place] [address] * (ABNORMAL) Lipid panel (02/21/2022) [...] Recently Relevant to Health Maintenance Insurance MEDICARE [facility] MEDICARE [facility] Address: [address] [address] [place] [address] IDPA IDPA MEDICARE Care Teams Recreation Therapy Director Relationship Specialty Start Date End Date Tabitha Felix MD PCP - General 09/30/16
--- OUTSIDE RECORDS SUMMARY | 2024-08-11 11:16 | XMS_ITS | Clinical Summary ---
Author Organization [facility] Address [address] [place] [phone] Phone Care Team Providers Care Slate Handler Name Role Phone Tabitha Felix MD Primary Care Provider + Allergies Active Allergy Reactions Criticality Noted Date Comments Sulfa (Sulfonamide Antibiotics) Itching Low 04/25 Unclassified Drug Swelling Low 05/06/2018 Medications cyclobenzaprine (FLEXERIL) 10 mg tablet Take 10 mg by mouth 3 times daily as needed for Spasm. 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 PLAN MEDICAID Care Teams Slate Handler Relationship Specialty Start Date End Date Tabitha Felix MD [address] [place] [address] [place] [address] PCP - General Family Practice 05/06/18
--- OUTSIDE RECORDS SUMMARY | 2024-08-11 11:17 | XMS_ITS | Encounter Summary ---
Author Organization [facility] Healthcare Address [address] [place] [address] Care Team Providers Care Awning Finisher Name Role Phone Tabitha Felix MD Primary Care Provider + Reason for Visit * Diagnostic Imaging (Routine) - Closed Specialty Diagnoses / Procedures Referred By Yamel tenorio Referred To Contact Procedures Breast Imaging Screening Outside Reference Aft, Earnestine Gonzalez MD PhD [address] [place] [address] Phone: tel: fax: Referral ID Status Reason Start Date Expiration Date Visits Re quested Visits Authorized [id number] Closed 07/12/2021 08/11/2022 1 1 Encounter Details Date Type Department Care Team (Late st Contact Info) Description 05/16/2020 Hospital Encounter [facility] Radiology [facility] [address] [place] [phone] Social History Tobacco Use Types Packs/Day Years [...] on file Legal Sex Female 10:19 AM PAYROLL CONSULTANT Gender Identity Not on file Sexual Orientation [...] SCREENING OUTSIDE REFERENCE Routine 05/16/2020 12:00 AM PAYROLL CONSULTANT documented in this encounter Results * Breast Imaging Screening Outside Reference (05/16/2020 12:00 AM PAYROLL CONSULTANT) Impressions [facility] - 07/12/2021 4:25 PM PAYROLL CONSULTANT These images are for Reference purposes only and have not been reviewed by [facility] Radiology. There will be no report generated by a [facility] Radiologist. Narrative [facility] - 07/12/2021 4:25 PM PAYROLL CONSULTANT EXAMINATION: Images For Reference Purposes Only us Earnestine Morrow MD PhD IMG MAMMO PROCEDURES Final Result [facility] documented in this encounter Visit Diagnoses Not on filedocumented in this encounter Care Teams Awning Finisher Relationship Specialty Start Date End Date Tabitha Felix MD PCP - General 09/30/16 documented as of this encounter
--- OUTSIDE RECORDS SUMMARY | 2024-08-11 11:17 | XMS_ITS | Encounter Summary ---
Author Organization [facility] Healthcare Address [address] [place] [address] Care Team Providers Care Information Assurance Engineer Name Role Phone Tabitha Felix MD Primary Care Provider + Reason for Visit * Diagnostic Imaging (Routine) - Closed Specialty Diagnoses / Procedures Referred By Yamel tenorio Referred To Contact Procedures Breast Imaging Screening Outside Reference Aft, Earnestine Gonzalez MD PhD [address] [place] [address] Phone: tel: fax: Referral ID Status Reason Start Date Expiration Date Visits Re quested Visits Authorized [id number] Closed 07/12/2021 08/11/2022 1 1 Encounter Details Date Type Department Care Team (Late st Contact Info) Description 04/14/2019 Hospital Encounter [facility] Radiology [facility] [address] [place] [phone] Social History Tobacco Use Types Packs/Day Years [...] on file Legal Sex Female 10:19 AM LABORATORY ASSOCIATE Gender Identity Not on file Sexual Orientation [...] SCREENING OUTSIDE REFERENCE Routine 04/14/2019 12:00 AM LABORATORY ASSOCIATE documented in this encounter Results * Breast Imaging Screening Outside Reference (04/14/2019 12:00 AM LABORATORY ASSOCIATE) Impressions [facility] - 07/12/2021 4:25 PM LABORATORY ASSOCIATE These images are for Reference purposes only and have not been reviewed by [facility] Radiology. There will be no report generated by a [facility] Radiologist. Narrative [facility] - 07/12/2021 4:25 PM LABORATORY ASSOCIATE EXAMINATION: Images For Reference Purposes Only us Earnestine Morrow MD PhD IMG MAMMO PROCEDURES Final Result [facility] documented in this encounter Visit Diagnoses Not on filedocumented in this encounter Care Teams Information Assurance Engineer Relationship Specialty Start Date End Date Tabihta Felix MD PCP - General 09/30/16 documented as of this encounter
[2024-08-11 12:29] VITALS: BP 129/81; PULSE 75; RESP 15; TEMP 36.6; O2SAT 98
--- NOTE | 2024-08-11 13:40 | ED_ITS ---
HPI - Recheck/Abnormal Lab/Rx General Chief Complaint: Recheck/Abnormal Lab/Rx Stated Complaint: bleeding post colonoscopy Time Seen by Provider: 08/11/24 13:37 Source: patient and family Mode of arrival: ambulatory Limitations: no limitations History of Present Illness HPI narrative: Patient presents with complaint of bright red blood per rectum. She underwent colonoscopy yesterday with fly maker Dr. Constantine Edwards. She had returned home by 10:00 a.m. yesterday and several hours later started having initially bloody drops in toilet water as well as followed by 4 bloody stools, bloody diarrhea. She had been having rectal pain with a feeling of pressure at the perineum after each void though she reports it as 3/10 in severity. Chronically on Vicodine TID. Denies sexual intercourse since the colonoscopy. No vaginal pain. For her colonoscopy prep she had Miralax as well as 8 laxatives. She has been having abdominal pain/cramping which she describes more as a gurgling sensation. No nausea or vomiting. She is on 81 mg aspirin and she took this this morning but otherwise not on any anticoagulation NSAIDs, or steroids. Denies any fevers or chills. Related Data Home Medications ?Medication ?Instructions ?Recorded ?Confirmed ?Last Taken ?Type albuterol sulfate 90 mcg/actuation 1 inh inhalation QID PRN Pain 05/01/19 08/10/24 08/09/24 History aerosol inhaler cyclobenzaprine 10 mg tablet 10 mg PO TID 05/01/19 08/10/24 08/09/24 History duloxetine 30 mg capsule,delayed 30 mg PO DAILY 05/01/19 08/10/24 08/09/24 History release (Cymbalta) atorvastatin 10 mg tablet 10 mg PO DAILY 06/30/20 08/10/24 08/09/24 History famotidine 20 mg tablet 20 mg PO DAILY 06/30/20 08/10/24 08/09/24 History hydrochlorothiazide 25 mg tablet 25 mg PO DAILY 06/30/20 08/10/24 08/09/24 History ibuprofen 800 mg tablet 800 mg PO Q6H 06/30/20 08/10/24 08/08/24 History metformin 1,000 mg tablet,extended 1,000 mg PO DAILY 06/30/20 08/10/24 08/09/24 History release 24hr (osmotic) acetazolamide 500 mg 500 mg PO BID 07/29/24 08/10/24 08/09/24 History capsule,extended release fenofibrate See Rx Instructions .Route DAILY 07/29/24 08/10/24 08/09/24 History potassium chloride 20 mEq 40 meq PO DAILY 07/29/24 08/10/24 08/09/24 History tablet,extended release pregabalin 150 mg capsule 150 mg PO BID 07/29/24 08/10/24 08/10/24 History sumatriptan succinate 100 mg tablet 100 mg PO DAILY PRN headache 07/29/24 07/29/24 Unknown History hydrocodone 10 mg-acetaminophen tablet 08/10/24 08/10/24 07:00 History 325 mg tablet 1 tablet Allergies Allergy/AdvReac Type Severity Reaction Status Date / Time benzocaine (From Allergy Severe LOWER LIP Verified 08/10/24 08:57 Campho-Phenique) SWELLED SEVERELY camphor (From Allergy Severe LOWER LIP Verified 08/10/24 08:57 Campho-Phenique) SWELLED SEVERELY menthol (From Allergy Severe LOWER LIP Verified 08/10/24 08:57 Campho-Phenique) SWELLED SEVERELY petrolatum,white (From Allergy Severe LOWER LIP Verified 08/10/24 08:57 Campho-Phenique) SWELLED SEVERELY phenol (From Campho-Phenique) Allergy Severe LOWER LIP Verified 08/10/24 08:57 SWELLED SEVERELY phenol liquid (From Allergy Severe LOWER LIP Verified 08/10/24 08:57 Campho-Phenique) SWELLED SEVERELY pramoxine (From Allergy Severe LOWER LIP Verified 08/10/24 08:57 Campho-Phenique) SWELLED SEVERELY Sulfa (Sulfonamide Allergy Severe RASH Verified 08/10/24 08:55 Antibiotics) [facility] Past Medical History Medical History Colon cancer screening Opioid use Diabetes Chronic back pain Ovarian cyst Endometriosis Surgical History Surgical History (Updated 08/11/24 @ 22:35 by Betzy Penn MD) History of colonoscopy 08/10/24 History of orthopedic surgery Cyst removed back of right knee 2010 H/O dilation and curettage History of tubal ligation Family History Family History Other Hypertension Respiratory disease Social History Social History (Updated 08/11/24 @ 22:35 by Betzy Penn MD) Smoking packs per day: 1 Smoking cigarettes per day: 20.0 Years smoked: 30 Smoking pack-years: 30.00 Smoking status: Current every day smoker Tobacco type: cigarettes Alcohol intake: never Substance use: current Substance use type: marijuana Other substance usage details: ingests marijuana about once every 3 months Living arrangements: with family Additional living arrangements comments: Gender identity (if verbalized by the patient): Female Spiritual care concerns: No Exam 2 Narrative: GENERAL: Well-appearing, well-nourished, and in no acute distress. HEAD: Normocephalic, atraumatic. EYES: Non injected, non icteric ENT: Nares clear, no rhinorrhea or epistaxis. NECK: Supple. CHEST: Speaking in full sentences. No respiratory distress. HEART: Regular rate and rhythm. . ABDOMEN: Soft, nondistended. Nontender to palpation throughout. No rigidity or guarding. Not peritoneal. GILDARDO: Performed with tech Sanaz as provider relations rep. Normal rectal tone. No gross bleeding appreciated. No palpable masses. FOBT/guiaic positive. EXTREMITIES: Normal range of motion. SKIN: Warm, dry, no rash. NEURO: No focal deficits. Alert and oriented x3. PSYCH: Normal mood and affect. Course Vital Signs Vital signs: Vital Signs Temperature 97.0 F L 08/11/24 10:06 Pulse Rate 80 08/11/24 10:06 Respiratory Rate 16 08/11/24 10:06 Blood Pressure 125/62 08/11/24 10:06 Pulse Oximetry 100 08/11/24 10:06 Temperature 97.9 F 08/11/24 14:04 Pulse Rate 66 08/11/24 14:04 Respiratory Rate 17 08/11/24 14:04 Blood Pressure 118/73 08/11/24 14:04 Pulse Oximetry 99 08/11/24 14:04 MDM - Recheck/Abnormal Lab/Rx MDM Narrative Medical decision making narrative: The patient is a 44 year old who comes to the emergency department with bright red rectal bleeding that started approximately 24 hours prior to arrival after undergoing colonoscopy. They noted bright red blood in the toilet which has recurred several times since onset as well as with hematochezia. Some associated abdominal pain and rectal pain as well as perineal pressure. In the emergency department they are afebrile with vital signs within normal limits. Based on history and physical, suspect lower GI bleed so will go ahead and order CBC, CMP, coagulation studies, lactate, and type and screen. My differential diagnosis at this time is likely post colonoscopy bleeding/expected complication. Considered diverticulosis versus angiodysplasia versus Meckel's diverticulum. Colon cancer is also possible. Unlikely to be ischemic bowel or anal fissure. Possibly IBD/infectious diarrhea. Possibly hemorrhoids. Considered comlication such as perforation. Not anemic [place] Score (predicts readmission risk in patients with acute lower GI bleeding) Based on age, sex, previous lower GI bleed admission, GILDARDO findings, HR, SBP, and initial Hgb: 10 points 91?% Probability of safe discharge (absence of rebleeding, blood transfusion, therapeutic intervention, 28 day readmission, or ). Despite this, she otherwise appears hemodynamically stable. Discussed this with Dr Constantine Edwards who concurs that she is likely stable for discharge with return precautions. Option of repeat H&H 4 hours from initial was offered to the patient however she would prefer to go home as she has not had a bloody bowel movement since before my initial assessment of her. This is also very reasonable. She can follow-up with her primary care physician if she continues to have some mild bleeding for outpatient repeat lab (H&H or CBC). Advised that this should continue to improve/get better. Patient given strict emergency department return precautions and she verifies understanding. Otherwise stable for discharge. We discussed the incidental findings on her CT scan and that follow-up for these could be arranged through her primary care physician; acknowledges understanding. Provided prescription for oral disintegrating tablets of Zofran if needed. Lab Data Attestation: I reviewed the patient's lab results. Lab results narrative: Urinalysis unremarkable. CMP unremarkable test negative 08/11/24 13:58 08/11/24 13:58 Labs: Lab Results 08/11/24 08/11/24 Range/Units 13:58 14:25 WBC 7.7 (4.5-10.0) K/mm3 RBC 4.41 (4.2-5.4) M/mm3 Hgb 13.2 (12.0-15.0) g/dL Hct 40.7 (37.0-47.0) % MCV 92.3 (80-100) fl MCH 29.9 (26-34) pg MCHC 32.4 (32-36) g/dl RDW 15.4 H (11.5-14.5) % Plt Count 291 (150-375) k/mm3 MPV 10.8 H (7.4-10.4) fl Immature Gran % (Auto) 0.3 (0-0.5) % Neut % (Auto) 57.0 (45.5-73.1) % Lymph % (Auto) 35.4 (18.3-44.2) % [place] % (Auto) 4.5 (2.6-8.5) % Eos % (Auto) 1.6 (0-4.4) % Baso % (Auto) 1.2 (0.2-1.2) % Lymph # (Auto) 2.74 (0.9-3.2) K/mm3 [place] # (Auto) 0.4 (0.1-0.6) K/mm3 Eos # (Auto) 0.1 (0-0.3) K/mm3 Baso # (Auto) 0.1 (0.0-0.1) K/mm3 Abs Immat Gran (auto) 0.02 (0.00-0.031) K/mm3 Absolute Neuts (auto) 4.4 (1.3-6.7) K/mm3 Absolute Nucleated RBC 0.000 (0.0-0.012) K/mm3 Nucleated RBC % 0.0 (0.0-0.2) % Sodium 140 (137-145) mmol/L Potassium 3.5 (3.4-5.0) mmol/L Chloride 105 (98-107) mmol/L Carbon Dioxide 25 (22-30) mmol/L Anion Gap 10 (4-12) mmol/L BUN 12 (7-17) mg/dL Creatinine 0.86 (0.7-1.0) mg/dL Estim Creat Clear Calc 80 ml/min Estimated GFR > 60 (59 - ) Glucose 91 (65-110) mg/dL Lactic Acid 0.9 (0.7-2.0) mmol/L Calcium 8.8 (8.4-10.2) mg/dL Total Bilirubin 0.4 (0.2-1.3) mg/dL AST 23 (14-36) U/L ALT 29 (6-35) U/L Alkaline Phosphatase 65 (38-126) U/L Total Protein 7.0 (6.3-8.2) g/dL Albumin 4.3 (3.5-5.1) g/dL Urine Color Yellow (Yellow) Urine Appearance Clear (Clear) Urine pH 6.5 (5.0-9.0) Ur Specific [place] 1.014 (1.001-1.035) Urine Protein Negative (Negative) mg/dL Urine Glucose (UA) Negative (Negative) mg/dL Urine Ketones Negative (Negative) mg/dL Ur Blood (Man) Negative (Negative) Urine Nitrate Negative (Negative) Urine Bilirubin Negative (Negative) Urine Urobilinogen 0.2 (<2.0) mg/dL Leukocyte Esterase Rfl Negative (Negative) DANA/UL POC Urine HCG, Qual Negative (Negative) Blood Type O Positive Antibody Screen Negative Imaging Data Radiologist's impression: Impressions Abdomen/Pelvis CT 08/11/24 14:56 IMPRESSION: 1. No evidence of appendicitis, diverticulitis or intestinal obstruction. 2. Multiple small hypodensities in the liver. Follow-up advised. 3. Hepatomegaly with fat infiltration. 4. Hemangioma of the liver. 5. Right adrenal adenoma measuring 1.6 cm. MRI is advised 6. Subsegmental Atelectatic changes in the lung bases Discharge Plan Discharge Clinical Impression: Abnormal computed tomography of abdomen and pelvis, BRBPR (bright red blood per rectum), S/P colonoscopy, Hepatomegaly, Hemangioma of liver, Adrenal adenoma Patient Disposition: Home, Self-Care Condition: Stable Instructions: Antibiotic Form, Rectal Bleeding (ED), Colonoscopy (DC) Additional Instructions: As we discussed, the bleeding you are experiencing is often expected complication and should continue to get better. You can follow-up with your primary care physician if you continue to have some slow bleeding and think that an outpatient check of your hemoglobin (red blood cells) - either an H & H or CBC should be ordered as outpatient lab. You can also follow-up with your fly maker. Your incidentally found to have a right adrenal adenoma - your PCP can help you arrange outpatient follow up with an MRI. Return to the emergency department with any new or worsening symptoms such as a fever with a temperature greater than 100.4? F, pain not responding to the chronic opiates you are on, intractable nausea/vomiting (can use the oral disintegrating tablets prescribed if needed), or unrelenting blood, nearly passing out/fainting, etc. Patient Language: Djiboutian Prescriptions: New ondansetron 4 mg tablet,disintegrating 4 mg PO Q8H PRN (Reason: nausea and vomiting) Qty: 7 0RF No Action cyclobenzaprine 10 mg Tablet 10 mg PO TID albuterol sulfate 90 mcg/actuation Hfa Aerosol Inhaler 1 inh INHALATION QID PRN (Reason: Pain) duloxetine [Cymbalta] 30 mg Capsule,Delayed Release(Dr/Ec) 30 mg PO DAILY atorvastatin 10 mg tablet 10 mg PO DAILY famotidine 20 mg tablet 20 mg PO DAILY hydrochlorothiazide 25 mg tablet 25 mg PO DAILY metformin 1,000 mg tablet extended release 24hr 1,000 mg PO DAILY ibuprofen 800 mg Tablet 800 mg PO Q6H pregabalin 150 mg capsule 150 mg PO BID potassium chloride 20 mEq tablet extended release 40 meq PO DAILY acetazolamide 500 mg capsule, extended release 500 mg PO BID sumatriptan succinate 100 mg tablet 100 mg PO DAILY PRN (Reason: headache) fenofibrate See Rx Instructions .ROUTE DAILY Rx Instructions: 134 mg daily; hydrocodone-acetaminophen 10-325 mg tablet Follow-up/Referrals: Humphrey,PRITI Ramachandran [Primary Care Provider] - Nickolas Cherry MD [Physician] - (Gastroenterology) Stand Alone Forms: Work/School Release IP Time of Disposition: 16:09
[2024-08-11 14:04] VITALS: BP 118/73; PULSE 66; RESP 17; TEMP 36.6; O2SAT 99
[2024-08-11 14:12] LABS: Basophils Absolute Auto 0.1 K/mm3 (0.0-0.1); Basophils Percent Auto 1.2 % (0.2-1.2); Eosinophils Absolute Auto 0.1 K/mm3 (0-0.3); Eosinophils Percent Auto 1.6 % (0-4.4); Hematocrit 40.7 % (37.0-47.0); Hemoglobin 13.2 g/dL (12.0-15.0); Immature Granulocyte Absolute 0.02 K/mm3 (0.00-0.031); Immature Granulocyte Percent A 0.3 % (0-0.5); Lymphocytes Absolute Auto 2.74 K/mm3 (0.9-3.2); Lymphocytes Percent Auto 35.4 % (18.3-44.2); Mean Corpuscular HGB Conc 32.4 g/dl (32-36); Mean Corpuscular Hemoglobin 29.9 pg (26-34); Mean Corpuscular Volume 92.3 fl (80-100); Mean Platelet Volume 10.8 fl (7.4-10.4); Monocytes Absolute Auto 0.4 K/mm3 (0.1-0.6); Monocytes Percent Auto 4.5 % (2.6-8.5); Neutrophils Absolute Auto 4.4 K/mm3 (1.3-6.7); Platelet Count Result 291 k/mm3 (150-375); Red Blood Count 4.41 M/mm3 (4.2-5.4); Red Cell Distribution Width 15.4 % (11.5-14.5); White Blood Count 7.7 K/mm3 (4.5-10.0)
[2024-08-11 14:16] LABS: Add Urine Microscopic? NO; Appearance Urine Clear (Clear); Bilirubin Urine Negative (Negative); Blood Urine Negative (Negative); Color Urine Yellow (Yellow); Glucose Urine UA Negative (Negative); Ketones Urine Negative (Negative); Leukocyte Esterase Ur Negative LEU/UL (Negative); Nitrate Urine Negative (Negative); Protein Urine Negative (Negative); Specific Grav Ur 1.014 (1.001-1.035); Urobilinogen Urine 0.2 mg/dL (<2.0); pH Urine 6.5 (5.0-9.0)
[2024-08-11 14:23] LABS: Alanine Aminotransferase 29 U/L (6-35); Albumin Level 4.3 g/dL (3.5-5.1); Alkaline Phosphatase 65 U/L (38-126); Anion Gap 10 mmol/L (4-12); Aspartate Amino Transferase 23 U/L (14-36); Bilirubin,Total 0.4 mg/dL (0.2-1.3); Blood Urea Nitrogen 12 mg/dL (7-17); Calcium 8.8 mg/dL (8.4-10.2); Carbon Dioxide 25 mmol/L (22-30); Chloride 105 mmol/L (98-107); Estimated CRCL calculation 80 ml/min; Estimated Glomerular Filt Rate > 60; Glucose 91 mg/dL (65-110); Lactic Acid Reflex 0.9 mmol/L (0.7-2.0); Potassium 3.5 mmol/L (3.4-5.0); Sodium 140 mmol/L (137-145)
[2024-08-11 14:27] LABS: BEDSIDEPREGUCG Negative (Negative)
--- OUTSIDE RECORDS SUMMARY | 2024-08-11 15:17 | XMS_ITS | Referral Summary ---
Author Organization [facility] Address [address] [place] [address] Care Team Providers Care Vocational Director Name Role Phone Tabitha Felix MD [...] test Assessment & Plan (04/08/2024 5:14 PM HAND LAMINATOR): - Patient feels that her symptoms are [...] CNVM. Assessment & Plan (04/08/2024 5:13 PM HAND LAMINATOR): - Today with continued resolution of subretinal [...] for DFE OU, fundus photos OU (at [facility]), OCT mac OU, possible antiVEGF [...] and intravenous fluorescein angiography (IVFA) at the [facility] (testing visit) in 1 week --[facility] retina in 2 weeks for [...] on file Legal Sex Female 10:19 AM HAND LAMINATOR Gender Identity Not on file Sexual Orientation [...] by: Lian Owens M.D. us Antonio Troncoso RADIAGRAPH OPERATOR IMG MAMMO PROCEDURES Final Re sult * [...] LAB BLOOD ORDERABLES Final R esult [facility] [address] Department [place] [address] * (ABNORMAL) Lipid panel (02/21/2022) [...] to Health Maintenance Insurance MEDICARE [facility] MEDICARE [facility] Address: [address] [address] [place] [address] IDPA IDPA MEDICARE Care Teams Vocational Director Relationship Specialty Start Date End Date Tabitha Felix MD PCP - General 09/30/16
--- OUTSIDE RECORDS SUMMARY | 2024-08-11 15:17 | XMS_ITS | Encounter Summary ---
Author Organization [facility] Healthcare Address [address] [place] [address] Care Team Providers Care Phosphoric Acid Supervisor Name Role Phone Tabitha Felix MD Primary Care Provider + Reason for Visit * Diagnostic Imaging (Routine) - Closed Specialty Diagnoses / Procedures Referred By Yamel tenorio Referred To Contact Procedures Breast Imaging Screening Outside Reference Aft, Earnestine Gonzalez MD PhD [address] [place] [address] Phone: tel: fax: Referral ID Status Reason Start Date Expiration Date Visits Re quested Visits Authorized [id number] Closed 07/12/2021 08/11/2022 1 1 Encounter Details Date Type Department Care Team (Late st Contact Info) Description 04/14/2019 Hospital Encounter [facility] [address] [place] [address] [phone] Social History Tobacco Use Types Packs/Day Years [...] file Legal Sex Female 10:19 AM HAND CLERICAL VERIFIER Gender Identity Not on file Sexual Orientation [...] SCREENING OUTSIDE REFERENCE Routine 04/14/2019 12:00 AM HAND CLERICAL VERIFIER documented in this encounter Results * Breast Imaging Screening Outside Reference (04/14/2019 12:00 AM HAND CLERICAL VERIFIER) Impressions [facility] - 07/12/2021 4:25 PM HAND CLERICAL VERIFIER These images are for Reference purposes only and have not been reviewed by [facility]iology. There will be no report generated by a [facility] Radiologist. Narrative [facility] - 07/12/2021 4:25 PM HAND CLERICAL VERIFIER EXAMINATION: Images For Reference Purposes Only us Earnestine Morrow MD PhD IMG MAMMO PROCEDURES Final Result [facility] documented in this encounter Visit Diagnoses Not on filedocumented in this encounter Care Teams Phosphoric Acid Supervisor Relationship Specialty Start Date End Date Tabitha Felix MD PCP - General 09/30/16 documented as of this encounter
--- OUTSIDE RECORDS SUMMARY | 2024-08-11 15:17 | XMS_ITS | Clinical Summary ---
Author Organization [facility] Address [address] [place] [address] Care Team Providers Care Leasing Consultant Name Role Phone Tabitha Felix MD Primary [...] test Assessment & Plan (04/08/2024 5:14 PM SUPERVISOR COMPONENT ASSEMBLER): - Patient feels that her symptoms are [...] CDT): --patient has had persistent headaches, large onrwood spot centrally OS --exam with grade 2 [...] CNVM. Assessment & Plan (04/08/2024 5:13 PM SUPERVISOR COMPONENT ASSEMBLER): - Today with continued resolution of subretinal [...] for DFE OU, fundus photos OU (at [facility]), OCT mac OU, possible antiVEGF OS [...] and intravenous fluorescein angiography (IVFA) at the [facility] (testing visit) in 1 week --[facility] retina in 2 weeks for interpretation [...] Knee Surgery - (Added by TW Conv) ME TUBOTUBAL ANASTATOMOSIS Oviductal Surgery Tubotubal Anastomosis - [...] on file Legal Sex Female 10:19 AM SUPERVISOR COMPONENT ASSEMBLER Gender Identity Not on file Sexual Orientation [...] recommended. 2. Clinical follow-up is recommended. Dr. Olosn discussed the above findings and recommendations with [...] LAB BLOOD ORDERABLES Final R esult [facility] [address] Department [place] [address] * (ABNORMAL) Lipid panel (02/21/2022) [...] Recently Relevant to Health Maintenance Insurance MEDICARE [facility] Address: [address] [address] [place] [address] [facility] MEDICARE [employer] [facility] MEDICARE Care Teams Leasing Consultant Relationship Specialty Start Date End Date Tabitha Felix MD PCP - General 09/30/16
--- OUTSIDE RECORDS SUMMARY | 2024-08-11 15:17 | XMS_ITS | Encounter Summary ---
Author Organization [facility] Healthcare Address [address] [place] [address] Care Team Providers Care Rn Support Services Name Role Phone Tabitha Felix MD Primary Care Provider + Reason for Visit * Diagnostic Imaging (Routine) - Closed Specialty Diagnoses / Procedures Referred By Yamel tenorio Referred To Contact Procedures Breast Imaging Screening Outside Reference Aft, Earnestine Gonzalez MD PhD [address] [place] [address] Phone: tel: fax: Referral ID Status Reason Start Date Expiration Date Visits Re quested Visits Authorized [id number] Closed 07/12/2021 08/11/2022 1 1 Encounter Details Date Type Department Care Team (Late st Contact Info) Description 05/16/2020 Hospital Encounter [facility]iology [facility] [address] [place] [address] [phone] Social History Tobacco Use Types Packs/Day Years [...] on file Legal Sex Female 10:19 AM SHIPPER/RECEIVER Gender Identity Not on file Sexual Orientation [...] SCREENING OUTSIDE REFERENCE Routine 05/16/2020 12:00 AM SHIPPER/RECEIVER documented in this encounter Results * Breast Imaging Screening Outside Reference (05/16/2020 12:00 AM SHIPPER/RECEIVER) Impressions [facility] - 07/12/2021 4:25 PM SHIPPER/RECEIVER These images are for Reference purposes only and have not been reviewed by [facility]iology. There will be no report generated by a [facility] Radiologist. Narrative [facility] - 07/12/2021 4:25 PM SHIPPER/RECEIVER EXAMINATION: Images For Reference Purposes Only us Earnestine Morrow MD PhD IMG MAMMO PROCEDURES Final Result [facility] documented in this encounter Visit Diagnoses Not on filedocumented in this encounter Care Teams Rn Support Services Relationship Specialty Start Date End Date Tabitha Felix MD PCP - General 09/30/16 documented as of this encounter
--- OUTSIDE RECORDS SUMMARY | 2024-08-11 15:17 | XMS_ITS | Clinical Summary ---
Author Organization [employer] [facility] [facility] Address [id number] [place] [phone] Phone Care Team Providers Care Aligner Name Role Phone Tabitha Felix MD Primary Care Provider + Allergies Active Allergy Reactions Criticality Noted Date Comments Sulfa (Sulfonamide Antibiotics) Itching Low 04/25 Unclassified Drug Swelling Low 05/06/2018 Medications cyclobenzaprine (FLEXERIL) 10 mg tablet Take 10 mg by mouth 3 times daily as needed for Spasm. Active fluticasone (FLONASE) 50 mcg/spray [place]ita, Suspension Administer 2 Sprays in each nostril [...] on file Legal Sex Female 1:00 PM COLD STORAGE WORKER Gender Identity Not on file Sexual Orientation [...] Most Recently Relevant to Health Maintenance Insurance [facility] [employer] MEDICAID Care Teams Aligner Relationship Specialty Start Date End Date Tabitha Felix MD [address] [place] [address] [place] [address] PCP - General Family Practice 05/06/18
[2024-08-11] MEDS: ACETAMINOPHEN 500 MG TABLET 1000 MG PO (16:01)
== END 2024-08-11 16:31 | disposition home or self-care (01) ==
PROVIDERS: Emergency Provider Student in an Organized Health Care Education/Training Program; PCP Physician Assistant
DX: K62.5 Hemorrhage of anus and rectum (principal); R93.5 Abnormal findings on diagnostic imaging of other abdominal regions, including retroperitoneum; R16.0 Hepatomegaly, not elsewhere classified; D18.03 Hemangioma of intra-abdominal structures; D35.01 Benign neoplasm of right adrenal gland; F17.210 Nicotine dependence, cigarettes, uncomplicated; E11.9 Type 2 diabetes mellitus without complications; Z79.84 Long term (current) use of oral hypoglycemic drugs
CPT/HCPCS: 36415; 74177; 80053; 81003; 81025; 83605; 85025; 86850; 86900; 86901; 99284; A9270; Q9967

== ENCOUNTER 2024-09-19 09:53 | Outpatient (CLI) | payer MEDICARE, MEDICAID, SELFPAY ==
--- NOTE | ~2024-09-19 | MR_ITS ---
EXAMINATION: MR abdomen wo/w con DATE: 09/19/2024 11:40 INDICATION: Benign neoplasm of the right adrenal gland TECHNIQUE: Magnetic resonance imaging (MRI) of the abdomen was performed without and with 18 mL Multi nettie intravenous contrast. Sequences included coronal and axial T2-weighted SS-FSE, axial FS 2D-FIES TA, coronal and axial dual-echo T1-weighted FSPGR, axial T1-weighted LAVA, and axial STIR FSE. Postco ntrast axial T1-weighted LAVA images were obtained in a time course. Postcontrast coronal T1-weighted LAVA images were obtained. COMPARISON: CT dated 08/11/2024 FINDINGS: Heart size is normal. No pericardial or pleural effusion. Diffuse hepatic steatosis. There is a 4.2 x 2.9 cm hemangioma in the caudal right hepatic lobe with restricted diffusion, increased T2 signal is less than simple fluid attenuation, lobular margins and peripheral discontiguous puddling of contras t which progressively fills in centrally. There are 4 additional likely hemangiomas at L2 which also demonstrated peripheral puddling of contrast into which remain without enhancement throughout the cou rse of imaging. Gallbladder, spleen, pancreas and left adrenal gland and right kidney are normal. 2.0 x 1.4 cm right adrenal adenoma with characteristic signal dropout on opposed phase imaging consisten t with intracellular lipid. A couple T2 hyperintense nonenhancing cyst at the lower pole of the left kidney, the larger exophytic cyst is complex measuring 1.8 cm with dependently layering T1 hyperinten se layering blood versus proteinaceous fluid. The visualized bowels are normal including the appendix . No pathologically enlarged abdominal or upper pelvic lymphadenopathy. Severe lower lumbar spondylos is. Bone marrow signal is normal throughout. IMPRESSION: 1. 2.0 cm right adrenal adenoma. 2. Diffuse hepatic steatosis and several hepatic hemangiomas the largest measuring 4.2 cm. Reviewed, dictated and finalized at location B. IMPRESSION: 1. 2.0 cm right adrenal adenoma. 2. Diffuse hepatic steatosis and several hepatic hemangiomas the largest measur ing 4.2 cm.
--- OUTSIDE RECORDS SUMMARY | 2024-09-19 09:57 | XMS_ITS | Clinical Summary ---
Author Organization [facility] Address [address] [place] [address] Care Team Providers Care Booster Pump Oiler Name Role Phone Tabitha Felix MD Primary [...] test Assessment & Plan (04/08/2024 5:14 PM CLOTH NEUTRALIZER): - Patient feels that her symptoms are [...] CNVM. Assessment & Plan (04/08/2024 5:13 PM CLOTH NEUTRALIZER): - Today with continued resolution of subretinal [...] for DFE OU, fundus photos OU (at [facility]), OCT mac OU, possible antiVEGF OS [...] and intravenous fluorescein angiography (IVFA) at the [facility] (testing visit) in 1 week --[facility] retina in 2 weeks for interpretation [...] Knee Surgery - (Added by TW Conv) TX TUBOTUBAL ANASTATOMOSIS Oviductal Surgery Tubotubal Anastomosis - [...] on file Legal Sex Female 10:19 AM CLOTH NEUTRALIZER Gender Identity Not on file Sexual Orientation [...] Vaccine ( season) 2024 05/02/2021, 08/15/2020, 07/25/2020 eGFR 10/18/2024 10/19/2023, 10/12/2023 Breast Cancer Screening-Mammogram 12/24/2024 12/25/2023, 05/02/2022, 04/15/2018, Additional history exists Influenza Vaccine (Season Ended) 2025 02/21/2022, 02/06/2021, 02/22/2020, Additional history exists Dilated Eye Exam 04/08/2025 [...] LAB BLOOD ORDERABLES Final R esult [facility] [address] Department [place] [address] * (ABNORMAL) Lipid panel (02/21/2022) [...] Recently Relevant to Health Maintenance Insurance MEDICARE [facility] Address: [address] [address] [place] [address] [facility] MEDICARE [facility] MEDICARE Care Teams Booster Pump Oiler Relationship Specialty Start Date End Date Tabitha Felix MD PCP - General 09/30/16
--- OUTSIDE RECORDS SUMMARY | 2024-09-19 09:57 | XMS_ITS | Referral Summary ---
Author Organization [facility] Address [address] [place] [address] Care Team Providers Care Home Attendant Name Role Phone Tabitha Felix MD Primary [...] test Assessment & Plan (04/08/2024 5:14 PM DRY HEAT CABINET ATTENDANT): - Patient feels that her symptoms are [...] CNVM. Assessment & Plan (04/08/2024 5:13 PM DRY HEAT CABINET ATTENDANT): - Today with continued resolution of subretinal [...] for DFE OU, fundus photos OU (at [facility]), OCT mac OU, possible antiVEGF OS Assessment [...] intravenous fluorescein angiography (IVFA) at the [facility] (testing visit) in 1 week --[facility] retina in 2 weeks for interpretation of [...] on file Legal Sex Female 10:19 AM DRY HEAT CABINET ATTENDANT Gender Identity Not on file Sexual Orientation [...] by: Lian Owens M.D. us Antonio Troncoso BOX HINGE AND LOCK ATTACHER IMG MAMMO PROCEDURES Final Re sult * [...] LAB BLOOD ORDERABLES Final R esult [facility] [address] [place] [address] * (ABNORMAL) Lipid panel (02/21/2022) [...] Recently Relevant to Health Maintenance Insurance MEDICARE [facility] MEDICARE IDPA IDPA MEDICARE Care Teams Home Attendant Relationship Specialty Start Date End Date Tabitha Felix MD PCP - General 09/30/16
--- OUTSIDE RECORDS SUMMARY | 2024-09-19 09:58 | XMS_ITS | Encounter Summary ---
Author Organization [facility] Address [address] [place] [address] Care Team Providers Care Supervisor Coffee Name Role Phone Tabitha Felix MD Primary Care Provider + Reason for Visit * Diagnostic Imaging (Routine) - Closed Specialty Diagnoses / Procedures Referred By Yamel tenorio Referred To Contact Procedures Breast Imaging Screening Outside Reference Aft, Earnestine Gonzalez MD PhD [address] [place] [address] Phone: tel: fax: Referral ID Status Reason Start Date Expiration Date Visits Re quested Visits Authorized [id number] Closed 07/12/2021 08/11/2022 1 1 Encounter Details Date Type Department Care Team (Late st Contact Info) Description 04/14/2019 Hospital Encounter [facility] [address] [place] [address] [phone] Social History Tobacco Use Types Packs/Day Years [...] on file Legal Sex Female 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 There will be no report generated by a [facility] Radiologist. Narrative [facility] - 07/12/2021 4:25 PM SKEET OPERATOR EXAMINATION: Images For Reference Purposes Only us Earnestine Morrow MD PhD IMG MAMMO PROCEDURES Final Result [facility] documented in this encounter Visit Diagnoses Not on filedocumented in this encounter Care Teams Supervisor Coffee Relationship Specialty Start Date End Date Tabitha Felix MD PCP - General 09/30/16 documented as of this encounter
--- OUTSIDE RECORDS SUMMARY | 2024-09-19 09:58 | XMS_ITS | Data Portability ---
Author Organization [place] - [facility] [employer], Main Office Address [address] [place] [address] Care Team Providers Care Data Analytics Specialist Name Role Phone JD YIN Primary Care Provider [phone] JD YIN Referring Provider Assessment No assessment recorded. Plan of Treatment Reminders Order Date Submit Date Provider Last Modified By Organization Details Last Modified Time Details Appointments Follow Up 15 2024 08:30A M PRITI Rodríguez Not available Not available Not available Lab glycohemo globin, total, blood [address] (Lab), [address] [place], [address], 12/29/2023 08:35:16 CMP, serum or plasma [address] (Lab), [address] [place], [address], 12/29/2023 08:35:17 Referral gastroent erologist referral - Please call patient to schedule an appointme nt. Thank you. 2023 024 [email or web address] Jignesh Castelan MD, [address] [facility] [address], [address], [place], [address], 06/17/2024 09:23:43 gastroent erologist referral - Please call patient to schedule an appointme nt. Thank you. 2023 024 [email or web address] Tuyet Candelario MD, [address] [facility], [address], [address], 01/24/2024 07:52:44 Procedures None recorded. Surgeries None recorded. Imaging None recorded. Medication Orders hydrocodo ne 10 mg-acetam inophen 325 mg tablet 2024 [facility] #02428, [address] [place] [address], [id number], 07/06/2024 10:49:24 fenofibra te micronize d 134 mg capsule 2024 [facility] #98001, [address] [place] [address], [id number], 07/06/2024 10:54:08 hydroxyzi ne HCl 10 mg tablet 2024 [facility] #99625, [address] [place] [address], [id number], 07/06/2024 10:50:24 hydrochlo rothiazid e 25 mg tablet 2024 [facility] #34695, [address] [place] [address], [id number], 07/06/2024 10:49:19 escitalop carole 10 mg tablet 2024 [facility] #68002, [address] [place] [address], [id number], 07/06/2024 10:47:47 escitalop carole 20 mg tablet 2024 025 [facility] #59638, [address] [place] [address], [id number], 07/06/2024 10:47:46 potassium chloride ER 20 mEq tablet,ex tended release 2023 024 [facility] #99732, [address] [place] [address], [id number], 03/30/2024 11:17:10 hydrocodo ne 10 mg-acetam inophen 325 mg tablet 2023 024 [facility] #94695, [address], [id number], 12/22/2023 17:22:52 ketorolac 60 mg/2 mL intramusc ular solution 2023 024 [email or web address] Not available 12/22/2023 17:39:58 Depo-Medr ol 80 mg/mL suspensio n for injection 2023 024 [email or web address] Not available 12/22/2023 17:41:46 prednison e 20 mg tablet 2023 024 [email or web address] [facility] #17055, [address], [id number], 03/30/2024 11:05:33 Klor-Con M20 mEq tablet,ex tended release 2023 024 [id number] [facility] #07463, [address], [id number], 07/29/2024 19:06:19 Patient TargetsNo targets recorded. Patient Instructions Encounter Date Encounter Id Patient Instructions Last Modified By Organization Details Last Modified Time 07/06/2024 [id number] she feels she is a mess. Counseled . no si/hi. 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 reviewed labs , gave copy . has a fatty liver , liver enzymes up a little . discuss with her GI doc . avoid sugars a1c is 6.1..... was 5.9 last time marla Not available 07/06/2024 11:04:12 Reason for Referral Staff Reporter Referral for Screening for malignant neoplasm of colon Please call patient to schedule an appointment. Thank you. Referring Physician: Jd Yin, Family Medicine, Encounter Date: 12/22/2023 Staff Reporter Referral for Screening for malignant neoplasm of colon Needs a screening colonoscopy . Please call patient to schedule an appointment. Thank you. Referring Physician: Jd Yin, Family Medicine, Encounter Date: 03/30/2024 Results Created Date Observation Date Name Description Value Unit Range Abnormal Flag Note LastModifiedBy Organization Detail LastModifiedTime 12/25/19 24 12/25/2023 imagi ng/di agnos tic resul t No observ ation record ed. KATHLEEN [place] [id number] [facility], [place], [address], 01/19/2024 12:40:19 12/25/19 24 12/25/2023 MAMMO , diagn ostic , digit al, bilat eral No observ ation record ed. [email or web address] [address], [place], [address], 01/05/2024 23:41:44 12/25/19 24 12/25/2023 MAMMO , diagn ostic , digit al, bilat eral No observ ation record ed. [email or web address] [facility] (Cam) [address] [place] [address] [address], [place], [address], 01/05/2024 23:41:45 08/12/19 25 08/11/2024 MRI, adren al gland , w/wo contr ast No observ ation record ed. [email or web address] [facility] 2022 Gela Jerez [facility] [address], [place], [address], 09/08/2024 09:37:39 Result Notes None recorded. Problems Name Problem SNOMED Code Status Onset Date Resolution Date Notes Provider Name and Address Organization Details Recorded Time Exacerba tion of backache 172177039 Active 2016 Not Available [facility] 3 02:51:41 Abnormal weight gain 208457251 Active Not Available [facility] 3 02:51:41 Postoper ative visit 307579001 Active 2021 Not Available [facility] 3 02:51:41 Dehiscen ce of surgical wound 79671868 Active 2021 Not Available [facility] 3 02:51:41 Pain in right foot 28183027165 9107 Active 2021 Not Available [facility] 3 02:51:41 Mild dietary indigest ion 372235700 Active Not Available [facility] 3 02:51:41 Bunion 828634421 Active 2021 Not Available [facility] 3 02:51:41 Bunion 069111280 Active Not Available [facility] 3 02:51:42 Hyperlip idemia 17976803 Active 2019 Not Available [facility] 3 02:51:42 Essentia l hyperten tad 24589574 Active 2019 Not Available [facility] 3 02:51:42 Cigarett e smoker 99770451 Active 2021 Not Available [facility] 3 02:51:42 Hypercal cemia 08737109 Active Not Available [facility] 3 02:51:42 Torticol lis 78004358 Active Not Available [facility] 3 02:51:42 Prediabe kiana 987723234 Completed 201902/06/2021 Not Available [facility] 3 02:51:42 Diabetes mellitus 02365354 Active 2019 Not Available [facility] 3 02:51:42 Degenera tion of interver tebral disc 63099388 Active 2022 Tabitha Felix MD [address] [facility], [facility] [address], [place], [address] , [employer] [facility] [employer] [facility] 3 10:26:21 Ingrowin g toenail 185941011 Active 2022 Tabitha Felix MD [address], [place], [address] , [facility] [employer] [facility] [employer] [facility] 3 07:42:59 Degenera tion of lumbar interver tebral disc 21765185 Active 2022 Tabitha Felix MD [address], [address], [place], [address] , [place] [facility] 3 11:30:16 Menopaus al symptom 72219204 Active 2022 Tabitha Felix MD [address], [address], [place], [address] , [place] [facility] 3 11:36:45 Increase d liver function 89355653 Active 2022 Tabitha Felix MD [address], [address], [place], [address] , [place] [facility] 3 11:37:03 Vitamin D deficien cy 96212188 Active 2022 Tabitha Felix MD [address], [address], [place], [address] , [place] [facility] [place] [facility] 3 11:37:35 Herpes labialis 7798479 Active 2022 MARIA ELENA Mckeon [address], [address], [place], [address] , [place] [facility] 3 14:04:26 Pain of right knee joint 81304398193 4100 Active 2022 Kadi Rebollar, ATC L null, [place] [facility] 3 10:35:05 Derangem ent of medial meniscus 324640783 Active 2022 PRITI Magaña [address], [address], [place], [address] , [place] [facility] [place] [facility] 3 11:13:19 Derangem ent of medial meniscus 168301727 Active 2022 PRITI Magaña [address], [address], [place], [address] , [place] [facility] [place] [facility] 3 11:14:09 Osteoart hritis of right knee joint 63890553013 9100 Active 2022 PRITI Magaña [address], [address], [place], [address] , [facility] 3 11:14:09 Tear of medial meniscus of knee 115116684 Active 2022 Keturah reyna, [facility] [place] [facility] 3 10:32:12 Tear of medial meniscus of knee 661257366 Active 2022 Keturah reyna, [facility] 3 10:32:24 Skin lesion 80088287 Active 2022 Tabitha Felix MD [address], [address], [place], [address] , [facility] 3 08:24:04 Hypokale gladis 36805836 Active 2022 Tabitha Felix MD [address], [place], [address] , [facility] 3 09:48:46 Restless legs 25168039 Active 2023 Tabitha Felix MD [address], [address], [place], [address] , [facility] 4 08:34:02 Thyroid function tests abnormal 845511446 Active 2023 Tabitha Felix MD [address], [address], [place], [address] , [facility] 4 18:07:22 Pain in throat 344890275 Active 2023 Tabitha Felix MD [address], [place], [address] , [facility] 4 07:49:23 Vaginiti s 19374458 Active 2023 Tabitha Felix MD [address], [address], [place], [address] , [facility] 4 13:39:54 Upper respirat ory infectio n 17176213 Active 2023 BEN Forde [address], [place], [address] , [facility] 4 12:27:55 Type 2 diabetes mellitus without complica tion 935770276 Active 2023 Tabitha Felix MD [address], [address] [facility], [place], [address] , [facility] 4 08:34:40 Visual field scotoma 33929665 Active 2023 Tabitha Felix MD [address], [place], [address] , [facility] 4 09:37:00 Visual impairme nt 674656705 Active 2023 Tabitha Felix MD [address], [address] [facility], [place], [address] , [facility] [employer] [facility] 4 09:37:19 Benign intracra nial hyperten tad 43036787 Active 2023 see ophthalm ology notes [facility]. Dr. Julieta Sanchez I tried to change to Idiopath ic intracra nial hyperten tad . PRITI Rodríguez [address], [place], [address] , [facility] [employer] [facility] 4 17:19:44 Mammogra phy abnormal 563867713 Active 2023 BEN Forde [address], [place], [address] , [facility] [employer] [facility] 4 16:05:15 Mass of right breast 79898174044 856429 Active 2023 BEN Forde [address], [address], [place], [address] , [facility] [employer] [facility] 4 12:49:11 Screenin g for malignan t neoplasm of colon Active 2023 PRITI Rodríguez [address], [address], [place], [address] , [place] [facility] 4 17:31:51 Migraine 06066355 Active 2023 PRITI Rodríguez [address], [address], [place], [address] , [place] [facility] 4 16:02:14 Adult health examinat ion Active 2023 PRITI Rodríguez [address], [address], [place], [address] , [place] [facility] 4 10:37:32 Nicotine dependen ce 95567361 Active 2023 PRITI Rodríguez [address], [place], [address] , [place] [facility] 4 11:22:23 Overweig ht 909703428 Active 2024 PRITI Rodríguez [address], [place], [address] , [place] [facility] 5 14:54:44 Depressi ve disorder 72974822 Active 2024 PRITI Rodríguez [address], [place], [address] , [employer] [place] [facility] 5 10:45:25 Anxiety 30610764 Active 2024 PRITI Rodríguez [address], [place], [address] , [place] [facility] 5 10:49:31 Sinusiti s 41513004 Active 2024 PRITI Rodríguez [address], [place], [address] , [place] [facility] 5 14:00:42 Adrenal adenoma 021375997 Active 2024 PRITI Rodríguez [address], [place], [address] , [place] [facility] 5 09:56:40 Obese 025209817 Active 2024 PRITI Rodríguez [address] [facility], [place], [address] , [employer] [facility] 5 10:04:30 Type 2 diabetes mellitus 04901500 Active 2024 PRITI Rodríguez [address], [place], [address] , [employer] 5 10:06:02 Notes:lumbar injury diabilit y . Problem Notes None recorded. Procedures Surgical History Date Name Laterality Status Provider Name and Address Organization Details Recorded Time 09/03/19 23 Medicare Wellness CPT Code, subsequent completed Neena Guzmán RN [place] [employer] [facility] 08/29/2022 15:14:34 05/26/19 19 Hysterectomy, Partial completed Not Available [facility] 07/24/2022 02:40:07 05/26/19 11 Knee Surgery completed Kadi Meyer RN [place] [employer] [facility] 12/22/2023 17:04:50 excision of fibroadenoma of breast completed Not Available [facility] 07/24/2022 02:40:07 Knee Surgery completed Kadi Meyer RN [place] [employer] [facility] 12/22/2023 17:05:02 excision of bunion completed Kadi Meyer RN [place] [employer] [facility] 12/22/2023 17:05:19 removal of ovarian cyst completed Kadi Meyer RN [place] [employer] [facility] 12/22/2023 17:05:35 Imaging Results Imaging Date Name Status LastModified by Organiz atmission [facility] Details LastModified Time 12/25/2023 imaging/diagno stic result completed [facility] [address] [place] [address], [address], 01/19/2024 12:40:19 12/25/2023 MAMMO, diagnostic, digital, bilateral completed [email or web address] [address], [address], 01/05/2024 23:41:44 12/25/2023 MAMMO, diagnostic, digital, bilateral completed [email or web address] [facility] (Cam) [address], [place], [address], 01/05/2024 23:41:45 08/11/2024 MRI, adrenal gland, w/wo contrast completed [email or web address] [facility] [address], [place], [address], 09/08/2024 09:37:39 Procedure Notes None recorded. Medical Equipment None Reported. Allergies Allergen ID Allergen Name Allergen Category Reaction Reaction Severity Criticality Documentation Date Start Date Code Code System Note Provider Name and Address Organization Details Recorded Time 4990 Substance with sulfonami de structure and antibacte rial mechanism of action (substanc e) medicatio n itching moderate Not available 07/24/20222011 31518 8003 SNOMED for knee surg Not Available [facility] 3 03:06:01 4991 [employer] en[employer] medicatio n seizure severe Not available 07/24/2022 94204 5 RxNorm extre me swell ing in lips. Not Available [facility] 3 03:06:01 Medications Name Sig Start Date [...] MOUTH EVERY 12 HOURS FOR 10 DAYS 09/07 completed Not Available Not Available Not Available Tamiflu 75 mg capsule Take 1 [...] EVERY DAY active Pt was advised at [facility] ER to take 2 tabs [...] mg by injectio n route. 11/07 completed [facility]: 0003-049 4-20 Not Available Not Available Not [...] completed Not Available Not Available Not Available nicotine 21 mg/24 hr daily transderm al patch APPLY 1 PATCH TO SKIN EVERY DAY active Not Available Not Available No t Available gabapenti n 300 mg capsule active Not Available Not Available Not Available Banophen 25 mg capsule TAKE 1 CAPSULE BY MOUTH EVERY 6 HOURS NEEDED 12/21 completed Not Available Not Available Not Available diclofena c sodium 75 mg tablet,de layed release TAKE 1 TABLET TWICE A DAY BY ORAL ROUTE NEEDED. 05/18 /2023 completed Not Available Not Available Not Available [...] Not Available Not Available Not Avai lable ketoconaz ole 2 % topical cream active [...] TAKE 1 CAPSULE BY MOUTH EVERY DAY 09/07 completed Not Available Not Available Not Available BD Ultra-Fin e Mini Pen Needle [...] administ ered by the provider 12/05 completed [facility]: 0409-427 11-09 Not Available Not Available Not [...] INJECT 1MG UNDER THE SKIN EVERY WEEK active Not Available Not Available No t Available [employer] COVID-19 Antigen Home Test kit [...] Updated DateTime 4 170.18 cm 28.2 kg/m2 83161.6 3 g 98.4 [degF] 87 /min 97 % 97 % 16 /min 122 mm[Hg] 86 mm[Hg] Kadi Meyer RN [place] [employer] [facility] 4 17:07:29 Date Recorded Body height Body mass index (BMI) Body weight Body temperature Heart rate Oxygen saturation Oxygen saturation in Arterial blood by Pulse oximetry Systolic blood pressure Diastolic blood pressure Provider Name and Address Organization Details Last Updated DateTime 4 170.18 cm 27.9 kg/m2 68612.4 4 g 98.5 [degF] 97 /min 97 % 97 % 130 mm[Hg] 86 mm[Hg] Kadi Meyer RN [facility] [employer] [facility] 4 11:08:58 Date Recorded Body height Body mass index (BMI) Body weight Body temperature Systolic blood pressure Diastolic blood pressure Provider Name and Address Organization Details Last Updated DateTime 5 170.18 cm 28.8 kg/m2 90398 g 96.2 [degF] 118 mm[Hg] 84 mm[Hg] Waleska Marquez CNA [facility] [employer] [facility] 5 10:35:56 Date Recorded Body height Body mass index (BMI) Body weight Body temperature Heart rate Oxygen saturation Oxygen saturation in Arterial blood by Pulse oximetry Systolic blood pressure Diastolic blood pressure Provider Name and Address Organization Details Last Updated DateTime 5 170.18 cm 30.7 kg/m2 96432.1 g 96.9 [degF] 69 /min 96 % 96 % 124 mm[Hg] 76 mm[Hg] Haydee Bennett [facility] [employer] [facility] 5 09:49:48 Social History Question Answer Notes LastModified by Organizat ion Details LastModified Time Tobacco Smoking Status Current Every Day Smoker Not Available [facility] 07/24/2022 02:31:53 Do You Have An Advance Directive? No MIGRATION.18502 21876 Information not available 07/24/2022 What Is Your Level Of Alcohol Consumption? None MIGRATION.72518 86826 Information not available 07/24/2022 Do You Wear A Helmet When Biking? No MIGRATION.93507 94565 Information not available 07/24/2022 What Is Your Level Of Caffeine Consumption? Moderate MIGRATION.08038 86127 Information not available 07/24/2022 In The 14 Days Before Symptom Onset, Have You Had Close Contact With A Laboratory-confi rmed COVID-19 While That Case Was Ill? No MIGRATION.05345 65870 Information not available 07/24/2022 In The 14 Days Before Symptom Onset, Have You Had Close Contact With A Person Who Is Under Investigation For COVID-19 While That Person Was Ill? No MIGRATION.58497 34085 Information not available 07/24/2022 What Type Of Diet Are You Following? REGULAR Low Carb MIGRATION.59504 66893 Information not available 07/24/2022 Which Illicit Or Recreational Drugs Have You Used? No MIGRATION.41240 21954 Information not available 07/24/2022 Do You Or Have You Ever Used E-cigarettes Or Vape? Never Used Electronic Cigarettes MIGRATION.91913 15441 Information not available 07/24/2022 What Is Your Occupation? Disable MIGRATION.34413 32306 Information not available 07/24/2022 Have There Been Any Changes To Your Family Or Social Situation? No MIGRATION.59183 05775 Information not available 07/24/2022 Are There Any Guns Present In Your Home? No MIGRATION.68045 33771 Information not available 07/24/2022 Do You Use Insect Repellent Routinely? No MIGRATION.09704 01441 Information not available 07/24/2022 Where Do You Live? [facility] MIGRATION.36044 15077 Information not available 07/24/2022 Advance Directive- Providers Has Reviewed Directive And Consents To Follow Them (insert Provider Name With Any Objectives In Notes Field) No MIGRATION.08596 51706 Information not available 07/24/2022 Are You Following A Low Salt Diet? 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 No MIGRATION.72008 57203 Information not available 07/24/2022 What Was The Date Of Your Most Recent Tobacco Screening? 09/02/2022 [email or web address] Information not available 09/02/2022 Do You Have Any Pets? Yes MIGRATION.37737 25031 Information not available 07/24/2022 What Is Your Relationship Status? MIGRATION.53224 13313 Information not available 07/24/2022 Do You Use Your Seat Belt Or Car Seat Routinely? Yes MIGRATION.75746 70364 Information not available 07/24/2022 Do You Have Smoke And Carbon Monoxide Detectors In Your Home? Yes MIGRATION.08495 97399 Information not available 07/24/2022 At What Age Did You Start Smoking Tobacco? 14 MIGRATION.74011 12120 Information not available 07/24/2022 Are You Passively Exposed To Smoke? No MIGRATION.25190 55033 Information not available 07/24/2022 Do You Or Have You Ever Used Smokeless Tobacco? Never Used Smokeless Tobacco MIGRATION.34705 60143 Information not available 07/24/2022 Are There Any Smokers In Your House? Yes MIGRATION.22642 68634 Information not available 07/24/2022 How Much Tobacco Do You Smoke? 1 PPD MIGRATION.57560 95060 Information not available 07/24/2022 Do You Participate In Social Media? No MIGRATION.47401 07574 Information not available 07/24/2022 Do You Feel Stressed (tense, Restless, Nervous, Or Anxious, Or Unable To Sleep At Night)? [id number] MIGRATION.70488 38653 Information not available 07/24/2022 Do You Use Any Illicit Or Recreational Drugs? No [email or web address] Information not available 10/03/2022 Do You Use Sunscreen Routinely? Yes MIGRATION.75472 64848 Information not available 07/24/2022 How Many Years Have You Smoked Tobacco? 25 [email or web address] Information not available 11/07/2022 Have You Recently Traveled Abroad? No MIGRATION.65901 89805 Information not available 07/24/2022 Are You Currently In School? No MIGRATION.83675 38861 Information not available 07/24/2022 Do You Have Any Dietary Restrictions? Yes MIGRATION.16326 73191 Information not available 07/24/2022 Sex: Unknown Functional Status Question Answer Note LastModified by Organizat ion Details LastModified Time What is your exercise level? Occasional MIGRATION.[id number] 26 Information not available 07/24/2022 Mental Status None recorded. Family History Relationship Description Onset Age of this Age Resolved Age Notes LastModified by Organization Details LastModified Time Maternal Grandfather Diabetes mellitus [id number] Not available 07/24/2022 02:40:11 Maternal Grandfather Essential hypertension [email or web address] Not available 03/2025 10:24:56 Maternal Grandfather Heart disease [email or web address] Not available 2022 10:19:17 Paternal Grandfather Diabetes mellitus [id number] Not available 07/24/2022 02:40:11 Father Diabetes mellitus [id number] Not available 07/24/2022 02:40:11 Mother Essential hypertension [email or web address] Not available 03/2025 10:24:56 Maternal Grandmother Malignant tumor of breast Not available 2024 10:24:56 Maternal Grandmother Family history of malignant neoplasm [email or web address] Not available 2024 10:24:56 Medical History Condition Response BLINDNESS N RHEUMATIC FEVER N KIDNEY STONES N BLADDER PROBLEMS N OTHER # 1 N POLIO N LUNG DISEASE/DISORDER N RADIATION / CHEMOTHERAPY N COPD N Other # 2 N BLOOD DISEASES N SURGERY N EAR OR HEARING PROBLEMS N MUMPS N FEMALE PROBLEMS / INFECTIONS N BOWEL PROBLEMS N DEPRESSION (INCLUDING POST ) N STROKE/TIA [...] HAVE YOU BEEN HOSPITALIZED OR SEEN IN [facility] IN THE PAST YEAR ? N ATHEROSCLEROSIS [...] 50 mcg/0.25mL dose 08/15/2020 completed Not Available [facility] 3 03:05:24 COVID-19, mRNA, LNP-S, PF, 30 mcg/0.3 mL dose 05/02/2021 completed Not Available [facility] 3 03:05:24 COVID-19, mRNA, LNP-S, PF, 100 mcg/0.5mL dose or 50 mcg/0.25mL dose 07/25/2020 completed Not Available [facility] 3 03:05:24 Influenza, split virus, quadrivalent, PF 02/22/2020 completed Not Available [facility] 3 03:05:24 Tdap 06/01/2019 completed Not Available [facility] 07/24/2022 03:05:25 Influenza, split virus, quadrivalent, PF 03/15/2019 completed Not Available [facility] 3 03:05:25 Influenza, split virus, quadrivalent, PF 02/25/2018 completed Not Available [facility] 3 03:05:25 Influenza, split virus, quadrivalent, PF 02/21/2022 completed Not Available [facility] 3 03:05:25 Influenza, split virus, quadrivalent, PF 02/06/2021 completed Not Available [facility] 3 03:05:25 Influenza, split virus, quadrivalent, PF 05/27/2017 completed Not Available [facility] 3 03:05:25 Past Encounters Encounter ID Performer Location Encounter Start Date Encounter Closed Date Diagnosis/Indication Diagnosis SNOMED-CT Code Diagnosis ICD10 Code Diagnosis Note [id number] [facility] [address] [place] [address] 08/10/2020 00:00:00 08/22/2020 10:48:30 [id number] [facility] [place] [address] [place] [address] 11/07/2020 00:00:00 11/07/2020 08:37:16 [id number] [facility] [place] [address] [place] [address] 11/23/2020 00:00:00 11/23/2020 11:50:00 [id number] [facility] [place] [address] [place] [address] 12/05/2020 00:00:00 12/05/2020 08:31:58 [id number] [facility] [place] [address] [place] [address] 01/02/2021 00:00:00 01/02/2021 14:47:39 [id number] [facility] [place] [address] [place] [address] 01/02/2021 00:00:00 01/02/2021 09:06:32 [id number] [facility] [place] [address] [place] [address] 02/06/2021 00:00:00 02/06/2021 08:25:13 [id number] [facility] [place] [address] [place] [address] 03/15/2021 00:00:00 03/15/2021 10:14:16 [id number] [facility] [place] [address] [place] [address] 04/26/2021 00:00:00 05/04/2021 08:11:18 [id number] [facility] [place] [address] [place] [address] 05/29/2021 00:00:00 05/29/2021 09:18:56 [id number] [facility] [place] [address] [place] [address] 08/28/2021 00:00:00 08/28/2021 08:55:11 [id number] [facility] [place] [address] [place] [address] 09/06/2021 00:00:00 09/06/2021 15:44:49 [id number] [facility] [place] [address] [place] [address] 09/25/2021 00:00:00 10/19/2021 12:33:55 [id number] [facility] [place] [address] [place] [address] 11/05/2021 00:00:00 11/06/2021 09:50:15 [id number] [facility] [place] [address] [place] [address] 11/12/2021 00:00:00 11/12/2021 13:27:04 [id number] [facility] [place] [address] [place] [address] 11/29/2021 00:00:00 11/29/2021 10:16:04 [id number] [facility] [place] [address] [place] [address] 12/13/2021 00:00:00 12/13/2021 13:09:18 [id number] [facility] [place] [address] [place] [address] 12/25/2021 00:00:00 12/25/2021 08:46:26 [id number] [facility] [place] [address] [place] [address] 02/04/2022 00:00:00 02/04/2022 10:05:22 [id number] [facility] [place] [address] [place] [address] 02/21/2022 00:00:00 02/21/2022 13:53:14 [id number] [facility] Primary [facility] [place] [address] [place] [address] 02/26/2022 00:00:00 02/26/2022 13:59:32 [id number] [facility] [place] [address] [place] [address] 04/30/2022 00:00:00 04/30/2022 10:05:48 [id number] [facility] [place] [address] [place] [address] 06/03/2022 00:00:00 06/03/2022 18:32:03 [id number] Tabitha Felix MD [facility] Primary [facility] [place] [address] [place] [address] 09/02/2022 11:10:20 09/02/2022 12:23:32 Adult health examination 736827214 Z00.00 mammogram and US done /p hysterecto my, no paps neededcolo n cancer screen age 44recomm[age] d smoking cessationy early flu vaccinecov id booster recommende d Screening for disorder 486086060 Z13.9 Degenerati on of lumbar intervertebral disc 18598580 M51.36 sees neurosurge ry on Fri Menopausal symptom 76236 002 N95.1 Hyperlipidemia 05236967 E78.5 Z79.899 Vitamin D deficiency 347 33523 E55.9 Diabetes mellitus 500068 09 E11.9 increase ozempic 1 mg Essential hypertension 50722252 I10 [id number] Tabitha Felix MD [facility] Primary [facility] [place] [address] [place] [address] 10/03/2022 12:39:08 10/03/2022 13:19:17 Increased liver function 89024210 R94.5 repeat lfts [id number] PRITI Magaña [facility] [place] [address] [place] [address] 10/10/2022 10:15:44 10/10/2022 11:18:10 Pain of right knee joint 0814026245 85388 M25.561 Osteoarthr itis of right knee joint 6941629515 36448 M17.11 Derangemen t of medial meniscus 304609833 M23.331 [id number] Avelino Yin MD [facility] [place] [address] [place] [address] 10/24/2022 10:09:54 10/24/2022 11:24:10 Derangement of medial meniscus 226658833 M23.331 Pain of ri ght knee joint 6475822725 76713 M25.561 Osteoarthr itis of right knee joint 2966587349 32272 M17.11 Tear of me dial meniscus of knee 304509504 S83.241A Pre-surger y evaluation 410562617 Z01.818 [id number] Avelino Yin MD [facility] [place] [address] [place] [address] 11/07/2022 10:00:11 11/07/2022 11:14:42 Derangement of medial meniscus 234055747 M23.331 Pain of ri ght knee joint 3762161003 38740 M25.561 Osteoarthr itis of right knee joint 5805159350 65146 M17.11 Tear of me dial meniscus of knee 011512732 S83.241A Postoperative visit 1836 84981 Z09 [id number] Tabitha Felix MD [facility] [address] [place] [address] 01/07/2023 08:00:56 01/07/2023 08:42:49 Diabetes mellitus 92684352 E11.9 stableozem pic 1 mg sc qweekcheck labs Skin lesion 98325376 L98 .9 derm referral Essential hypertension 88058001 I10 stablechec k labs Degenerati on of lumbar intervertebral disc 86063740 M51.36 stablePt understand s this medication has risk for abuse/depe ndence and agrees to take it only as prescribed and to guard from loss/theft [place] prescript[place] on monitoring website reviewed [id number] Tabitha Felix MD [facility] [place] [address] [place] [address] 07/08/2023 08:23:23 07/08/2023 08:44:48 Diabetes mellitus 30942983 E11.9 stableozem pic 1 mg sc qweekcheck labs update 07/08/23: increase ozempic 2 mg weekly to improve weight losscheck labs Restless legs 48649069 G 25.81 R53.83 R63.5 D64.9 continue pregabalin 150 mg bidcheck labsconsid er ropinirole if labs are normal Hyperlipidemia 55267018 E78.5 Z79.601 [id number] Tabitha Felix MD [facility] Primary Care [facility] [address] [facility] [address] [place] [address] 10/07/2023 08:14:01 10/07/2023 08:34:38 Renewal of prescription 774214532 Z76.0 Degenerati on of intervertebral disc 85754814 M51.9 stable Diabetes mellitus 384496 09 E11.9 stableozem pic 1 mg sc qweekcheck labs update 07/08/23: increase ozempic 2 mg weekly to improve weight [facility] labs update 10/07/23: did not tolerate ozempic 2 mg, ok to continue ozempic 1 mg sc [id number] 5.8 Hyperlipidemia 17831241 E78.5 Z79.899 monitor triglyceri shawanda Hypokalemia 03174492 E87 .6 stablerefi ll given [id number] MARIA ELENA Forde-Avila [facility] Primary Care [address] [place] [address] 11/11/2023 14:36:02 11/11/2023 15:27:43 [id number] BEN Forde [facility] Care [address] [place] [address] 11/18/2023 15:51:49 11/18/2023 16:17:11 Benign intracranial hypertension 30617085 G93.2 appt with neuro the 19 of January Mammography abnormal 168 215518 R92.8 Degenerati on of intervertebral disc 14493256 M51.9 [id number] [facility]ITI Rod[facility]guez [facility] [address] [place] [address] 12/22/2023 16:39:37 03/05/2024 13:07:29 Benign intracranial hypertension 97573651 G93.2 Type 2 amaya betes mellitus without complication 104954104 E11.9 Degenerati on of lumbar intervertebral disc 48870222 M51.36 Degenerati on of intervertebral disc 04152862 M51.9 Hypokalemia 43746516 E87 .6 Screening for malignant neoplasm of colon 664025569 Z12.11 Adult heal th examination 647312100 Z00.00 Essential hypertension 74418815 I10 Tear of me dial meniscus of knee 849371562 S83.241A Vitamin D deficiency 347 22930 E55.9 [id number] [facility] [address] [place] [address] 03/30/2024 10:59:06 03/30/2024 11:29:01 Hypokalemia 80985197 E87.6 Screening for malignant neoplasm of colon 844969619 Z12.11 Benign int racranial hypertension 37535857 G93.2 Degenerati on of lumbar intervertebral disc 63388015 M51.361 Essential hypertension 83350888 I10 Hyperlipidemia 43267827 E78.5 Osteoarthr itis of right knee joint 3245878943 18380 M17.11 Tear of me dial meniscus of knee 796818556 S83.241A Type 2 amaya betes mellitus without complication 692825282 E11.9 Vitamin D deficiency 347 80297 E55.9 [id number] PRITI Rodríguez [address] [address] 07/02/2024 08:48:32 07/02/2024 10:47:49 [id number] PRITI Rodríguez [address] [address] 07/06/2024 10:24:20 07/06/2024 10:59:39 Depressive disorder 56397899 F32.A Renewal of prescription 950396375 Z76.0 Degenerati on of intervertebral disc 42417078 M51.9 [facility] 46919791 F41.9 [facility] 10608718 E78.5 [id number] Margaret Elkins [facility] [address] [address] 09/07/2024 09:38:20 09/07/2024 10:14:44 Health Concerns Section Related Observation LastModified by Organization Detai ls LastModified Time None Recorded Concern Status LastModified by Organization Details LastModified Time None Recorded Advance Directives Directive N: Payers Encounter Date Sequence Insurance Name Policy Number Policy Garcia Covered Member ID Garcia Member ID Guarantor Name 12/22/2023 1 [place] Yissel Sanchez Frauenfelder [id number] Yissel Sanchez Frauenfelder 12/22/2023 2 [place] WHEN MED[place]ARE OR MEDICARE REPLACEMENT PRIMARY) Yissel Sanchez Frauenfelder [id number] Yissel Sanchez Frauenfelder 03/30/2024 1 [place] Yissel Sanchez Frauenfelder [id number] Yissel Sanchez Frauenfelder 03/30/2024 2 [place] OR [place] REPLACEMENT PR[place]) Yissel Sanchez Frauenfelder [id number] Yissel Sanchez Frauenfelder 07/02/2024 1 [place] Yissel Sanchez Frauenfelder [id number] 7 Yissel Sanchez Frauenfelder 07/02/2024 2 [place] OR [place]IC[place] REPLACEMENT PR[place]) Yissel Sanchez Frauenfelder [id number] Yissel Sanchez Frauenfelder 07/06/2024 1 [place] Yissel Sanchez Frauenfelder [id number] 7 [id number] 7 Yissel Sanchez Frauenfelder 07/06/2024 2 [place] OR [place]IC[place] REPLACEMENT PRIMARY) Yissel Robertson [id number] Ysisel Robertson Notes Date Note Type Note Provider Name and Address Organization Details Recorded Time 12/22/2023 text/html 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 her brother lung cancer , mouth cancer .. can't sleep , has colonoscopy scheduled , parents had polyps . PRITI Rodríguez [address], [place], [address], [employer] 07/10/2024 11:53:34 OBGyn Episode No OBEpisode recorded.
--- OUTSIDE RECORDS SUMMARY | 2024-09-19 09:58 | XMS_ITS | Clinical Summary ---
Author Organization [facility] Address [id number] [place] [address] Phone Care Team Providers Care Radiator Mechanic Name Role Phone Tabitha Felix MD Primary Care Provider + Allergies Active Allergy Reactions Criticality Noted Date Comments Sulfa (Sulfonamide Antibiotics) Itching Low 04/25 Unclassified Drug Swelling Low 05/06/2018 Medications cyclobenzaprine (FLEXERIL) 10 mg tablet Take 10 mg by mouth 3 times daily as needed for Spasm. 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
--- OUTSIDE RECORDS SUMMARY | 2024-09-19 09:58 | XMS_ITS | Encounter Summary ---
Author Organization [facility] Healthcare Address [address] [place] [address] Care Team Providers Care Accessibility Lift Technician Name Role Phone Tabitha Felix MD Primary Care Provider + Reason for Visit * Diagnostic Imaging (Routine) - Closed Specialty Diagnoses / Procedures Referred By Yamel tenorio Referred To Contact Procedures Breast Imaging Screening Outside Reference Aft, Earnestine Gonzalez MD PhD [address] [place] [address] Phone: tel: fax: Referral ID Status Reason Start Date Expiration Date Visits Re quested Visits Authorized [id number] Closed 07/12/2021 08/11/2022 1 1 Encounter Details Date Type Department Care Team (Late st Contact Info) Description 05/16/2020 Hospital Encounter [facility] [address] [place] [phone] Social History Tobacco Use Types Packs/Day Years [...] on file 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 There will be no report generated by a [facility] Radiologist. Narrative [facility] - 07/12/2021 4:25 PM ORE CRUSHING DUST COLLECTOR EXAMINATION: Images For Reference Purposes Only us Earnestine Morrow MD PhD IMG MAMMO PROCEDURES Final Result [facility] documented in this encounter Visit Diagnoses Not on filedocumented in this encounter Care Teams Accessibility Lift Technician Relationship Specialty Start Date End Date Tabitha Felix MD PCP - General 09/30/16 documented as of this encounter
== END 2024-09-19 09:54 | disposition home or self-care (01) ==
LOC: ANHIMG 09:55
PROVIDERS: PCP Physician Assistant; Visit Provider Physician Assistant
DX: D35.01 Benign neoplasm of right adrenal gland (principal); K76.0 Fatty (change of) liver, not elsewhere classified
CPT/HCPCS: 74183; A9579